=== PATIENT | female | born 1995 | race African-American/Black ===

== ENCOUNTER 2016-12-16 09:57 | Emergency (ER) | payer OTHER ==
[2016-12-16 10:10] VITALS: BP 146/84; PULSE 81; TEMP 98.1; BMI 43.7
[2016-12-16] MEDS ORDERED: FLUORESCEIN NA 1 EA STRIP ONE (10:56)
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
== END 2016-12-16 11:12 | disposition home or self-care (01) ==
LOC: JERFT 09:57
DX: S05.12XA Contusion of eyeball and orbital tissues, left eye, initial encounter (principal); H11.32 Conjunctival hemorrhage, left eye; Y04.2XXA Assault by strike against or bumped into by another person, initial encounter; Y93.89 Activity, other specified; Y92.89 Other specified places as the place of occurrence of the external cause; Y99.8 Other external cause status
CPT/HCPCS: 99281-25

== ENCOUNTER 2017-07-30 21:50 | Inpatient (IN) | payer OTHER ==
[2017-07-30] MEDS ORDERED: ELECTROLYTE-148 SOLN 500 ML IV ONE ×2 (22:20→23:20)
[2017-07-30] MEDS ORDERED: ELECTROLYTE-148 SOLN 1,000 ML IV SCH (23:45)
[2017-07-30] MEDS ORDERED: CITRIC ACID/SODIUM CITRATE 30 ML UNIT-DOSE CUP PO ONE (23:50)
--- NOTE | 2017-07-31 00:01 | HP ---
Past Medical History - Admission Chief Complaint: Labor pain History of Present Illness: 21 yo @ 39 weeks gestation with previous , presents c/o labor pain. She admits to have regular diet at 7pm. She's obese and a repeat was scheduled for 08/03/17. History Source: Patient Limitations to Obtaining History: No Limitations - Past Medical History Cardiovascular: Yes: HTN (not in past). No: Murmur Pulmonary: Yes: Other (no c/o SOB) ...: 2 ...Para: 1 Heme/Onc: Yes: Anemia Endocrine: Yes: Other (morbid obesity). No: Diabetes Mellitus - Past Surgical History Past Surgical History: Yes: Hx Myomectomy: No Hx Transabdominal Cerclage: No - Smoking History Smoking history: Never smoked Have you smoked in the past 12 months: No Aproximately how many cigarettes per day: 5 - Alcohol/Substance Use Hx Alcohol Use: No History of Substance Use: reports: None - Social History History of Recent Travel: No Home Medications - Allergies Allergies/Adverse Reactions: Allergies Allergy/AdvReac Type Severity Reaction Status Date / Time milk Allergy Severe Difficulty Verified 07/30/17 23:47 Breathing No Known Drug Allergies Allergy Severe Difficulty Verified 07/30/17 23:47 Breathing peanut Allergy Severe Difficulty Verified 07/30/17 23:47 Breathing - Home Medications Home Medications: Ambulatory Orders NK [No Known Home Medication] 07/30/17 Family Disease History - Family Disease History Family History: Unremarkable Review of Systems - Review of Systems Constitutional: reports: No Symptoms Eyes: reports: No Symptoms HENT: reports: No Symptoms Neck: reports: No Symptoms Cardiovascular: reports: No Symptoms Respiratory: reports: No Symptoms Gastrointestinal: reports: No Symptoms Genitourinary: reports: Pain Breasts: reports: No Symptoms Reported Musculoskeletal: reports: No Symptoms Integumentary: reports: No Symptoms Neurological: reports: No Symptoms Endocrine: reports: No Symptoms Hematology/Lymphatic: reports: No Symptoms Psychiatric: reports: No Symptoms Pain Intensity: 5 Physical Exam - Maternity Constitutional: Yes: Well Nourished Eyes: Yes: Conjunctiva Clear HENT: Yes: Atraumatic Neck: Yes: Supple, Trachea Midline Cardiovascular: Yes: Regular Rate and Rhythm Lungs: Clear to auscultation Breast(s): Yes: WNL - Abdominal Exam/OB Number of Fetuses: Single Presentation: Vertex - Vaginal Exam/OB Vaginal Bleediing: No Dilatation (cm): 1 Effacement (%): 60 Amniotic Membrane Status: Intact Problem List - Problems (1) Previous section complicating , antepartum condition or complication Code(s): O34.219 - MATERNAL CARE FOR UNSP TYPE SCAR FROM PREVIOUS DEL Assessment/Plan IUP @ 39 weeks Previous Pre op for repeat Low platelets Transfuse platelets Prep and shave Anesthesia to see patient
[2017-07-31 00:05] VITALS: BMI 46.9
[2017-07-31] MEDS ORDERED: IBUPROFEN 600 MG TABLET (FP) PO PRN (07:37)
[2017-07-31] MEDS ORDERED: ONDANSETRON 4 MG/2 ML VIAL IVPB PRN (07:37)
[2017-07-31] MEDS ORDERED: morphine SULFATE/Preservative Free 0.5 MG/ML (1cc Syringe) EP ONE (07:37)
[2017-07-31] MEDS ORDERED: IBUPROFEN 800 MG/8 ML IJ IVPB PRN (07:38)
[2017-07-31] MEDS ORDERED: METHYLERGONOVINE MALEATE 0.2 MG/1 ML AMP IM PRN (08:43)
--- NOTE | 2017-07-31 08:46 | OP ---
Operative Note - Note: Operative Date: 07/31/17 Pre-Operative Diagnosis: Previous in labor Operation: Repeat Low Transverse Post-Operative Diagnosis: Same as Pre-op Surgeon: Kelsey Sherman Drupal Developer: Wero Ferguson Anesthesia: Spinal Specimens Removed: Placenta Estimated Blood Loss (mls): 600
[2017-07-31 09:46] LABS: MCH 24.8 pg (25.7-33.7); MCHC 32.2 g/dl (32.0-36.0); MEAN PLT VOLUME 10.8 fl (7.5-11.1); PLATELET COUNT 95 K/MM3 (134-434); WHITE BLOOD COUNT 6.6 K/mm3 (4.0-10.0)
[2017-07-31] MEDS: OXYTOCIN 20 UNITS in 0.9% NS 1,000 ML IV SCH ×2 (09:46→16:49)
[2017-07-31] MEDS ORDERED: TUBERCULIN PPD 5 TU/0.1ML SYRINGE (IN PATIENT USE ONLY) ID ONE (11:00)
[2017-07-31] MEDS: FERROUS SO4 325 MG TABLET (FP) PO SCH ×2 (11:18→22:58)
[2017-07-31] MEDS: PRENATAL VITAMINS W/ FOLIC ACID TABLET (FP) PO SCH (11:19)
[2017-08-01 08:05] LABS: BASOPHIL 0.8 % (0-2.0); EOSINOPHIL 0.7 % (0-4.5); MCH 24.5 pg (25.7-33.7); MCHC 32.3 g/dl (32.0-36.0); MEAN CELL VOLUME 75.9 fl (80-96); MEAN PLT VOLUME 10.7 fl (7.5-11.1); NEUTROPHILS 79.1 % (42.8-82.8); PLATELET COUNT 95 K/MM3 (134-434); RDW 16.5 % (11.6-15.6); WHITE BLOOD COUNT 8.3 K/mm3 (4.0-10.0)
--- NOTE | 2017-08-01 08:42 | PN ---
Progress Note (short form) - Note Progress Note: Post op day#1.S/P C Section under spinal anesthesia with duramorph uneventful.Patient stable has little pain for which she is on medication.No any anesthesia related problem.Patient DC from the anesthesia care.
[2017-08-01] MEDS ORDERED: BISACODYL 10 MG SUPP.RECT RC PRN (08:43)
[2017-08-01] MEDS: OXYTOCIN 20 UNITS in 0.9% NS 1,000 ML IV SCH (08:45)
--- NOTE | 2017-08-01 09:34 | PN ---
Post Progress Note - Subjective Subjective: 21 yo Para 2, status post repeat seen and evaluated. She's lying in bed, doing well, no complaints. Post Day: 1 Type of Delivery: Repeat C/S Vital Signs: Vital Signs Temperature 99.3 F 08/01/17 05:57 Pulse Rate 71 08/01/17 05:57 Respiratory Rate 20 08/01/17 05:57 Blood Pressure 116/68 08/01/17 05:57 O2 Sat by Pulse Oximetry (%) 100 07/31/17 09:45 Breast Exam: Yes: Soft Uterus: Yes: Fundus Firm Incision: Yes: Dressing dry and intact Abdomen/GI: Yes: Abdomen soft, Tolerating PO Lochia: Yes: Rubra Lochia, amount: Small Extremities: Yes: Calves non-tender Perineum: Yes: Intact Activity: Ambulating - Labs Labs: CBC WBC 8.3 K/mm3 (4.0-10.0) 08/01/17 07:35 RBC 4.54 M/mm3 (3.60-5.2) 08/01/17 07:35 Hgb 11.1 GM/dL (10.7-15.3) 08/01/17 07:35 Hct 34.5 % (32.4-45.2) 08/01/17 07:35 MCV 75.9 fl (80-96) L 08/01/17 07:35 MCH 24.5 pg (25.7-33.7) L 08/01/17 07:35 MCHC 32.3 g/dl (32.0-36.0) 08/01/17 07:35 RDW 16.5 % (11.6-15.6) H 08/01/17 07:35 Plt Count 95 K/MM3 (134-434) L 08/01/17 07:35 MPV 10.7 fl (7.5-11.1) 08/01/17 07:35 Neutrophils % 79.1 % (42.8-82.8) 08/01/17 07:35 Lymphocytes % 13.8 % (8-40) D 08/01/17 07:35 Monocytes % 5.6 % (3.8-10.2) 08/01/17 07:35 Eosinophils % 0.7 % (0-4.5) 08/01/17 07:35 Basophils % 0.8 % (0-2.0) 08/01/17 07:35 Problem List - Problems (1) Previous section complicating , antepartum condition or complication Code(s): O34.219 - MATERNAL CARE FOR UNSP TYPE SCAR FROM PREVIOUS DEL Assessment/Plan Status post repeat Ambulation Analgesia as needed Continue routine Post op care
[2017-08-01] MEDS: PRENATAL VITAMINS W/ FOLIC ACID TABLET (FP) PO SCH (10:00)
[2017-08-01] MEDS: FERROUS SO4 325 MG TABLET (FP) PO SCH ×2 (10:00→22:00)
[2017-08-01] MEDS: ACETAMINOPHEN 325 MG TABLET (FP) PO PRN (19:09)
[2017-08-01] MEDS: IBUPROFEN 600 MG TABLET (FP) PO PRN (19:09)
[2017-08-01] MEDS: oxyCODONE HCL 5 MG TABLET PO PRN (19:15)
[2017-08-01] MEDS: SIMETHICONE 80 MG TAB.CHEW (FP) PO PRN (19:15)
[2017-08-02] MEDS: SIMETHICONE 80 MG TAB.CHEW (FP) PO PRN ×2 (07:11→17:32)
[2017-08-02] MEDS: IBUPROFEN 600 MG TABLET (FP) PO PRN ×2 (07:11→17:32)
[2017-08-02] MEDS: ACETAMINOPHEN 325 MG TABLET (FP) PO PRN (07:11)
--- NOTE | 2017-08-02 07:23 | PN ---
Post Progress Note Post Day: 3 Type of Delivery: Repeat C/S Vital Signs: Vital Signs Temperature 99.1 F 08/01/17 22:00 Pulse Rate 72 08/01/17 22:00 Respiratory Rate 20 08/01/17 22:00 Blood Pressure 143/68 08/01/17 22:00 O2 Sat by Pulse Oximetry (%) 100 07/31/17 09:45 Breast Exam: Yes: Soft Uterus: Yes: Fundus Firm Abdomen/GI: Yes: Abdomen soft Lochia: Yes: Rubra Lochia, amount: Small Extremities: Yes: Calves non-tender Perineum: Yes: Intact Activity: Ambulating - Labs Labs: CBC WBC 8.3 K/mm3 (4.0-10.0) 08/01/17 07:35 RBC 4.54 M/mm3 (3.60-5.2) 08/01/17 07:35 Hgb 11.1 GM/dL (10.7-15.3) 08/01/17 07:35 Hct 34.5 % (32.4-45.2) 08/01/17 07:35 MCV 75.9 fl (80-96) L 08/01/17 07:35 MCH 24.5 pg (25.7-33.7) L 08/01/17 07:35 MCHC 32.3 g/dl (32.0-36.0) 08/01/17 07:35 RDW 16.5 % (11.6-15.6) H 08/01/17 07:35 Plt Count 95 K/MM3 (134-434) L 08/01/17 07:35 MPV 10.7 fl (7.5-11.1) 08/01/17 07:35 Neutrophils % 79.1 % (42.8-82.8) 08/01/17 07:35 Lymphocytes % 13.8 % (8-40) D 08/01/17 07:35 Monocytes % 5.6 % (3.8-10.2) 08/01/17 07:35 Eosinophils % 0.7 % (0-4.5) 08/01/17 07:35 Basophils % 0.8 % (0-2.0) 08/01/17 07:35 Assessment/Plan doing well minimal pain oob reg diet
[2017-08-02] MEDS: FERROUS SO4 325 MG TABLET (FP) PO SCH ×2 (10:00→21:51)
[2017-08-02] MEDS: PRENATAL VITAMINS W/ FOLIC ACID TABLET (FP) PO SCH (10:00)
--- NOTE | 2017-08-02 13:25 | PATH ---
Surgical Pathology Report Patient Name: CHARLES BRYANT Med. Rec. 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 Specimen(s) Received PLACENTA Clinical History Final Diagnosis PLACENTA, DELIVERY: FOCALLY DISRUPTED THIRD TRIMESTER PLACENTA WITH SUBCHORIONIC AND INTERVILLOUS FIBRIN DEPOSITION, THREE VESSEL UMBILICAL CORD AND UNREMARKABLE PLACENTAL MEMBRANES. Electronically Signed Jose Viramontes M.D. Gross Description The specimen is received fresh labeled placenta and is a 637 gram, 21.0 x 18.0 x 2.8 cm. placenta with attached membranes and umbilical cord. The attached membranes are mendez, translucent with focal opacities and insert marginally. The umbilical cord measures 32 cm. in length and averages 1.2 cm. in diameter. The cord inserts eccentrically, 5 cm. to the nearest margin. No true knots or strictures are identified. Cut surface of the umbilical cord reveals 3 vessels. The surface is witt-blue with minimal fibrin deposition and appropriate caliber vessels. The maternal surface is red-brown with focal defects. Sectioning reveals red-brown, spongy parenchyma. No lesions are identified. Follow Up Clerk sections are submitted in three cassettes as follows: 1- membrane rolls and umbilical cord; 2-3- full thickness sections of placenta. 08/01/201708/01/2017
[2017-08-02] MEDS: oxyCODONE HCL 5 MG TABLET PO PRN (17:32)
[2017-08-03] MEDS: oxyCODONE HCL 5 MG TABLET PO PRN (02:36)
[2017-08-03] MEDS: SIMETHICONE 80 MG TAB.CHEW (FP) PO PRN (02:36)
[2017-08-03] MEDS: IBUPROFEN 600 MG TABLET (FP) PO PRN (02:41)
[2017-08-03] MEDS: ACETAMINOPHEN 325 MG TABLET (FP) PO PRN (02:42)
[2017-08-03 08:30] LABS: BASOPHIL 0.5 % (0-2.0); EOSINOPHIL 3.2 % (0-4.5); MCH 24.6 pg (25.7-33.7); MCHC 32.1 g/dl (32.0-36.0); MEAN CELL VOLUME 76.7 fl (80-96); MEAN PLT VOLUME 11.1 fl (7.5-11.1); NEUTROPHILS 59.7 % (42.8-82.8); PLATELET COUNT 104 K/MM3 (134-434); RDW 16.4 % (11.6-15.6); WHITE BLOOD COUNT 5.8 K/mm3 (4.0-10.0)
[2017-08-03] MEDS: PRENATAL VITAMINS W/ FOLIC ACID TABLET (FP) PO SCH (09:20)
[2017-08-03] MEDS: FERROUS SO4 325 MG TABLET (FP) PO SCH (09:20)
[2017-08-03 10:26] VITALS: BP 126/63; PULSE 68; TEMP 98.1
== END 2017-08-03 12:00 | disposition home or self-care (01) | DRG 540 ==
LOC: JDEL 21:50 → JLDR 23:00 → J3W 07-31 10:04
PROVIDERS: ADMIT Obstetrics & Gynecology; ATTEND Obstetrics & Gynecology
PROC: 10D00Z1 Extraction of Products of Conception, Low, Open Approach (ICD-10-PCS; principal; 2017-07-31)
DX: O34.211 Maternal care for low transverse scar from previous cesarean delivery (principal); E66.01 Morbid (severe) obesity due to excess calories; Z68.42 Body mass index [BMI] 45.0-49.9, adult; Z3A.39 39 weeks gestation of pregnancy; Z37.0 Single live birth
CPT/HCPCS: 36415; 36430; 85025; 85027; 88307-TC; 94010; P9034

== ENCOUNTER 2017-08-11 18:14 | Emergency (ER) | payer OTHER ==
[2017-08-11 18:25] VITALS: BP 134/80; PULSE 65; TEMP 98.6; BMI 41.6
--- NOTE | 2017-08-11 19:17 | PDOC ---
History of Present Illness - General Chief Complaint: Wound Stated Complaint: SUTURE CHECK Time Seen by Provider: 08/11/17 18:28 History Source: Patient Exam Limitations: No Limitations - History of Present Illness Initial Comments: 08/11/17 19:38 21-year-old female with no medical history, presents to the emergency department complaining of malodorous, watery discharge to her incision 2 days. Patient states she noticed some of the brian are loose to her incision. Patient had a on 07/31/2017. Patient denies fever, chills, headache, dizziness, lightheadedness, nausea/vomiting, chest pain, shortness of breath, abdominal pains, flank pains, urinary symptoms. Timing/Duration: reports: week Past History - Past Medical History Allergies/Adverse Reactions: Allergies Allergy/AdvReac Type Severity Reaction Status Date / Time milk Allergy Severe Difficulty Verified 08/11/17 18:21 Breathing No Known Drug Allergies Allergy Severe Difficulty Verified 08/11/17 18:21 Breathing peanut Allergy Severe Difficulty Verified 08/11/17 18:21 Breathing Home Medications: Ambulatory Orders Cephalexin [Keflex] 500 mg PO TID #15 capsule 08/11/17 Sulfamethoxazole/Trimethoprim [Bactrim Ds -] 1 tab PO BID #14 tablet 08/11/17 Anemia: Yes Asthma: No Cancer: No Cardiac Disorders: No Diabetes: No HTN: Yes Seizures: No Thyroid Disease: No - Surgical History Abdominal Surgery: Yes - Reproductive History (#): 1 Para: 0 - Suicide/Smoking/Psychosocial Hx Smoking Status: Yes Smoking History: Current every day smoker Have you smoked in the past 12 months: No Number of Cigarettes Smoked Daily: 7 Information on smoking cessation initiated: No 'Breaking Loose' booklet given: 09/14/16 Hx Alcohol Use: No Drug/Substance Use Hx: No Substance Use Type: None Hx Substance Use Treatment: No Review of Systems - Review of Systems Able to Perform ROS?: Yes Comments:: 08/11/17 19:38 CONSTITUTIONAL: Absent: fever, chills, diaphoresis, generalized weakness, malaise, loss of appetite HEENT: Absent: rhinorrhea, nasal congestion, throat pain, throat swelling, difficulty swallowing, mouth swelling, ear pain, eye pain, visual Changes CARDIOVASCULAR: Absent: chest pain, loss of consciousness, palpitations, irregular heart rate, peripheral edema RESPIRATORY: Absent: cough, shortness of breath, dyspnea with exertion, orthopnea, wheezing, stridor, hemoptysis GASTROINTESTINAL: Absent: abdominal pain, abdominal distension, nausea, vomiting, diarrhea, constipation, melena, hematochezia GENITOURINARY: Absent: dysuria, frequency, urgency, hesitancy, hematuria, flank pain, genital pain MUSCULOSKELETAL: Absent: myalgia, arthralgia, joint swelling SKIN: 10cm horizontal lower pelvic c section incision/+drainage/malodorous Absent: rash, itching, pallor Is the patient limited Nepali proficient: No *Physical Exam - Vital Signs Last Vital Signs Temp Pulse Resp BP Pulse Ox 98.6 F 65 18 134/80 100 08/11/17 18:20 08/11/17 18:20 08/11/17 18:20 08/11/17 18:20 08/11/17 18:20 - Physical Exam Comments: 08/11/17 19:38 GENERAL: Well developed, well nourished. Awake and alert. No acute distress. HEENT: Normocephalic, atraumatic. PERRLA, EOMI. No conjunctival pallor. Sclera are non- icteric. Moist mucous membranes. Oropharynx is clear. NECK: Supple. Full ROM. No JVD. Carotid pulses 2+ and symmetric, without bruits. No thyromegaly. No lymphadenopathy. CARDIOVASCULAR: Regular rate and rhythm. No murmurs, rubs, or gallops. Distal pulses are 2+ and symmetric. PULMONARY: No evidence of respiratory distress. Lungs clear to auscultation bilaterally. No wheezing, rales or rhonchi. ABDOMINAL: Soft. Non-tender. Non-distended. No rebound or guarding. No organomegaly. Normoactive bowel sounds. MUSCULOSKELETAL Normal range of motion at all joints. No bony deformities or tenderness. No CVA tenderness. EXTREMITIES: No cyanosis. No clubbing. No edema. No calf tenderness. SKIN: 10 cm horizontal incision to lower pelvic abd/ Brian mid section loose/skin dehisced to the mid section with mild purulent discharge/malodorous Warm and dry. Normal capillary refill. No rashes. No jaundice. Progress Note - Progress Note Progress Note: 1942 hrs: Dr. Kelsey Sherman [phone]/ Pt's Roll Tester 1945rhs: Called Dr. 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
[2017-08-11] MEDS ORDERED: CEPHALEXIN MONOHYDRATE 500 MG CAPSULE (UD) PO ONE (19:33)
[2017-08-11] MEDS ORDERED: SULFAMETHOXAZOLE/TRIMETHOPRIM 800MG/160MG D.S. TABLET PO ONE (19:33)
[2017-08-11] MEDS ORDERED: CEPHALEXIN MONOHYDRATE 500 MG CAPSULE (UD) ONE (19:36)
[2017-08-11] MEDS ORDERED: SULFAMETHOXAZOLE/TRIMETHOPRIM 800MG/160MG D.S. TABLET ONE (19:36)
--- NOTE | 2017-08-14 22:07 | PDOC ---
Patient Follow-up (Call Back) - Post ED Follow - Up Chief Complaint: Wound Infection Condition at time of discharge: Stable Disposition at time of original discharge: HOME Reason for Call Back: Abnwl. Microbiology (Wound culture with multiple different organisms. Pt. placed on bactrim and keflex. Spoke with pt, states she followed up with her linotypist and they are monitoring her incision site. Taking antibiotics as prescribed.)
--- NOTE | 2017-08-19 06:45 | PDOC ---
Patient Follow-up (Call Back) - Post ED Follow - Up Condition at time of discharge: Stable Disposition at time of original discharge: HOME Reason for Call Back: Abnwl. Microbiology (wound cx + for proteus mirabilis, enterobacter aerogenes, entero faecalis, strep viridans, and diptheroid/ corynabacterium. Pt placed on keflex and bactrim which will cover organisms except entero faecalis. Levaquin showed sensativity. Rx for levaquin sent to [facility].)
== END 2017-08-11 20:33 | disposition home or self-care (01) ==
LOC: JERFT 18:14 → SUPCPDRO 18:14 → JERFT 20:33
DX: O90.0 Disruption of cesarean delivery wound (principal); O16.5 Unspecified maternal hypertension, complicating the puerperium
CPT/HCPCS: 87070; 87076; 87186; 87205; 99281-25

== ENCOUNTER 2018-10-21 21:15 | Emergency (ER) | payer OTHER ==
[2018-10-21 21:27] VITALS: BP 142/78; PULSE 90; BMI 45.1
[2018-10-21] MEDS ORDERED: ACETAMINOPHEN 500 MG TABLET (FP) PO ONE (21:44)
[2018-10-21] MEDS ORDERED: ACETAMINOPHEN 325 MG TABLET (FP) ONE (21:48)
--- NOTE | 2018-10-21 22:45 | PDOC ---
History of Present Illness - General Chief Complaint: Cold Symptoms Stated Complaint: FEVER, CHILLS, THROAT PAIN Time Seen by Provider: 10/21/18 22:33 History Source: Patient Exam Limitations: Clinical Condition - History of Present Illness Initial Comments: 10/21/18 22:41 Patient with no significant past medication history present with complaint of nasal congestion, runny nose, fever and sore throat since yesterday. Patient denies cough, diarrhea or vomiting. Patient denies any other symptoms. Timing/Duration: 24 hours Past History - Past Medical History Allergies/Adverse Reactions: Allergies Allergy/AdvReac Type Severity Reaction Status Date / Time milk Allergy Severe Difficulty Verified 10/21/18 21:28 Breathing No Known Drug Allergies Allergy Severe Difficulty Verified 10/21/18 21:28 Breathing peanut Allergy Severe Difficulty Verified 10/21/18 21:28 Breathing Home Medications: Ambulatory Orders Amox-Tr/K Cl [Augmentin - 875Mg Tablet] 1 tab PO BID #14 tablet 10/21/18 Ipratropium [place] 2 spray NS BID PRN #1 spray 10/21/18 Anemia: Yes Asthma: No Cancer: No Cardiac Disorders: Yes (bradycardia) COPD: No Diabetes: No HTN: Yes Seizures: No Thyroid Disease: No - Surgical History Abdominal Surgery: (Yes- ) - Reproductive History (#): 1 Para: 0 - Immunization History Immunization Up to Date: No - Suicide/Smoking/Psychosocial Hx Smoking Status: Yes Smoking History: Current every day smoker Have you smoked in the past 12 months: No Number of Cigarettes Smoked Daily: 8 Information on smoking cessation initiated: No 'Breaking Loose' booklet given: 09/14/16 Hx Alcohol Use: No Drug/Substance Use Hx: No Substance Use Type: None Hx Substance Use Treatment: No Review of Systems - Review of Systems Able to Perform ROS?: Yes Is the patient limited Setswana proficient: No Constitutional: Yes: Fever, Malaise HEENTM: Yes: Symptoms Reported, See HPI, Nose Congestion. No: Eye Pain, Blurred Vision, Tearing, Recent change in vision, Double Vision, Cataracts, Ear Pain, Ocular Prothesis, Ear Discharge, Nose Pain, Tinnitus, Nose Bleeding, Hearing Loss, Throat Pain, Throat Swelling, Mouth Pain, Dental Problems, Difficulty Swallowing, Mouth Swelling, Other Respiratory: No: Symptoms reported, See HPI, Cough, Orthopnea, Shortness of Breath, SOB with Exertion, SOB at Rest, Stridor, Wheezing, Productive cough, Hemoptysis, Other Cardiac (ROS): No: Symptoms Reported, See HPI, Chest Pain, Edema, Irregular Heart Rate, Lightheadedness, Palpitations, Syncope, Chest Tightness, Other ABD/GI: No: Nausea, Vomiting All Other Systems: Reviewed and Negative *Physical Exam - Vital Signs Last Vital Signs Temp Pulse Resp BP Pulse Ox 102.5 F H 90 18 142/78 100 10/21/18 21:22 10/21/18 21:22 10/21/18 21:22 10/21/18 21:22 10/21/18 21:22 - Physical Exam Comments: 10/21/18 22:44 GENERAL: Well developed, well nourished. Awake and alert. No acute distress. HEENT: Normocephalic, atraumatic. PERRLA, EOMI. No conjunctival pallor. Sclera are non-icteric. Moist mucous membranes. Oropharynx is clear. NECK: Supple. Full ROM. CARDIOVASCULAR: Regular rate and rhythm. No murmurs, rubs, or gallops. Distal pulses are 2+ and symmetric. PULMONARY: No evidence of respiratory distress. Lungs clear to auscultation bilaterally. No wheezing, rales or rhonchi. ABDOMINAL: Soft. Non-tender. Non-distended. No rebound or guarding. No organomegaly. Normoactive bowel sounds. MUSCULOSKELETAL Normal range of motion at all joints. EXTREMITIES: No cyanosis. No clubbing. No edema. No calf tenderness. SKIN: Warm and dry. Normal capillary refill. No rashes. No jaundice. NEUROLOGICAL: Alert, awake, appropriate. Gait is normal without ataxia. PSYCHIATRIC: Cooperative. Good eye contact. Appropriate mood General Appearance: Yes: Nourished, Appropriately Dressed. No: Apparent Distress Moderate Sedation - Procedure Monitoring Vital Signs: Procedure Monitoring Vital Signs Temperature 102.5 F H 10/21/18 21:22 Pulse Rate 90 10/21/18 21:22 Respiratory Rate 18 10/21/18 21:22 Blood Pressure 142/78 10/21/18 21:22 O2 Sat by Pulse Oximetry (%) 100 10/21/18 21:22 ED Treatment Course - Medications Given in the ED: ED Medications Discontinued Medications Generic Name Dose Route Start Last Admin Trade Name Freq PRN Reason Stop Dose Admin Acetaminophen 975 mg 10/21/18 21:44 10/21/18 21:50 Tylenol - PO 10/21/18 21:45 975 mg ONCE ONE Administration Medical Decision Making - Medical Decision Making 10/21/18 22:44 Patient with no significant past medical history present with complaint of nasal congestion, fever, bodyaches and sore throat since yesterday. Clinical exam unremarkable except fever. Tylenol given for fever. Rapid strep and rapid flu tests ordered. Treat based on lab results 10/21/18 23:11 Rapid strep positive. Rapid flu negative. Patient is stable for discharge for outpatient treatment for strep pharyngitis with Augmentin and nasal spray for nasal congestion. *DC/Admit/Observation/Transfer Diagnosis at time of Disposition: Strep pharyngitis Fever Qualifiers: Fever type: unspecified Qualified Code(s): R50.9 - Fever, unspecified - Discharge Dispostion Disposition: HOME Condition at time of disposition: Stable Decision to Admit order: No - Prescriptions Prescriptions: Amox-Tr/K Cl [Augmentin - 875Mg Tablet] 1 tab PO BID #14 tablet Ipratropium [place] 2 spray NS BID PRN #1 spray PRN Reason: nasal congestion - Referrals - Patient Instructions Printed Discharge Instructions: Strep Throat Additional Instructions: Your strep was positive. Take medication as prescribed. Alternate between Tylenol and Motrin as needed for fever. Increase fluid intake. Follow-up with primary care as needed - Post Discharge Activity Forms/Work/School Notes: Back to Work
[2018-10-21 22:59] VITALS: TEMP 101.1
== END 2018-10-21 23:11 | disposition home or self-care (01) ==
LOC: JERFT 21:15
DX: J02.0 Streptococcal pharyngitis (principal); B95.0 Streptococcus, group A, as the cause of diseases classified elsewhere; I10 Essential (primary) hypertension; F17.210 Nicotine dependence, cigarettes, uncomplicated
CPT/HCPCS: 87804; 87880; 99281-25

== ENCOUNTER 2019-01-09 06:02 | Emergency (ER) | payer OTHER ==
[2019-01-09 06:37] VITALS: BP 136/74; PULSE 86; TEMP 98.7; BMI 44.8
[2019-01-09] MEDS ORDERED: SODIUM CHLORIDE 1,000 ML IV STA (08:31)
[2019-01-09] MEDS ORDERED: ONDANSETRON 4 MG/2 ML VIAL IVPB ONE (08:32)
[2019-01-09] MEDS ORDERED: FAMOTIDINE 20 MG/50 ML IVPB 20 MG/50 ML MG IVPB ONE ×2 (08:32→08:43)
[2019-01-09] MEDS ORDERED: ONDANSETRON 4 MG/2 ML VIAL ONE (08:43)
[2019-01-09 09:02] LABS: HCG,QUALITATIVE URINE Negative
[2019-01-09 09:03] LABS: BASO % 0.4 % (0-2.0); EOS % 1.5 % (0-4.5); HEMOGLOBIN 12.9 GM/dL (10.7-15.3); MCH 27.5 pg (25.7-33.7); MCHC 33.9 g/dl (32.0-36.0); MEAN PLT VOLUME 11.3 fl (7.5-11.1); MONO % 6.2 % (3.8-10.2); NEUT % 63.9 % (42.8-82.8); PLATELET COUNT 134 K/MM3 (134-434); RBC 4.69 M/mm3 (3.60-5.2); RDW 15.8 % (11.6-15.6); WHITE BLOOD COUNT 5.9 K/mm3 (4.0-10.0)
[2019-01-09 09:13] LABS: URINE APPEARANCE SLCLOUDY; URINE BILIRUBIN NEGATIVE (<2.0 mg/dL); URINE COLOR YELLOW; URINE GLUCOSE (UA) NEGATIVE (NEGATIVE); URINE KETONE NEGATIVE (NEGATIVE); URINE LEUK ESTERASE NEGATIVE (NEGATIVE); URINE NITRITE NEGATIVE (NEGATIVE); URINE PROTEIN NEGATIVE (NEGATIVE); URINE UROBILINOGEN 4.0 E.U/dl mg/dL (0.2-1.0)
[2019-01-09 09:26] LABS: ALBUMIN 3.3 g/dl (3.4-5.0); ALK PHOS 107 U/L (45-117); ANION GAP 5 MMOL/L (8-16); BILIRUBIN,TOTAL 0.4 mg/dL (0.2-1); BLOOD UREA NITROGEN 14 mg/dL (7-18); CALCIUM 8.5 mg/dL (8.5-10.1); CHLORIDE 108 mmol/L (98-107); CO2 26 mmol/L (21-32); CREATININE 0.8 mg/dL (0.55-1.3); GLUCOSE,RANDOM 97 mg/dL (74-106); LIPASE 194 U/L (73-393); POTASSIUM 4.4 mmol/L (3.5-5.1); SGOT/AST 147 U/L (15-37); SGPT/ALT 89 U/L (13-61); SODIUM 138 mmol/L (136-145); TOT PROT 7.1 g/dl (6.4-8.2)
--- NOTE | 2019-01-09 10:11 | PDOC ---
History of Present Illness - General History Source: Patient Exam Limitations: No Limitations - History of Present Illness Initial Comments: 01/09/19 10:44 The patient is a 23-year-old female, with a past medical history of anemia, HTN , and gallstones, who presents to the ED with epigastric pain that began this morning and is constant, sharp in sensation, with radiation to her chest, worsened after [place] food consumption last night, with associated nausea, vomiting, diarrhea and chest pain. Patient had 4 episodes of nonbloody/ nonbilious emesis and 2 episodes of watery stools. Last menstrual period was on 12/20. The patient denies any fevers or chills. Denies any palpitations or shortness of breath. Denies any urinary symptoms. Allergies: NKDA, milk, peanut. Social History: Reports tobacco use. Denies any alcohol or drug use. Surgical History: None reported. <Lisa Oconnor - Last Filed: 01/09/19 12:01> <Hugh Villanueva - Last Filed: 01/09/19 12:52> - General Chief Complaint: Pain Stated Complaint: Epigastric Pain Time Seen by Provider: 01/09/19 08:12 Past History <Lisa Oconnor - Last Filed: 01/09/19 12:01> - Past Medical History Anemia: Yes Asthma: No Cancer: No Cardiac Disorders: Yes (bradycardia) COPD: No Diabetes: No HTN: Yes Seizures: No Thyroid Disease: No - Surgical History Abdominal Surgery: (Yes- ) - Reproductive History (#): 1 Para: 0 - Immunization History Immunization Up to Date: No - Suicide/Smoking/Psychosocial Hx Smoking Status: Yes Smoking History: Never smoked Have you smoked in the past 12 months: No Number of Cigarettes Smoked Daily: 8 Information on smoking cessation initiated: No 'Breaking Loose' booklet given: 09/14/16 Hx Alcohol Use: No Drug/Substance Use Hx: No Substance Use Type: None Hx Substance Use Treatment: No <Hugh Villanueva - Last Filed: 01/09/19 12:52> - Past Medical History Allergies/Adverse Reactions: Allergies Allergy/AdvReac Type Severity Reaction Status Date / Time milk Allergy Severe Difficulty Verified 01/09/19 06:37 Breathing No Known Drug Allergies Allergy Severe Difficulty Verified 01/09/19 06:37 Breathing peanut Allergy Severe Difficulty Verified 01/09/19 06:37 Breathing Home Medications: Ambulatory Orders Amox-Tr/K Cl [Augmentin - 875Mg Tablet] 1 tab PO BID #14 tablet 10/21/18 Ipratropium [place] 2 spray NS BID PRN #1 spray 10/21/18 Review of Systems - Review of Systems Able to Perform ROS?: Yes Comments:: 01/09/19 10:44 CONSTITUTIONAL: No fever, no chills, no fatigue EYES: No visual changes ENT: No ear pain, no sore throat CARDIOVASCULAR: (+)Chest pain. No palpitations RESPIRATORY: No cough, no SOB GI: (+)abdominal pain, nausea, vomiting, diarrhea. No constipation. GENITOURINARY: No dysuria, no frequency, no hematuria MUSKULOSKELETAL: No back pain, no joint pain, no myalgias SKIN: No rash NEURO: No headache <Lisa Oconnor - Last Filed: 01/09/19 12:01> *Physical Exam - Vital Signs Last Vital Signs Temp Pulse Resp BP Pulse Ox 98.7 F 86 19 136/74 100 01/09/19 06:05 01/09/19 06:05 01/09/19 06:05 01/09/19 06:05 01/09/19 06:05 - Physical Exam Comments: 01/09/19 10:45 CONSTITUTIONAL: Well-appearing; well-nourished; in no apparent distress HEAD: Normocephalic; atraumatic EYES: PERRL; EOM intact ENMT: External appears normal; normal oropharynx NECK: Supple; non-tender; no cervical lymphadenopathy CARD: Normal S1, S2; no murmurs, rubs, or gallops RESP: Normal chest excursion with respiration; breath sounds clear and equal bilaterally; no wheezes, rhonchi, or rales ABD: (+)Mild RUQ pain. Soft, non-distended; no palpable organomegaly, no palpable hernias EXT: Normal ROM in all four extremities; non-tender to palpation; distal pulses intact SKIN: Warm, dry, no rash NEURO: No focal neurological deficiencies. <Lisa Oconnor - Last Filed: 01/09/19 12:01> - Vital Signs Last Vital Signs Temp Pulse Resp BP Pulse Ox 98.7 F 86 19 136/74 100 01/09/19 06:05 01/09/19 06:05 01/09/19 06:05 01/09/19 06:05 01/09/19 06:05 <Hugh Villanueva - Last Filed: 01/09/19 12:52> Moderate Sedation - Procedure Monitoring Vital Signs: Procedure Monitoring Vital Signs Temperature 98.7 F 01/09/19 06:05 Pulse Rate 86 01/09/19 06:05 Respiratory Rate 19 01/09/19 06:05 Blood Pressure 136/74 01/09/19 06:05 O2 Sat by Pulse Oximetry (%) 100 01/09/19 06:05 <Lisa Oconnor - Last Filed: 01/09/19 12:01> - Procedure Monitoring Vital Signs: Procedure Monitoring Vital Signs Temperature 98.7 F 01/09/19 06:05 Pulse Rate 86 01/09/19 06:05 Respiratory Rate 01/09/19 06:05 Blood Pressure 136/74 01/09/19 06:05 O2 Sat by Pulse Oximetry (%) 100 01/09/19 06:05 <Hugh Villanueva - Last Filed: 01/09/19 12:52> ED Treatment Course - LABORATORY CBC & Chemistry Diagram: 01/09/19 08:38 01/09/19 08:38 - ADDITIONAL ORDERS Additional order review: Laboratory Results 01/09/19 01/09/19 08:38 08:38 Sodium 138 Potassium 4.4 Chloride 108 H Carbon Dioxide 26 Anion Gap 5 L BUN 14 Creatinine 0.8 Creat Clearance w eGFR 87.40 Random Glucose 97 Calcium 8.5 Total Bilirubin 0.4 AST 147 H ALT 89 H Alkaline Phosphatase 107 Total Protein 7.1 Albumin 3.3 L Lipase 194 Urine Color Yellow Urine Appearance Slcloudy Urine pH 6.0 Ur Specific [place] 1.028 Urine Protein Negative Urine Glucose (UA) Negative Urine Ketones Negative Urine Blood Negative Urine Nitrite Negative Urine Bilirubin Negative Urine Urobilinogen 4.0 e.u/dl H Ur Leukocyte Esterase Negative Urine HCG, Qual Negative 01/09/19 08:38 RBC 4.69 MCV 81.0 MCHC 33.9 RDW 15.8 H MPV 11.3 H Neutrophils % 63.9 D Lymphocytes % 28.0 D Monocytes % 6.2 Eosinophils % 1.5 Basophils % 0.4 - Medications Given in the ED: ED Medications Discontinued Medications Generic Name Dose Route Start Last Admin Trade Name Freq PRN Reason Stop Dose Admin Sodium Chloride 1,000 mls @ 1,000 mls/hr 01/09/19 08:31 01/09/19 08:50 Normal Saline - IV 01/09/19 09:30 1,000 mls/hr ASDIR STA Administration Famotidine/Sodium Chloride 20 mg in 50 mls @ 100 mls/hr 01/09/19 08:32 08:50 Pepcid 20 Mg Premixed Ivpb - IVPB 01/09/19 09:01 100 mls/hr ONCE ONE Administration Ondansetron HCl 8 mg 01/09/19 08:32 01/09/19 08:50 Zofran Injection IVPB 01/09/19 08:33 8 mg ONCE ONE Administration <Lisa Oconnor - Last Filed: 01/09/19 12:01> - LABORATORY CBC & Chemistry Diagram: 01/09/19 08:38 01/09/19 08:38 - ADDITIONAL ORDERS Additional order review: Laboratory Results 01/09/19 01/09/19 08:38 08:38 Sodium 138 Potassium 4.4 Chloride 108 H Carbon Dioxide 26 Anion Gap 5 L BUN 14 Creatinine 0.8 Creat Clearance w eGFR 87.40 Random Glucose 97 Calcium 8.5 Total Bilirubin 0.4 AST 147 H ALT 89 H Alkaline Phosphatase 107 Total Protein 7.1 Albumin 3.3 L Lipase 194 Urine Color Yellow Urine Appearance Slcloudy Urine pH 6.0 Ur Specific [place] 1.028 Urine Protein Negative Urine Glucose (UA) Negative Urine Ketones Negative Urine Blood Negative Urine Nitrite Negative Urine Bilirubin Negative Urine Urobilinogen 4.0 e.u/dl H Ur Leukocyte Esterase Negative Urine HCG, Qual Negative 01/09/19 08:38 RBC 4.69 MCV 81.0 MCHC 33.9 RDW 15.8 H MPV 11.3 H Neutrophils % 63.9 D Lymphocytes % 28.0 D Monocytes % 6.2 Eosinophils % 1.5 Basophils % 0.4 - RADIOLOGY Radiology Studies Ordered: Category Date Time Status ABDOMEN US -LIMITED [US] Stat Ultrasound 01/09/19 08:32 Ordered - Medications Given in the ED: ED Medications Discontinued Medications Generic Name Dose Route Start Last Admin Trade Name Rocco PRN Reason Stop Dose Admin Sodium Chloride 1,000 mls @ 1,000 mls/hr 01/09/19 08:31 01/09/19 08:50 Normal Saline - IV 01/09/19 09:30 1,000 mls/hr ASDIR STA Administration Famotidine/Sodium Chloride 20 mg in 50 mls @ 100 mls/hr 01/09/19 08:32 08:50 Pepcid 20 Mg Premixed Ivpb - IVPB 01/09/19 09:01 100 mls/hr ONCE ONE Administration Ondansetron HCl 8 mg 01/09/19 08:32 01/09/19 08:50 Zofran Injection IVPB 01/09/19 08:33 8 mg ONCE ONE Administration <Hugh Villanueva - Last Filed: 01/09/19 12:52> Medical Decision Making - Medical Decision Making 01/09/19 10:52 Patient is a morbidly obese 23-year-old female with history of cholelithiasis who presents with epigastric and right upper quadrant pain associated with several episodes of nonbloody nonbilious vomiting, nausea and loose watery stools. Differential diagnoses includes biliary colic versus pancreatitis versus AG. We'll administer IV fluids, antiemetics and H2 blockers. We'll administer IV fluids. Will obtain right upper quadrant ultrasound. Will obtain CBC/CMP/lipase/UA. Will reassess. 01/09/19 12:49 Patient is resting comfortably, symptom-free. Patient tolerates by mouth solids and liquids in the ER. Repeat abdominal exam shows no evidence of acute abdomen. There is no tenderness to palpation, there is no guarding or rebound. Bowel sounds are present in all 4 quadrants. CBC is within normal limit. CMP reveals mildly elevated AST and ALT. Right upper quadrant ultrasound shows fatty liver and cholelithiasis without evidence of cholecystitis. I discussed the findings with the patient. Advised her of need for weight loss and abstention from fatty foods. Will discharge with surgical and GI follow-up for further evaluation. <Hugh Villanueva - Last Filed: 01/09/19 12:52> *DC/Admit/Observation/Transfer - Attestations Scribe Attestion: 01/09/19 10:46 Documentation prepared by Lisa Oconnor, acting as medical front desk coordinator for Hugh Villanueva MD. <Lisa Oconnor - Last Filed: 01/09/19 12:01> - Attestations Physician Attestion: 01/09/19 10:52 The documentation was prepared by the scribe under my direct supervision. I have reviewed the documentation which correctly represents the findings, medical decision-making and critical action taken by me. <Hugh Villanueva - Last Filed: 01/09/19 12:52> Diagnosis at time of Disposition: Abdominal pain Qualifiers: Abdominal location: right upper quadrant Qualified Code(s): R10.11 - Right upper quadrant pain Nausea and vomiting Qualifiers: Vomiting type: unspecified Vomiting Intractability: non-intractable Qualified Code(s): R11.2 - Nausea with vomiting, unspecified Diarrhea Qualifiers: Diarrhea type: unspecified type Qualified Code(s): R19.7 - Diarrhea, unspecified - Discharge Dispostion Disposition: HOME Condition at time of disposition: Stable - Referrals Referrals: Rachid Norman MD [Staff Physician] - Jeremy Rivera DO [Staff Physician] - - Patient Instructions Printed Discharge Instructions: DI for Abdominal Pain-Adult, DI for Gallstones , DI for Nonalcoholic Fatty Liver Disease
== END 2019-01-09 13:04 | disposition home or self-care (01) ==
LOC: JER 06:02
PROC: 3E033GC Introduction of Other Therapeutic Substance into Peripheral Vein, Percutaneous Approach (ICD-10-PCS; principal; 2019-01-09)
PROC: 3E0337Z Introduction of Electrolytic and Water Balance Substance into Peripheral Vein, Percutaneous Approach (ICD-10-PCS; 2019-01-09)
DX: R10.11 Right upper quadrant pain (principal); R11.2 Nausea with vomiting, unspecified; R19.7 Diarrhea, unspecified
CPT/HCPCS: 36415; 76705-TC; 80053; 81003; 83690; 84703; 85025; 87086; 96361; 96365; 96375; 99283-25; J7030

== ENCOUNTER 2019-03-12 12:09 | Emergency (ER) | payer OTHER ==
[2019-03-12 12:25] VITALS: BP 113/75; PULSE 65; TEMP 98.5; BMI 44.8
--- NOTE | 2019-03-12 13:09 | PDOC ---
History of Present Illness - General Chief Complaint: Chest Pain Stated Complaint: CHEST PAIN/ DIZZINESS Time Seen by Provider: 03/12/19 13:08 - History of Present Illness Presenting Symptoms: Chest Pain Past History - Past Medical History Allergies/Adverse Reactions: Allergies Allergy/AdvReac Type Severity Reaction Status Date / Time milk Allergy Severe Difficulty Verified 03/12/19 12:25 Breathing No Known Drug Allergies Allergy Severe Difficulty Verified 03/12/19 12:25 Breathing peanut Allergy Severe Difficulty Verified 03/12/19 12:25 Breathing Home Medications: Ambulatory Orders Amox-Tr/K Cl [Augmentin - 875Mg Tablet] 1 tab PO BID #14 tablet 10/21/18 Ipratropium [place] 2 spray NS BID PRN #1 spray 10/21/18 Famotidine [Pepcid] 20 mg PO DAILY #14 tablet 03/12/19 Mag Hydrox/Al Hydrox/Simeth [Mylanta Suspension -] 30 ml PO Q6H #1 bottle Anemia: Yes Asthma: No Cancer: No Cardiac Disorders: Yes (bradycardia) COPD: No Diabetes: No HTN: Yes Seizures: No Thyroid Disease: No - Surgical History Abdominal Surgery: (Yes- ) - Reproductive History (#): 1 Para: 0 - Immunization History Immunization Up to Date: No - Suicide/Smoking/Psychosocial Hx Smoking Status: Yes Smoking History: Current every day smoker Have you smoked in the past 12 months: No Number of Cigarettes Smoked Daily: 20 Information on smoking cessation initiated: Yes 'Breaking Loose' booklet given: 09/14/16 Hx Alcohol Use: No Drug/Substance Use Hx: No Substance Use Type: None Hx Substance Use Treatment: No Cardiac Specific PMH - Complaint Specific PMHX Angina: No Pulmonary Embolus: No Review of Systems - Review of Systems Constitutional: No: Chills, Fever Respiratory: No: Cough, Shortness of Breath Cardiac (ROS): Yes: Chest Pain. No: Lightheadedness, Palpitations, Syncope ABD/GI: No: Blood Streaked Bowels, Constipated, Diarrhea, Nausea, Rectal Bleeding, Vomiting, Abdominal cramping, Tarry Stools : No: Dysuria, Flank Pain, Hematuria *Physical Exam - Vital Signs Last Vital Signs Temp Pulse Resp BP Pulse Ox 98.5 F 65 18 113/75 100 03/12/19 12:23 03/12/19 12:23 03/12/19 12:23 03/12/19 12:23 03/12/19 12:23 - Physical Exam General Appearance: Yes: Appropriately Dressed. No: Apparent Distress HEENT: positive: Normal Voice Neck: positive: Supple Respiratory/Chest: positive: Lungs Clear, Normal Breath Sounds. negative: Respiratory Distress Cardiovascular: positive: Regular Rate, S1, S2 Gastrointestinal/Abdominal: positive: Normal Bowel Sounds, Tender (minimal ttp to epigastrium, NT over RUQ and RLQ), Soft. negative: Distended, Guarding, Rebound Musculoskeletal: negative: CVA Tenderness Integumentary: positive: Dry, Warm Neurologic: positive: Fully Oriented, Alert, Normal Mood/Affect ED Treatment Course - ADDITIONAL ORDERS Additional order review: Laboratory Results 03/12/19 13:25 Urine HCG, Qual Negative - RADIOLOGY Radiology Studies Ordered: Category Date Time Status CHEST PA & LAT [RAD] Stat Radiology 03/12/19 13:17 Ordered - Medications Given in the ED: ED Medications Discontinued Medications Generic Name Dose Route Start Last Admin Trade Name Rocco PRN Reason Stop Dose Admin Al Hydroxide/Mg Hydroxide 30 ml 03/12/19 13:14 03/12/19 13:34 Mylanta Suspension - PO 03/12/19 13:15 30 ml ONCE ONE Administration Ranitidine HCl 150 mg 03/12/19 13:14 03/12/19 13:34 Zantac - PO 03/12/19 13:15 150 mg ONCE ONE Administration Medical Decision Making - Medical Decision Making 03/12/19 13:09 23 yo morbidly obesed F, here w/ chest pain. Pt reports burning epigastric and L-sided chest pain this a.m., worse with food. No excessive belching, nausea, vomiting, excessive belching, change in bowel movement, melena, BRBPR, f/c, SOB or diaphoresis. Patient states she's had similar pain in the past and in fact has had multiple ER visits, usually with negative workup. Was diagnosed with GERD on one visit. Not currently on medications. States she has never been evaluated by GI and has never been scoped. No obvious RF for DVT/PE See exam Recurrent CP Neg w/u in the past Possible GERD given hx, unlikely ACS and PERCs out -ekg done at triage and neg as reviewed w/ ED attg -GI cocktail in ED and reassess 03/12/19 14:01 Pt s/p CXR. States that she has to leave to hot die picker her son and requests that we call her with chest x-ray results. Will discharge at this time with prescriptions and GI follow-up *DC/Admit/Observation/Transfer Diagnosis at time of Disposition: Chest pain Qualifiers: Chest pain type: unspecified Qualified Code(s): R07.9 - Chest pain, unspecified - Discharge Dispostion Disposition: HOME Condition at time of disposition: Improved - Prescriptions Prescriptions: Famotidine [Pepcid] 20 mg PO DAILY #14 tablet Mag Hydrox/Al Hydrox/Simeth [Mylanta Suspension -] 30 ml PO Q6H #1 bottle - Referrals Referrals: Ari Patel MD [Staff Physician] - - Patient Instructions Printed Discharge Instructions: Gastritis Additional Instructions: Your symptoms may be gastritis or GERD, but you will need further evaluation by [facility]. Please call Dr. Patel of GI for an appointment Take medications as directed We will call you with CXR results as discussed - Post Discharge Activity
[2019-03-12] MEDS ORDERED: RANITIDINE HCL 150 MG TABLET (FP) PO ONE (13:14)
[2019-03-12] MEDS ORDERED: MAG HYDROX/AL HYDROX/SIMETH -MYLANTA- ORAL SUSPENSION PO ONE (13:14)
--- NOTE | 2019-03-12 13:29 | EKG ---
Test Reason : Blood Pressure : / mmHG Vent. Rate : 063 BPM Atrial Rate : 063 BPM P-R Int : 172 ms QRS Dur : 082 ms QT Int : 416 ms P-R-T Axes : 000 016 -13 degrees QTc Int : 425 ms NORMAL SINUS RHYTHM WITH SINUS ARRHYTHMIA NORMAL ECG WHEN COMPARED WITH ECG OF 16-OCT-2018 20:40, NO SIGNIFICANT CHANGE WAS FOUND Confirmed by MD DOMINIC, EDUARDO ([id number]) on 03/12/2019 1:29:41 PM Referred By: Confirmed By:EDUARDO ALFARO MD
[2019-03-12] MEDS ORDERED: RANITIDINE HCL 150 MG TABLET (FP) ONE (13:31)
[2019-03-12] MEDS ORDERED: MAG HYDROX/AL HYDROX/SIMETH 30 ML UNIT-DOSE CUP ONE (13:31)
== END 2019-03-12 15:07 | disposition home or self-care (01) ==
LOC: JER 12:09
DX: R07.9 Chest pain, unspecified (principal)
CPT/HCPCS: 71046-TC-FY; 84703; 93005; 93010; 99282-25

== ENCOUNTER 2019-05-05 21:55 | Emergency (ER) | payer OTHER ==
[2019-05-05 22:03] VITALS: BP 119/70; PULSE 83; TEMP 99; BMI 44.2
--- NOTE | 2019-05-05 22:32 | PDOC ---
History of Present Illness - General Chief Complaint: Urinary Problem Stated Complaint: FEVER Time Seen by Provider: 05/05/19 22:24 Past History - Past Medical History Allergies/Adverse Reactions: Allergies Allergy/AdvReac Type Severity Reaction Status Date / Time milk Allergy Severe Difficulty Verified 03/12/19 12:25 Breathing No Known Drug Allergies Allergy Severe Difficulty Verified 03/12/19 12:25 Breathing peanut Allergy Severe Difficulty Verified 03/12/19 12:25 Breathing Home Medications: Ambulatory Orders Amox-Tr/K Cl [Augmentin - 875Mg Tablet] 1 tab PO BID #14 tablet 10/21/18 Ipratropium [place] 2 spray NS BID PRN #1 spray 10/21/18 Famotidine [Pepcid] 20 mg PO DAILY #14 tablet 03/12/19 Mag Hydrox/Al Hydrox/Simeth [Mylanta Suspension -] 30 ml PO Q6H #1 bottle Anemia: Yes Asthma: No Cancer: No Cardiac Disorders: Yes (bradycardia) COPD: No Diabetes: No HTN: Yes Seizures: No Thyroid Disease: No - Surgical History Abdominal Surgery: (Yes- ) - Reproductive History (#): 1 Para: 0 - Immunization History Immunization Up to Date: No - Suicide/Smoking/Psychosocial Hx Smoking Status: Yes Smoking History: Never smoked Have you smoked in the past 12 months: No Number of Cigarettes Smoked Daily: 20 Information on smoking cessation initiated: No 'Breaking Loose' booklet given: 09/14/16 Hx Alcohol Use: No Drug/Substance Use Hx: No Substance Use Type: None Hx Substance Use Treatment: No *Physical Exam - Vital Signs Last Vital Signs Temp Pulse Resp BP Pulse Ox 99.0 F 83 20 119/70 99 05/05/19 22:02 05/05/19 22:02 05/05/19 22:02 05/05/19 22:02 05/05/19 22:02
[2019-05-05 22:55] LABS: EPI CELLS 4.7 /HPF (0-5/HPF); HYALINE CASTS 7 /lpf (0-8); PH,URINE 6.5 (5.0-8.0); URINE APPEARANCE TURBID; URINE BACTERIA >9000 /hpf (NEGATIVE); URINE BILIRUBIN NEGATIVE (NEGATIVE); URINE COLOR YELLOW; URINE GLUCOSE (UA) NEGATIVE (NEGATIVE); URINE KETONE NEGATIVE (NEGATIVE); URINE LEUK ESTERASE 3+ (NEGATIVE); URINE NITRITE POSITIVE (NEGATIVE); URINE PROTEIN 1+ (NEGATIVE); URINE RBC 37 /hpf (0-4); URINE UROBILINOGEN >=8.0 E.U./dl mg/dL (0.2-1.0); URINE WBC 827 /hpf (0-5)
--- NOTE | 2019-05-05 23:06 | PDOC ---
Documentation entered by Atiya Polo SCRIBE, acting as scribe for Jordana Adams MD. Jordana Adams MD: This documentation has been prepared by the Christ vieyra Xhesika, SCRIBE, under my direction and personally reviewed by me in its entirety. I confirm that the documentation accurately reflects all work, treatment, procedures, and medical decision making performed by me. History of Present Illness - General Chief Complaint: Urinary Problem Stated Complaint: FEVER Time Seen by Provider: 05/05/19 22:24 History Source: Patient Exam Limitations: No Limitations - History of Present Illness Initial Comments: 05/05/19 22:44 The patient is a 23 year old female with a significant medical history of Anemia , HTN, and bradycardia who present to the ED with several days of dysuria associated with increased frequency. The patient denies abdominal tenderness. The patient denies chest pain, shortness of breath, headache and dizziness. Denies fever, chills, nausea, vomit, diarrhea and constipation. Denies urgency and hematuria. Allergies: NKA, NDKA Past surgical history: Past History - Past Medical History Allergies/Adverse Reactions: Allergies Allergy/AdvReac Type Severity Reaction Status Date / Time milk Allergy Severe Difficulty Verified 03/12/19 12:25 Breathing No Known Drug Allergies Allergy Severe Difficulty Verified 03/12/19 12:25 Breathing peanut Allergy Severe Difficulty Verified 03/12/19 12:25 Breathing Home Medications: Ambulatory Orders Amox-Tr/K Cl [Augmentin - 875Mg Tablet] 1 tab PO BID #14 tablet 10/21/18 Ipratropium [place] 2 spray NS BID PRN #1 spray 10/21/18 Famotidine [Pepcid] 20 mg PO DAILY #14 tablet 03/12/19 Mag Hydrox/Al Hydrox/Simeth [Mylanta Suspension -] 30 ml PO Q6H #1 bottle Anemia: Yes Asthma: No Cancer: No Cardiac Disorders: Yes (bradycardia) COPD: No Diabetes: No HTN: Yes Seizures: No Thyroid Disease: No - Surgical History Abdominal Surgery: (Yes- ) - Reproductive History (#): 1 Para: 0 - Immunization History Immunization Up to Date: No - Suicide/Smoking/Psychosocial Hx Smoking Status: Yes Smoking History: Never smoked Have you smoked in the past 12 months: No Number of Cigarettes Smoked Daily: 20 Information on smoking cessation initiated: No 'Breaking Loose' booklet given: 09/14/16 Hx Alcohol Use: No Drug/Substance Use Hx: No Substance Use Type: None Hx Substance Use Treatment: No Review of Systems - Review of Systems Able to Perform ROS?: Yes Comments:: 05/05/19 22:47 GENERAL/CONSTITUTIONAL: No fever or chills. No weakness. HEAD, EYES, EARS, NOSE AND THROAT: No change in vision. No ear pain or discharge. No sore throat. CARDIOVASCULAR: No chest pain or shortness of breath. RESPIRATORY: No cough, wheezing, or hemoptysis. GASTROINTESTINAL: No nausea, vomiting, diarrhea or constipation. GENITOURINARY: (+) dysuria. (+) frequency. MUSCULOSKELETAL: No joint or muscle swelling or pain. No neck or back pain. SKIN: No rash NEUROLOGIC: No headache, vertigo, loss of consciousness, or change in strength/ sensation. ENDOCRINE: No increased thirst. No abnormal weight change. HEMATOLOGIC/LYMPHATIC: No anemia, easy bleeding, or history of blood clots. ALLERGIC/IMMUNOLOGIC: No hives or skin allergy. *Physical Exam - Vital Signs Last Vital Signs Temp Pulse Resp BP Pulse Ox 99.0 F 83 20 119/70 99 05/05/19 22:02 05/05/19 22:02 05/05/19 22:02 05/05/19 22:02 05/05/19 22:02 - Physical Exam Comments: 05/05/19 22:47 GENERAL: (+) obese. Awake, alert, and fully oriented, in no acute distress HEAD: No signs of trauma EYES: PERRLA, EOMI, sclera anicteric, conjunctiva clear ENT: Auricles normal inspection, hearing grossly normal, nares patent, oropharynx clear without exudates. Moist mucosa NECK: Normal ROM, supple, no lymphadenopathy, JVD, or masses LUNGS: Breath sounds equal, clear to auscultation bilaterally. No wheezes, and no crackles HEART: Regular rate and rhythm, normal S1 and S2, no murmurs, rubs or gallops ABDOMEN: Soft, nontender, normoactive bowel sounds. No focal abdominal tenderness. No guarding, no rebound. No masses EXTREMITIES: Normal range of motion, no edema. No clubbing or cyanosis. No cords, erythema, or tenderness NEUROLOGICAL: Cranial nerves II through XII grossly intact. Normal speech, normal gait SKIN: Warm, Dry, normal turgor, no rashes or lesions noted. ED Treatment Course - ADDITIONAL ORDERS Additional order review: Laboratory Results 05/05/19 22:35 Urine Color Yellow Urine Appearance Turbid Urine pH 6.5 Ur Specific [place] 1.018 Urine Protein 1+ H Urine Glucose (UA) Negative Urine Ketones Negative Urine Blood 1+ H Urine Nitrite Positive H Urine Bilirubin Negative Urine Urobilinogen >=8.0 e.u./dl H Ur Leukocyte Esterase 3+ H Urine WBC (Auto) 827 Urine RBC (Auto) 37 Urine Casts (Auto) 7 U Epithel Cells (Auto) 4.7 Urine Bacteria (Auto) >9000 Medical Decision Making - Medical Decision Making 05/05/19 23:01 23 yo female with c/o dysuria UA shoes multiple wbc and nitrite positive will start on antibiotics imp UTI *DC/Admit/Observation/Transfer Diagnosis at time of Disposition: UTI (urinary tract infection) Qualifiers: Urinary tract infection type: acute cystitis Hematuria presence: without hematuria Qualified Code(s): N30.00 - Acute cystitis without hematuria - Discharge Dispostion Disposition: HOME Condition at time of disposition: Good - Referrals - Patient Instructions Printed Discharge Instructions: DI for Urinary Tract Infection (UTI) Additional Instructions: please potato picker your medications at your pharmacy and take then as directed Return for any worsening symptoms Take tylenol or motrin for pain or fever - Post Discharge Activity
[2019-05-05] MEDS ORDERED: SULFAMETHOXAZOLE/TRIMETHOPRIM 800MG/160MG D.S. TABLET PO ONE (23:23)
[2019-05-05] MEDS ORDERED: PHENAZOPYRIDINE HCL 100 MG TABLET (FP) PO ONE (23:24)
[2019-05-05] MEDS ORDERED: SULFAMETHOXAZOLE/TRIMETHOPRIM 800MG/160MG D.S. TABLET ONE (23:25)
[2019-05-05] MEDS ORDERED: PHENAZOPYRIDINE HCL 100 MG TABLET (FP) ONE (23:25)
== END 2019-05-05 23:34 | disposition home or self-care (01) ==
LOC: JERFT 21:55 → JER 21:55
DX: N30.00 Acute cystitis without hematuria (principal); I10 Essential (primary) hypertension; D64.9 Anemia, unspecified
CPT/HCPCS: 81003; 84703; 99281-25

== ENCOUNTER 2019-06-29 23:14 | Emergency (ER) | payer OTHER ==
[2019-06-30 00:19] VITALS: BP 117/60; PULSE 65; TEMP 98.5; BMI 46.3
[2019-06-30 01:29] LABS: BASO % 0.4 % (0-2.0); HEMATOCRIT 43.3 % (32.4-45.2); LYMPH % 35.9 % (8-40); MCH 26.3 pg (25.7-33.7); MCHC 32.4 g/dl (32.0-36.0); MEAN CELL VOLUME 81.2 fl (80-96); MEAN PLT VOLUME 11.2 fl (7.5-11.1); MONO % 3.9 % (3.8-10.2); NEUT % 57.8 % (42.8-82.8); PLATELET COUNT 167 K/MM3 (134-434); RBC 5.33 M/mm3 (3.60-5.2); RDW 16.2 % (11.6-15.6); WHITE BLOOD COUNT 8.7 K/mm3 (4.0-10.0)
--- NOTE | 2019-06-30 01:35 | PDOC ---
Documentation entered by Sis Vazquez SCRIBE, acting as scribe for Brooke Davenport MD. Brooke Davenport MD: This documentation has been prepared by the George vieyra Adrianna, SCRIBE, under my direction and personally reviewed by me in its entirety. I confirm that the documentation accurately reflects all work, treatment, procedures, and medical decision making performed by me. History of Present Illness - General Chief Complaint: Vaginal Bleeding Stated Complaint: VAGINAL BLEEDING/2 WKS Time Seen by Provider: 06/30/19 00:42 - History of Present Illness Initial Comments: The patient is a 23 year old female (), with a significant PMH of anemia, HTN, bradycardia, and gallstones, who presents to the ED for evaluation of vaginal bleeding for 3 days. Patient notes she has taken two at home tests which were both positive 2 weeks ago. 3 days ago she began passing clots. She reports associated intermittent lower abdominal cramping. Her LMP was . Patient notes she has an scheduled for next week. Denies fever, chills, chest pain, SOB, nausea, vomit, diarrhea, urinary symptoms , constipation. Allergies: Milk. peanut Social History: Reports tobacco use. Denies any alcohol or drug use. Surgical History: x2 PCP: NOS Past History - Past Medical History Allergies/Adverse Reactions: Allergies Allergy/AdvReac Type Severity Reaction Status Date / Time milk Allergy Severe Difficulty Verified 06/30/19 00:19 Breathing No Known Drug Allergies Allergy Severe Difficulty Verified 06/30/19 00:19 Breathing peanut Allergy Severe Difficulty Verified 06/30/19 00:19 Breathing Home Medications: Ambulatory Orders Amox-Tr/K Cl [Augmentin - 875Mg Tablet] 1 tab PO BID #14 tablet 10/21/18 Ipratropium [place] 2 spray NS BID PRN #1 spray 10/21/18 Famotidine [Pepcid] 20 mg PO DAILY #14 tablet 03/12/19 Mag Hydrox/Al Hydrox/Simeth [Mylanta Suspension -] 30 ml PO Q6H #1 bottle Phenazopyridine HCl [Pyridium -] 200 mg PO ONCE #2 tablet MDD 1 tab 05/05/19 Sulfamethoxazole/Trimethoprim [Bactrim Ds -] 1 tab PO BID #20 tablet 05/05/19 Anemia: Yes Asthma: No Cancer: No Cardiac Disorders: Yes (bradycardia) COPD: No Diabetes: No HTN: Yes Seizures: No Thyroid Disease: No - Surgical History Abdominal Surgery: Yes (Yes- ) - Reproductive History (#): 1 Para: 0 - Immunization History Immunization Up to Date: No - Suicide/Smoking/Psychosocial Hx Smoking Status: Yes Smoking History: Unknown if ever smoked Have you smoked in the past 12 months: No Number of Cigarettes Smoked Daily: 20 'Breaking Loose' booklet given: 09/14/16 Hx Alcohol Use: No Drug/Substance Use Hx: No Substance Use Type: None Hx Substance Use Treatment: No Review of Systems - Review of Systems Comments:: GENERAL/CONSTITUTIONAL: No fever or chills. No weakness. HEAD, EYES, EARS, NOSE AND THROAT: No change in vision. No ear pain or discharge. No sore throat. CARDIOVASCULAR: No chest pain or shortness of breath. RESPIRATORY: No cough, wheezing, or hemoptysis. GASTROINTESTINAL: No nausea, vomiting, diarrhea or constipation. GENITOURINARY: No dysuria, frequency, or change in urination. PELVIC: +Lower abdominal cramping. +Vaginal bleeding, passing clots daily. MUSCULOSKELETAL: No joint or muscle swelling or pain. No neck or back pain. SKIN: No rash NEUROLOGIC: No headache, vertigo, loss of consciousness, or change in strength/ sensation. ENDOCRINE: No increased thirst. No abnormal weight change. HEMATOLOGIC/LYMPHATIC: No anemia, easy bleeding, or history of blood clots. ALLERGIC/IMMUNOLOGIC: No hives or skin allergy. *Physical Exam - Vital Signs Last Vital Signs Temp Pulse Resp BP Pulse Ox 98.5 F 65 18 117/60 100 06/30/19 00:06/30/19 00:06/30/19 00:06/30/19 00:06/30/19 00:17 - Physical Exam Comments: CONSTITUTIONAL: Well-appearing; well-nourished; in no apparent distress HEAD: Normocephalic; atraumatic EYES: PERRL; EOM intact ENMT: External appears normal; normal oropharynx NECK: Supple; non-tender; no cervical lymphadenopathy CARD: Normal S1, S2; no murmurs, rubs, or gallops RESP: Normal chest excursion with respiration; breath sounds clear and equal bilaterally; no wheezes, rhonchi, or rales ABD: Soft, non-distended; non-tender; no palpable organomegaly, no palpable hernias EXT: Normal ROM in all four extremities; non-tender to palpation; distal pulses intact SKIN: Warm, dry, no rash NEURO: No focal neurological deficiencies. ED Treatment Course - LABORATORY CBC & Chemistry Diagram: 06/30/19 01:00 06/30/19 01:00 - ADDITIONAL ORDERS Additional order review: 06/30/19 01:00 RBC 5.33 H MCV 81.2 MCHC 32.4 RDW 16.2 H MPV 11.2 H Neutrophils % 57.8 Lymphocytes % 35.9 D Monocytes % 3.9 Eosinophils % 2.0 Basophils % 0.4 Medical Decision Making - Medical Decision Making 06/30/19 01:35 We will check if pt really is with a quantitative HCG 06/30/19 01:36 Pt has normal Hb/HCT 06/30/19 01:59 Bhcg is 30.5; pt can return to ER for repeat blood test in 2 days *DC/Admit/Observation/Transfer Diagnosis at time of Disposition: Early stage of - Discharge Dispostion Disposition: HOME Condition at time of disposition: Stable Decision to Admit order: No - Referrals Referrals: ON STAFF,NOT [Primary Care Provider] - - Patient Instructions Printed Discharge Instructions: DI for Threatened - Post Discharge Activity
[2019-06-30 01:54] LABS: BILIRUBIN,TOTAL 0.6 mg/dL (0.2-1); BLOOD UREA NITROGEN 18.6 mg/dL (7-18); CALCIUM 9.3 mg/dL (8.5-10.1); CREATININE 0.9 mg/dL (0.55-1.3); POTASSIUM 3.9 mmol/L (3.5-5.1)
== END 2019-06-30 02:05 | disposition home or self-care (01) ==
LOC: SUPCPDRO 23:14 → JER 23:14
DX: O26.891 Other specified pregnancy related conditions, first trimester (principal); O20.8 Other hemorrhage in early pregnancy; Z3A.01 Less than 8 weeks gestation of pregnancy
CPT/HCPCS: 36415; 80053; 84702; 85025; 86850; 86900; 86901; 99282-25

== ENCOUNTER 2019-07-09 21:05 | Emergency (ER) | payer OTHER ==
--- NOTE | 2019-07-09 21:26 | PDOC ---
Rapid Medical Evaluation Time Seen by Provider: 07/09/19 21:24 Medical Evaluation: Allergies Allergy/AdvReac Type Severity Reaction Status Date / Time milk Allergy Severe Difficulty Verified 06/30/19 00:19 Breathing No Known Drug Allergies Allergy Severe Difficulty Verified 06/30/19 00:19 Breathing peanut Allergy Severe Difficulty Verified 06/30/19 00:19 Breathing I have performed a brief in-person evaluation of this patient. The patient presents with a chief complaint of: c/o cold sxs from today; + congestion, throat pain; denies cough, vomiting, abd pain, vaginal bleeding Pertinent physical exam findings: In nad, oropharynx clear, no exudates noted, lungs clear I have ordered the following: nothing The patient will proceed to the ED for further evaluation. 07/09/19 21:24
[2019-07-09 21:28] VITALS: BP 149/76; PULSE 78; TEMP 98.5; BMI 44.8
--- NOTE | 2019-07-09 21:55 | PDOC ---
History of Present Illness - General Chief Complaint: Cold Symptoms Stated Complaint: Cold Symptoms Time Seen by Provider: 07/09/19 21:24 - History of Present Illness Initial Comments: 07/09/19 21:50 23 y/o F w/o CM presents for evaluation nasal congestion and sore throat x1 day without systemic symptoms. Past History - Past Medical History Allergies/Adverse Reactions: Allergies Allergy/AdvReac Type Severity Reaction Status Date / Time milk Allergy Severe Difficulty Verified 07/09/19 21:28 Breathing No Known Drug Allergies Allergy Severe Difficulty Verified 07/09/19 21:28 Breathing peanut Allergy Severe Difficulty Verified 07/09/19 21:28 Breathing Home Medications: Ambulatory Orders Amox-Tr/K Cl [Augmentin - 875Mg Tablet] 1 tab PO BID #14 tablet 10/21/18 Ipratropium [place] 2 spray NS BID PRN #1 spray 10/21/18 Famotidine [Pepcid] 20 mg PO DAILY #14 tablet 03/12/19 Mag Hydrox/Al Hydrox/Simeth [Mylanta Suspension -] 30 ml PO Q6H #1 bottle Phenazopyridine HCl [Pyridium -] 200 mg PO ONCE #2 tablet MDD 1 tab 05/05/19 Sulfamethoxazole/Trimethoprim [Bactrim Ds -] 1 tab PO BID #20 tablet 05/05/19 Anemia: Yes Asthma: No Cancer: No Cardiac Disorders: Yes (bradycardia) COPD: No Diabetes: No HTN: Yes Seizures: No Thyroid Disease: No - Surgical History Abdominal Surgery: Yes (Yes- ) - Reproductive History (#): 1 Para: 0 - Immunization History Immunization Up to Date: No - Suicide/Smoking/Psychosocial Hx Smoking Status: Yes Smoking History: Current every day smoker Have you smoked in the past 12 months: No Number of Cigarettes Smoked Daily: 20 Information on smoking cessation initiated: No 'Breaking Loose' booklet given: 09/14/16 Hx Alcohol Use: No Drug/Substance Use Hx: No Substance Use Type: None Hx Substance Use Treatment: No Review of Systems - Review of Systems Constitutional: No: Chills, Fever, Night Sweats HEENTM: Yes: Nose Congestion, Throat Pain *Physical Exam - Vital Signs Last Vital Signs Temp Pulse Resp BP Pulse Ox 98.5 F 78 18 149/76 99 07/09/19 21:24 07/09/19 21:24 07/09/19 21:24 07/09/19 21:24 07/09/19 21:24 - Physical Exam General Appearance: Yes: Appropriately Dressed, Obese. No: Apparent Distress HEENT: positive: EOMI, Normal ENT Inspection, Normal Voice, Symmetrical, TMs Normal, Pharynx Normal Neck: positive: Supple Respiratory/Chest: positive: Lungs Clear, Normal Breath Sounds. 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 Follow up with your primary care physician in 1-2 days for further evaluation and treatment options. Warm salt water gargles for sore throat. - Post Discharge Activity
== END 2019-07-09 22:26 | disposition home or self-care (01) ==
LOC: JERFT 21:05
DX: J06.9 Acute upper respiratory infection, unspecified (principal); B97.89 Other viral agents as the cause of diseases classified elsewhere; I10 Essential (primary) hypertension; D64.9 Anemia, unspecified; R00.1 Bradycardia, unspecified; F17.210 Nicotine dependence, cigarettes, uncomplicated
CPT/HCPCS: 99281-25

== ENCOUNTER 2019-09-18 08:53 | Emergency (ER) | payer OTHER ==
[2019-09-18 09:05] VITALS: BP 119/61; PULSE 66; TEMP 99; BMI 47.8
[2019-09-18] MEDS ORDERED: IBUPROFEN 600 MG TABLET (FP) PO ONE ×2 (10:11→10:50)
--- NOTE | 2019-09-18 10:12 | PDOC ---
History of Present Illness - General Chief Complaint: Chest Pain Stated Complaint: CHEST PAIN Time Seen by Provider: 09/18/19 09:57 History Source: Patient Exam Limitations: No Limitations - History of Present Illness Initial Comments: Yary Cazares is a 23 yo obese F w a pmh of Anemia, HTN, bradycardia, and gallstones who presents to the [facility] with left sided chest pain which began yesterday afternoon at 4 pm. The patient states her pain is 4/10 in intensity, feels like a sharp sensation, has not gotten worse since last night, and is associated with bilateral hand numbness and tingling. She states her pain does not radiate to her neck, back or arms, is not worsened with movement of her arms and is not worsened with palpation. She denies any nausea, vomiting , diaphoresis, or worsening with exertion. She states the pain comes on at rest and is not worse after eating food. Denies recent fevers, chills, infections, cough, SOB, travel, surgeries, cancer , personal or family hx of blood clots, hormone usage, dysuria, frequency, or urgency. LMP: Started yesterday PCP: None Allergies: Milk, peanuts, NKDA Past surgical history: Social Hx: Denies smoking, drinking, or other substance usage. Past History - Past Medical History Allergies/Adverse Reactions: Allergies Allergy/AdvReac Type Severity Reaction Status Date / Time milk Allergy Severe Difficulty Verified 09/18/19 09:05 Breathing No Known Drug Allergies Allergy Severe Difficulty Verified 09/18/19 09:05 Breathing peanut Allergy Severe Difficulty Verified 09/18/19 09:05 Breathing Home Medications: Ambulatory Orders Amox-Tr/K Cl [Augmentin - 875Mg Tablet] 1 tab PO BID #14 tablet 10/21/18 Ipratropium [place] 2 spray NS BID PRN #1 spray 10/21/18 Famotidine [Pepcid] 20 mg PO DAILY #14 tablet 03/12/19 Mag Hydrox/Al Hydrox/Simeth [Mylanta Suspension -] 30 ml PO Q6H #1 bottle Phenazopyridine HCl [Pyridium -] 200 mg PO ONCE #2 tablet MDD 1 tab 05/05/19 Sulfamethoxazole/Trimethoprim [Bactrim Ds -] 1 tab PO BID #20 tablet 05/05/19 Anemia: Yes Asthma: No Cancer: No Cardiac Disorders: Yes (bradycardia) COPD: No Diabetes: No HTN: Yes Seizures: No Thyroid Disease: No - Surgical History Abdominal Surgery: Yes (Yes- ) - Reproductive History (#): 1 Para: 0 - Immunization History Immunization Up to Date: No - Psycho Social/Smoking Cessation Hx Smoking Status: Yes Smoking History: Never smoked Have you smoked in the past 12 months: No Number of Cigarettes Smoked Daily: 20 Information on smoking cessation initiated: No 'Breaking Loose' booklet given: 09/14/16 Hx Alcohol Use: No Drug/Substance Use Hx: No Substance Use Type: None Hx Substance Use Treatment: No Review of Systems - Review of Systems Able to Perform ROS?: Yes Comments:: CONSTITUTIONAL: Absent: fever, no chills, no fatigue EYES: Absent: visual changes ENT: Absent: ear pain, no sore throat CARDIOVASCULAR: Present: Chest pain Absent: no palpitations RESPIRATORY: Absent: cough, no SOB GI: Absent: abdominal pain, no nausea, no vomiting, no constipation, no diarrhea GENITOURINARY: Absent: dysuria, no frequency, no hematuria MUSKULOSKELETAL: Absent: back pain, no arthralgia, no myalgia SKIN: Absent: rash NEURO: Present: Paresthesia Absent: headache *Physical Exam - Vital Signs Last Vital Signs Temp Pulse Resp BP Pulse Ox 99 F 66 19 119/61 98 09/18/19 09:02 09/18/19 09:02 09/18/19 09:02 09/18/19 09:02 09/18/19 09:02 - Physical Exam Comments: GENERAL: Well-appearing, well-nourished. No apparent distress. HEENT: Normocephalic, atraumatic. PERRL, EOM intact. CARDIOVASCULAR: Normal S1, S2. Regular rate and rhythm. PULMONARY: No evidence of respiratory distress. Lungs clear to auscultation bilaterally. No wheezing, rales or rhonchi. ABDOMEN: Soft, non-distended, non-tender. EXTREMITIES: Normal ROM in all four extremities. No gross deformities. SKIN: Warm, dry. No rash NEUROLOGICAL: No focal neurological deficits. ED Treatment Course - LABORATORY CBC & Chemistry Diagram: 09/18/19 10:45 09/18/19 10:45 - RADIOLOGY Radiology Studies Ordered: Category Date Time Status CHEST PA & LAT [RAD] Stat Radiology 09/18/19 10:10 Ordered Medical Decision Making - Medical Decision Making Yary Cazares is a 23 yo obese F w a pmh of Anemia, HTN, bradycardia, and gallstones who presents to the [facility] with left sided chest pain which began yesterday afternoon at 4 pm. The patient states her pain is 4/10 in intensity, feels like a sharp sensation, has not gotten worse since last night, and is associated with bilateral hand numbness and tingling. She states her pain does not radiate to her neck, back or arms, is not worsened with movement of her arms and is not worsened with palpation. She denies any nausea, vomiting , diaphoresis, or worsening with exertion. She states the pain comes on at rest and is not worse after eating food. Vital Signs Temp Pulse Resp BP Pulse Ox 99 F 66 19 119/61 98 09/18/19 09:02 09/18/19 09:02 09/18/19 09:02 09/18/19 09:02 09/18/19 09:02 DDx IBNLT: ACS/PA, anemia, electrolyte/metabolic disturbance, PE, pneumothorax/ PNA, Plan: cbc, cmp, hcg, trop, CXR, EKG, analgesia, re-assess Labs: Mildly hypermagnesemic HCG: Negative CXR: Unremarkable with no acute pathology EKG: NS rate of 65, narrow complexes, normal axis, no hypertrophy, nk ST elevations or depressions, There are TWI's in III, aVF, and V3 which were all present and unchanged since february 2019, no Q waves, QTc 403, HI 174 Re-assessment: patient feels well and requests to be discharged Disposition: Home with PC and cardiac FU Discharge - Discharge Information Problems reviewed: Yes Clinical Impression/Diagnosis: Chest pain Qualifiers: Chest pain type: unspecified Qualified Code(s): R07.9 - Chest pain, unspecified Condition: Improved Disposition: HOME - Admission No - Follow up/Referral Referrals: [facility] [Provider Group] Nicoel Her MD [Staff Physician] - Wilberto Godwin MD [Staff Physician] - - Patient Discharge Instructions Patient Printed Discharge Instructions: Depression, DI for Atypical Chest Pain Additional Instructions: you can take motrin 600 mg every 8 hrs as needed for your pain. return for any feelings of concern, shortness of breath, extreme sadness thoughts of self harm or any concerns. you should follow up with a regular doctor. see referal for the [facility]. ( in instructions under referrals) call to be seen within one week. yo can also follow up with a psychiatrist DR Jorge, see referral information. if they do not accept your insurance you can call your insurance company for a list of providers, and also discuss with your doctor at your follow up appointment. your labs today and your chest xray are negative for any abnormalities. Print Language: LITHUANIAN - Post Discharge Activity
--- NOTE | 2019-09-18 10:37 | PDOC ---
Attending Attestation - Resident Resident Name: Duane Hernandez - ED Attending Attestation I have performed the following: I have examined & evaluated the patient, The case was reviewed & discussed with the resident, I agree w/resident's findings & plan, Exceptions are as noted - HPI HPI: 09/18/19 10:34 23 yo F here withh c/o chest pain and paresthesia. Patient states she recently suffered some relationship stress and is recently single was crying yesterday when the chest pain began. Says she is been going trying often since then denies feelings of suicidality no history of previous depression or medications for depression. States she lives at home with HER-2 children who are 2 and 3- year-olds states she feels safe in her home denies any but he trying to hurt her or her children states her children are currently with her sister while she is here in the ED for evaluation. States that she was crying when the chest pain began denies feeling short of breath no nausea no vomiting no rash no ingestions. Since then she still has persistent left-sided chest pain and is tearful during my questioning. no h/o pe no recent travel. no mod factors. pain is not pleuritic. no cough no f/c no leg swelling. 09/18/19 10:50 - Physicial Exam PE: 09/18/19 10:34 awake alert lungs clear bilat heart rrr no mrg abd soft nt nd ext wwp no edema. no calf tenderness. pulses symmetric bilat. nueor alert oriented x 2. 5/5 all four ext. sensation intact. mild left sided chest wall tenderness. 09/18/19 10:52 - Medical Decision Making 09/18/19 10:35 23 yo F with chest pain. differential infection costochondritis, no risk factors for PE, no risk factor for acs, very unlikley due to pt age. plan labs ekg trop cxr. ekg unchanged from prior ekg. pt under much stress, tearful. screened for suicidality. denies h/o suicide, no h/o depression. has sister for support and children whom she cares for. sleeping is decreased but states related to stress. no h/o prior suicde attempt. no substance abuse. 09/18/19 10:53 09/18/19 11:37 pt labs unremarkable. cxr negative. dc to home. given number for followup with clinic [facility], and referral for dr garcia. Heart Score/ECG Review #1 General ECG Interpretation: Sinus Rhythm, Normal Intervals, No acute ischemic changes Compared to previous ECG there are: No significant change (comparison 03/12/19 . 65 bpm, TWI III, AVF, no channge)
[2019-09-18 11:06] LABS: BASO % 0.8 % (0-2.0); EOS % 3.5 % (0-4.5); HEMOGLOBIN 13.2 GM/dL (10.7-15.3); LYMPH % 29.2 % (8-40); MCH 26.4 pg (25.7-33.7); MCHC 32.9 g/dl (32.0-36.0); MEAN CELL VOLUME 80.3 fl (80-96); MEAN PLT VOLUME 10.8 fl (7.5-11.1); MONO % 4.2 % (3.8-10.2); NEUT % 62.3 % (42.8-82.8); PLATELET COUNT 141 K/MM3 (134-434); RBC 4.98 M/mm3 (3.60-5.2); RDW 15.2 % (11.6-15.6); WHITE BLOOD COUNT 5.9 K/mm3 (4.0-10.0)
[2019-09-18 11:36] LABS: ALBUMIN 3.5 g/dl (3.4-5.0); ALK PHOS 104 U/L (45-117); ANION GAP 4 MMOL/L (8-16); BILIRUBIN,TOTAL 0.4 mg/dL (0.2-1); BLOOD UREA NITROGEN 10.4 mg/dL (7-18); CALCIUM 8.7 mg/dL (8.5-10.1); CHLORIDE 111 mmol/L (98-107); CO2 26 mmol/L (21-32); CREATININE 0.7 mg/dL (0.55-1.3); GLUCOSE,RANDOM 105 mg/dL (74-106); MAGNESIUM 2.5 mg/dL (1.8-2.4); POTASSIUM 4.3 mmol/L (3.5-5.1); SGOT/AST 15 U/L (15-37); SGPT/ALT 30 U/L (13-61); SODIUM 142 mmol/L (136-145); TOT PROT 7.3 g/dl (6.4-8.2)
--- NOTE | 2019-09-18 15:57 | EKG ---
Test Reason : Blood Pressure : / mmHG Vent. Rate : 065 BPM Atrial Rate : 065 BPM P-R Int : 174 ms QRS Dur : 080 ms QT Int : 388 ms P-R-T Axes : 035 017 -18 degrees QTc Int : 403 ms NORMAL SINUS RHYTHM NORMAL ECG WHEN COMPARED WITH ECG OF 12-MAR-2019 12:21, NO SIGNIFICANT CHANGE WAS FOUND Confirmed by PADMA VEGA MD ([id number]) on 09/18/2019 3:55:59 PM Referred By: Confirmed By:PADMA VEGA MD
== END 2019-09-18 12:00 | disposition home or self-care (01) ==
LOC: JER 08:53
DX: R07.9 Chest pain, unspecified (principal); I10 Essential (primary) hypertension; R00.1 Bradycardia, unspecified; K80.80 Other cholelithiasis without obstruction; E66.9 Obesity, unspecified; Z68.42 Body mass index [BMI] 45.0-49.9, adult
CPT/HCPCS: 36415; 71046-TC-FY; 80053; 83735; 84484; 84703; 85025; 93005; 93010; 99282-25

== ENCOUNTER 2019-10-26 12:46 | Emergency (ER) | payer OTHER ==
[2019-10-26 13:02] VITALS: BMI 44.2
[2019-10-26] MEDS ORDERED: ONDANSETRON 4 MG/2 ML VIAL IVPUSH ONE (13:45)
[2019-10-26] MEDS ORDERED: SODIUM CHLORIDE 0.9% 500 ML INFUS.BAG IV ONE (13:45)
--- NOTE | 2019-10-26 13:56 | PDOC ---
History of Present Illness - General Chief Complaint: Nausea/Vomiting Stated Complaint: DIZZY/VOMITING/NAUSEA (4 WKS PREG) - History of Present Illness Initial Comments: Yary Cazares is a 24yo A1 woman, currently 6w1d gestation by LMP (09/13), who presents with nausea, vomiting and "dizziness," which she describes as not being "able to feel [her] body." She states that for the past week or so, she has felt nauseated whenever she tries to eat or drink anything, and she has vomiting multiple times. She also says that she has not been able to feel her body normally throughout this time, though she denies any focal weakness, numbness, tingling, loss of tactile sensation, feeling of heat/cold in her extremities, or any other focal neurological symptoms. She additionally denies any recent fevers, chills, dysuria, vaginal bleeding, vaginal discharge, change in bowel habits, or other recent symptoms. Past History - Past Medical History Allergies/Adverse Reactions: Allergies Allergy/AdvReac Type Severity Reaction Status Date / Time milk Allergy Severe Difficulty Verified 10/26/19 12:58 Breathing No Known Drug Allergies Allergy Severe Difficulty Verified 10/26/19 12:58 Breathing peanut Allergy Severe Difficulty Verified 10/26/19 12:58 Breathing Home Medications: Ambulatory Orders NK [No Known Home Medication] 10/26/19 Anemia: Yes Asthma: No Cancer: No Cardiac Disorders: Yes (bradycardia) COPD: No Diabetes: No HTN: Yes Seizures: No Thyroid Disease: No - Surgical History Abdominal Surgery: Yes (Yes- ) - Reproductive History (#): 1 Para: 0 - Immunization History Immunization Up to Date: No - Psycho Social/Smoking Cessation Hx Smoking Status: Yes Smoking History: Current every day smoker Have you smoked in the past 12 months: No Number of Cigarettes Smoked Daily: 10 Information on smoking cessation initiated: No 'Breaking Loose' booklet given: 09/14/16 Hx Alcohol Use: No Drug/Substance Use Hx: No Substance Use Type: None Hx Substance Use Treatment: No Review of Systems - Review of Systems Comments:: General: No fevers, no chills, no weight or appetite change, no malaise, +Dizzy HEENT: No changes in vision, no changes in hearing, no congestion, no sore throat CV: No chest pain, no palpitations, no LE edema Pulm: No SOB, no cough, no wheezing GI: +nausea, +vomiting, no change in bowel habits, no melena : No frequency, no urgency, no dysuria Musc: No back pain, no joint swelling, no recent injury Skin: No rash, no lesions, no erythema Endo: No excessive thirst, no heat/cold intolerance Heme: No unusual bruising or bleeding, no swollen glands Neuro: No syncope, no numbness/tingling, no focal weakness Vasc: No claudication Psych: No recent change in mood, no SI or HI *Physical Exam - Vital Signs Last Vital Signs Temp Pulse Resp BP Pulse Ox 99.3 F 76 18 118/91 99 10/26/19 12:58 10/26/19 12:58 10/26/19 12:58 10/26/19 12:58 10/26/19 12:58 - Physical Exam General: Comfortable, no acute distress HEENT: Atraumatic, PERRL, EOMI, MMM, voice normal Cards: RRR, no murmur appreciated Pulm: Comfortable on room air, clear to auscultation bilaterally Abd: Soft, nontender, nondistended : No CVA tendernesss Ext: Atraumatic. No LE edema. ROM intact. WWP Skin: Normal color, no rashes or lesions Neuro: A&Ox3, CN grossly intact, normal speech, motor/sensory grossly intact and symmetric Psych: Mood appropriate to situation ED Treatment Course - LABORATORY CBC & Chemistry Diagram: 10/26/19 14:13 10/26/19 14:13 Medical Decision Making - Medical Decision Making 10/26/19 13:46 Yary Cazares is a 24yo A1 woman, currently 6w1d gestation by LMP (09/13), who presents with nausea, vomiting and not being "able to feel [her] body " for the past week. - Most likely discomforts of normal early , but could have mild dehydration or electrolyte abnormalities from vomiting. - CBC, CMP, UA, bHCG, T&S - IVF, zofran - TV vs abd US to confirm IUP 10/26/19 15:53 - bHCG 35150 - Labs otherwise unremarkable. UA negative - Abd US ordered 10/26/19 16:36 - US with IUP, estimated 6wks, FHR 125. Notes small subchorionic hemorrhage - Pt updated with results, advised to f/u hemorrhage - Feeling improved, would like to be discharged home. Advised regarding home care, follow up, return precautions at length. Discussed with Dr Curtis Miller PGY2 Discharge - Discharge Information Problems reviewed: Yes Clinical Impression/Diagnosis: Nausea and vomiting during prior to 22 weeks gestation Condition: Stable Disposition: HOME - Admission No - Follow up/Referral Referrals: Sara Valencia MD [Staff Physician] - Marie Villa MD [Staff Physician] - [facility] [Provider Group] - Patient Discharge Instructions Patient Printed Discharge Instructions: DI for -- Discomforts and Remedies, DI for Morning Sickness Additional Instructions: Discharge Instructions: You were seen in the emergency department for nausea, vomiting, and lightheadedness in early . Your urine test and blood tests were normal. Your ultrasound showed a normal at about 6 weeks. The baby's heart rate was 125 beats/min. Home Care and Follow Up: - Make sure you are taking a vitamin - Eat small meals frequently throughout the day. Try to eat as soon as you wake up. Consider keeping a snack next to your bed to eat first thing in the morning. - If you are still nauseated after eating more frequent meals, consider using vitamin B6 and doxylamine. These are both available over the counter. - Doxylamine is sold as a sleeping aid (brand name Unisom) and comes in 25mg tablets. - Take Vitamin B6 25mg three times per day. Try this alone first. - If you are still nauseated, add half of a doxylamine tablet daily. This should be 12.5mg daily. Be careful driving because it will make you sleepy - Make an appointment to establish care with an equipment service engineer. You have been given contact information for Dr Valencia and Dr Villa. - Seek immediate care for worsening symptoms, persistent vomiting, inability to eat, dehydration, vaginal bleeding, or any other medical emergency. - Post Discharge Activity
--- NOTE | 2019-10-26 13:58 | PDOC ---
Attending Attestation - Resident Resident Name: AngelaMari - ED Attending Attestation I have performed the following: I have examined & evaluated the patient, The case was reviewed & discussed with the resident, I agree w/resident's findings & plan, Exceptions are as noted - HPI HPI: 10/26/19 13:57 24y F A1 at 6 weeks gestation presents with complaint of nausea, and lightheaded for a few days. Patient denies any other complaints including headache, blurry vision, vomiting , abdominal pain, vaginal bleeding, dysuria, hematuria, diarrhe, cp, palpitations,sob, lama. physical exam: GENERAL: The patient is awake, alert, and fully oriented, Nontoxic - in no acute distress. obese HEAD: Normocephalic, atraumatic. EYES: extraocular movements intact, sclera anicteric, conjunctiva clear. ENT: Normal voice, Moist mucous membranes. NECK: Normal range of motion, supple LUNGS: Breath sounds equal, clear to auscultation bilaterally. No wheezes, no rhonchi, no rales. HEART: Regular rate and rhythm, normal S1 and S2 without murmur, rub or gallop. ABDOMEN: Soft, nontender, No guarding, no rebound. No CVA tenderness EXTREMITIES: Normal range of motion, no edema. NEUROLOGICAL: No facial assymetry, Normal speech, movin gall 4 extremities spontaneously and symmetrically PSYCH: Normal mood, normal affect. SKIN: Warm, Dry, normal turgor, Differential for the patient's symptoms includes normal , metabolic derangements, anemia We will check blood work, will treat the patient symptomatic with fluids. Will obtain a beta as well as a ultrasound to eval viability. - Physicial Exam PE: 10/28/19 17:59 see above - Medical Decision Making pts hcg at 22k, us noted for live IUP at 6 weeks with suggestion of subchorionic hemorrhage - will avhe pt fu with painter ordnance return precautions were discussed
[2019-10-26] MEDS ORDERED: ONDANSETRON 4 MG/2 ML VIAL ONE (14:00)
[2019-10-26 14:49] LABS: BASO % 1.1 % (0-2.0); HEMATOCRIT 38.2 % (32.4-45.2); HEMOGLOBIN 12.7 GM/dL (10.7-15.3); MCH 26.6 pg (25.7-33.7); MCHC 33.4 g/dl (32.0-36.0); MEAN CELL VOLUME 79.6 fl (80-96); MEAN PLT VOLUME 11.6 fl (7.5-11.1); MONO % 5.5 % (3.8-10.2); NEUT % 61.4 % (42.8-82.8); PLATELET COUNT 131 K/MM3 (134-434); RBC 4.79 M/mm3 (3.60-5.2); RDW 15.7 % (11.6-15.6); WHITE BLOOD COUNT 6.5 K/mm3 (4.0-10.0)
[2019-10-26 14:53] LABS: PH,URINE 8.5 (5.0-8.0); URINE APPEARANCE CLOUDY; URINE BILIRUBIN NEGATIVE (NEGATIVE); URINE COLOR YELLOW; URINE GLUCOSE (UA) NEGATIVE (NEGATIVE); URINE KETONE NEGATIVE (NEGATIVE); URINE LEUK ESTERASE NEGATIVE (NEGATIVE); URINE NITRITE NEGATIVE (NEGATIVE); URINE PROTEIN NEGATIVE (NEGATIVE)
[2019-10-26 15:21] LABS: ALBUMIN 3.4 g/dl (3.4-5.0); BILIRUBIN,TOTAL 0.2 mg/dL (0.2-1); BLOOD UREA NITROGEN 10.3 mg/dL (7-18); CALCIUM 8.8 mg/dL (8.5-10.1); CREATININE 0.8 mg/dL (0.55-1.3); TOT PROT 7.1 g/dl (6.4-8.2)
[2019-10-26 15:22] LABS: POTASSIUM 4.5 mmol/L (3.5-5.1)
[2019-10-26 17:06] VITALS: BP 133/67; PULSE 83; TEMP 98.3
== END 2019-10-26 16:57 | disposition home or self-care (01) ==
LOC: JER 12:46
PROC: 3E033GC Introduction of Other Therapeutic Substance into Peripheral Vein, Percutaneous Approach (ICD-10-PCS; principal; 2019-10-26)
DX: O26.891 Other specified pregnancy related conditions, first trimester (principal); O21.0 Mild hyperemesis gravidarum; Z3A.01 Less than 8 weeks gestation of pregnancy; O16.1 Unspecified maternal hypertension, first trimester; F17.210 Nicotine dependence, cigarettes, uncomplicated
CPT/HCPCS: 36415; 76801-TC; 80053; 81003; 84702; 85025; 86850; 86900; 86901; 87086; 87186; 96374; 99283-25

== ENCOUNTER 2019-11-10 14:01 | Emergency (ER) | payer OTHER ==
[2019-11-10 14:22] VITALS: BMI 49.6
[2019-11-10] MEDS ORDERED: KETOROLAC TROMETHAMINE 30 MG/1 ML VIAL IM ONE (17:00)
--- NOTE | 2019-11-10 17:05 | PDOC ---
History of Present Illness - General Chief Complaint: Vaginal Bleeding Stated Complaint: VAGINAL BLEEDING Time Seen by Provider: 11/10/19 16:23 History Source: Patient Exam Limitations: No Limitations Past History - Travel Traveled outside of the country in the last 30 days: No Close contact w/someone who was outside of country & ill: No - Past Medical History Allergies/Adverse Reactions: Allergies Allergy/AdvReac Type Severity Reaction Status Date / Time milk Allergy Severe Difficulty Verified 11/10/19 14:20 Breathing No Known Drug Allergies Allergy Severe Difficulty Verified 11/10/19 14:20 Breathing peanut Allergy Severe Difficulty Verified 11/10/19 14:20 Breathing Home Medications: Ambulatory Orders Cephalexin Monohydrate [Keflex -] 500 mg PO BID #14 capsule 10/28/19 Anemia: Yes Asthma: No Cancer: No Cardiac Disorders: Yes (bradycardia) COPD: No Diabetes: No HTN: Yes Seizures: No Thyroid Disease: No - Surgical History Abdominal Surgery: Yes (Yes- ) - Reproductive History (#): 1 Para: 0 - Immunization History Immunization Up to Date: No - Psycho Social/Smoking Cessation Hx Smoking Status: Yes Smoking History: Never smoked Have you smoked in the past 12 months: No Number of Cigarettes Smoked Daily: 10 'Breaking Loose' booklet given: 09/14/16 Hx Alcohol Use: No Drug/Substance Use Hx: No Substance Use Type: None Hx Substance Use Treatment: No Review of Systems - Review of Systems Able to Perform ROS?: Yes Comments:: 11/10/19 17:02 CONSTITUTIONAL: Absent: fever, chills, diaphoresis, generalized weakness, malaise, loss of appetite HEENT: Absent: rhinorrhea, nasal congestion, throat pain, throat swelling, difficulty swallowing, mouth swelling, ear pain, eye pain, visual Changes CARDIOVASCULAR: Absent: chest pain, loss of consciousness, palpitations, irregular heart rate, peripheral edema RESPIRATORY: Absent: cough, shortness of breath, dyspnea with exertion, orthopnea, wheezing, stridor, hemoptysis GASTROINTESTINAL: Absent: abdominal pain, abdominal distension, nausea, vomiting, diarrhea, constipation, melena, hematochezia GENITOURINARY: Present: Vaginal bleeding, dysuria, frequency, lower abdominal pain absent: dysuria, frequency, urgency, hesitancy, hematuria, flank pain, genital pain MUSCULOSKELETAL: Absent: myalgia, arthralgia, joint swelling SKIN: Absent: rash, itching, pallor HEMATOLOGIC/IMMUNOLOGIC: Absent: easy bleeding, easy bruising, lymphadenopathy, frequent infections ENDOCRINE: Absent: unexplained weight gain, unexplained weight loss, heat intolerance, cold intolerance NEUROLOGIC: Absent: headache, focal weakness or paresthesias, dizziness, unsteady gait, seizure, mental status changes, bladder or bowel incontinence PSYCHIATRIC: Absent: anxiety, depression, suicidal or homicidal ideation, hallucinations. Is the patient limited Nepali proficient: No *Physical Exam - Vital Signs Last Vital Signs Temp Pulse Resp BP Pulse Ox 98.2 F 60 16 147/61 100 11/10/19 14:20 11/10/19 14:20 11/10/19 14:20 11/10/19 14:20 11/10/19 14:20 - Physical Exam 11/10/19 17:03 GENERAL: Well developed, well nourished. Awake and alert. No acute distress. HEENT: Normocephalic, atraumatic. PERRLA, EOMI. No conjunctival pallor. Sclera are non- icteric. Moist mucous membranes. Oropharynx is clear. NECK: Supple. Full ROM. No JVD. Carotid pulses 2+ and symmetric, without bruits. No thyromegaly. No lymphadenopathy. CARDIOVASCULAR: Regular rate and rhythm. No murmurs, rubs, or gallops. Distal pulses are 2+ and symmetric. PULMONARY: No evidence of respiratory distress. Lungs clear to auscultation bilaterally. No wheezing, rales or rhonchi. ABDOMINAL: Tenderness palpation of the lower abdomen without focal findings. Soft. Non- tender. Non-distended. No rebound or guarding. No organomegaly. Normoactive bowel sounds. MUSCULOSKELETAL Normal range of motion at all joints. No bony deformities or tenderness. No CVA tenderness. EXTREMITIES: No cyanosis. No clubbing. No edema. No calf tenderness. SKIN: Warm and dry. Normal capillary refill. No rashes. No jaundice. NEUROLOGICAL: Alert, awake, appropriate. Cranial nerves 2-12 intact. No deficits to light touch and temperature in face, upper extremities and lower extremities. No motor deficits in the in face, upper extremities and lower extremities. Normoreflexic in the upper and lower extremities. Normal speech. Toes are down- going bilaterally. Gait is normal without ataxia. PSYCHIATRIC: Cooperative. Good eye contact. Appropriate mood and affect. ED Treatment Course - LABORATORY CBC & Chemistry Diagram: 11/10/19 16:54 11/10/19 16:54 - RADIOLOGY Radiology Studies Ordered: Category Date Time Status TRANSVAGINAL US PREG [US] Stat Ultrasound 11/10/19 16:24 Ordered Medical Decision Making - Medical Decision Making 11/10/19 17:03 The patient is a 24-year-old female, G3, P2 presents to the ER for vaginal bleeding. She states she took an pill from [facility] on Monday11/06/19. She states since then she has had vaginal bleeding and lower abdominal pain. She notes that she is gone through 6 pads a day. She states that the pain has gotten worse today so she came to the ER for evaluation. She notes that she is going to the bathroom frequently and it hurts to pee. She is also concerned whether she is passed the fetus. Denies fevers, chills, vomiting, nausea, diarrhea and constipation. She states she can take Tylenol Motrin for the pain with little relief of her symptoms. A/P: Vaginal bleeding On exam patient with lower abdominal pain without focal findings. No CVA tenderness. Given recent pill, will obtain lab work, urine to evaluate status as well as rule out UTI. Transvaginal ultrasound ordered to rule out retained products of conception. Reevaluate 11/10/19 19:42 TVUS shows no evidence of at this time, no cysts noted Pt blood type is B+; does not need Rhogam Pain improved No evidence of UTI Pt went for US prior to pelvic exam, does not want to have pelvic exam done as she had the US. Defer pelvic Hgb stable DC home with f/u with [facility] Return precautions given I discussed the physical exam findings, ancillary test results and final diagnoses with the patient. I answered all of the patient's questions. The patient was satisfied with the care received and felt comfortable with the discharge plan and treatment plan. The Patient agrees to follow up with the primary care physician/specialist within 24-72 hours. Return precautions were given. Discharge - Discharge Information Problems reviewed: Yes Clinical Impression/Diagnosis: Complete Condition: Stable Disposition: HOME - Admission No - Follow up/Referral Referrals: Herrera Roblero MD [Staff Physician] - - Patient Discharge Instructions Patient Printed Discharge Instructions: DI for Therapeutic : Medical Additional Instructions: Your ultrasound did not show evidence of a today. You had a complete . The bleeding will continue for the next few days. The pain will also continue as it is a strong. You may take Motrin 600 mg every 6 hours for pain. Apply heating pads to the area. Please follow-up with [facility] tomorrow Return to the ER for fever, vomiting, increased pain or if you have any changes in your symptoms. - Post Discharge Activity Work/Back to School Note: Back to Work
[2019-11-10] MEDS ORDERED: KETOROLAC TROMETHAMINE 30 MG/1 ML VIAL ONE (17:12)
[2019-11-10 17:13] LABS: BASO % 1.3 % (0-2.0); EOS % 2.6 % (0-4.5); HEMATOCRIT 35.3 % (32.4-45.2); HEMOGLOBIN 11.7 GM/dL (10.7-15.3); LYMPH % 29.3 % (8-40); MCH 26.6 pg (25.7-33.7); MCHC 33.2 g/dl (32.0-36.0); MEAN CELL VOLUME 80.2 fl (80-96); MEAN PLT VOLUME 11.4 fl (7.5-11.1); MONO % 4.4 % (3.8-10.2); NEUT % 62.4 % (42.8-82.8); PLATELET COUNT 141 K/MM3 (134-434); RDW 15.5 % (11.6-15.6); WHITE BLOOD COUNT 7.1 K/mm3 (4.0-10.0)
[2019-11-10 17:46] LABS: INR 1.12 (0.83-1.09); PROTHROMBIN TIME (PATIENT) 13.2 SEC (9.7-13.0)
[2019-11-10 18:26] LABS: ALBUMIN 3.2 g/dl (3.4-5.0); BILIRUBIN,TOTAL 0.1 mg/dL (0.2-1); BLOOD UREA NITROGEN 13.1 mg/dL (7-18); CALCIUM 8.7 mg/dL (8.5-10.1); CREATININE 0.7 mg/dL (0.55-1.3); TOT PROT 6.5 g/dl (6.4-8.2)
[2019-11-10 18:27] LABS: EPI CELLS 0.1 /HPF (0-5/HPF); HYALINE CASTS 0 /lpf (0-8); PH,URINE 6.5 (5.0-8.0); URINE APPEARANCE CLOUDY; URINE BACTERIA 26.3 /hpf (NEGATIVE); URINE BILIRUBIN NEGATIVE (NEGATIVE); URINE COLOR RED; URINE GLUCOSE (UA) NEGATIVE (NEGATIVE); URINE KETONE NEGATIVE (NEGATIVE); URINE LEUK ESTERASE 1+ (NEGATIVE); URINE NITRITE NEGATIVE (NEGATIVE); URINE PROTEIN 1+ (NEGATIVE); URINE RBC 1 /hpf (0-4); URINE WBC 0 /hpf (0-5)
[2019-11-10 18:59] VITALS: BP 122/50; PULSE 88; TEMP 98.3
== END 2019-11-10 19:53 | disposition home or self-care (01) ==
LOC: JER 14:01
PROC: 3E0233Z Introduction of Anti-inflammatory into Muscle, Percutaneous Approach (ICD-10-PCS; principal; 2019-11-10)
DX: O03.6 Delayed or excessive hemorrhage following complete or unspecified spontaneous abortion (principal); Z91.010 Allergy to peanuts; Z91.011 Allergy to milk products
CPT/HCPCS: 36415; 76817-TC; 80053; 81003; 84702; 85025; 85610; 86850; 86900; 86901; 87086; 96372; 99284-25

== ENCOUNTER 2020-05-20 20:47 | Emergency (ER) | payer OTHER ==
--- NOTE | 2020-05-20 20:55 | PDOC ---
Rapid Medical Evaluation Time Seen by Provider: 05/20/20 20:51 Medical Evaluation: Allergies Allergy/AdvReac Type Severity Reaction Status Date / Time milk Allergy Severe Difficulty Verified 02/10/20 08:55 Breathing No Known Drug Allergies Allergy Severe Difficulty Verified 02/10/20 08:55 Breathing peanut Allergy Severe Difficulty Verified 02/10/20 08:55 Breathing 05/20/20 20:51 I have performed a brief in-person evaluation of this patient. CC: chest pain x3 days. Starts in b/l breasts and radiates to midsternum PE: No focal findings Orders: labs, ekg, CXR Patient to proceed to ED for further evaluation. Discharge Disposition - Diagnosis Chest pain - Referrals - Patient Instructions - Post Discharge Activity
[2020-05-20 21:01] VITALS: TEMP 98.6; BMI 46.0
[2020-05-20 22:01] LABS: HCG,QUALITATIVE URINE Positive
[2020-05-20 22:06] LABS: EPI CELLS >36 /uL (0-25.1); HYALINE CASTS 6 /uL (0-3.1); PH,URINE 6.5 (5.0-8.0); URINE APPEARANCE CLOUDY; URINE BACTERIA 1150 /uL (0-1359); URINE BILIRUBIN NEGATIVE (NEGATIVE); URINE COLOR YELLOW; URINE GLUCOSE (UA) NEGATIVE (NEGATIVE); URINE KETONE TRACE (NEGATIVE); URINE LEUK ESTERASE TRACE (NEGATIVE); URINE NITRITE NEGATIVE (NEGATIVE); URINE PROTEIN NEGATIVE (NEGATIVE); URINE WBC 46 /uL (0-25.8)
--- NOTE | 2020-05-20 22:11 | PDOC ---
History of Present Illness - General Chief Complaint: Chest Pain Stated Complaint: CHEST PAIN Time Seen by Provider: 05/20/20 20:51 History Source: Patient Exam Limitations: No Limitations - History of Present Illness Initial Comments: 05/20/20 22:07 24-year-old female no significant past medical history A1 presenting the ED complaining of chest pain for 3 days. Patient states that the chest pain radiates from her breast and sternum is sharp and intermittent not associated with exertion or shortness of breath. She did not take any medicine for the pain. Patient is receiving care for . Patient denies family history of AMI under the age of 5555 year old, sudden cardiac , history of DVT/PE/hypercoagulopathy or aneurysms. Pt otherwise denies: fevers, chills, syncope, lightheadedness, dizziness, headaches, neck pain, shortness of breath, palpitations, back pain, abdominal pain, nausea, vomiting, diarrhea, constipation. Past History - Medical History Allergies/Adverse Reactions: Allergies Allergy/AdvReac Type Severity Reaction Status Date / Time milk Allergy Severe Difficulty Verified 02/10/20 08:55 Breathing No Known Drug Allergies Allergy Severe Difficulty Verified 02/10/20 08:55 Breathing peanut Allergy Severe Difficulty Verified 02/10/20 08:55 Breathing Home Medications: Ambulatory Orders NK [No Known Home Medication] 02/10/20 Anemia: Yes Asthma: No Cancer: No Cardiac Disorders: Yes (bradycardia) COPD: No Diabetes: No HTN: Yes Seizures: No Thyroid Disease: No - Surgical History Abdominal Surgery: Yes (Yes- ) - Reproductive History (#): 1 Para: 0 - Immunization History Immunization Up to Date: No - Psycho-Social/Smoking History Smoking Status: Yes Smoking History: Never smoked Have you smoked in the past 12 months: No Number of Cigarettes Smoked Daily: 10 'Breaking Loose' booklet given: 09/14/16 - Substance Abuse Hx (Audit-C & DAST Scrn) How often the patient has a drink containing alcohol: Never Score: In Men: 4 or > Positive; In Women: 3 or > Positive: 0 Screen Result (Pos requires Nsg. Audit-10AR): Negative In the last yr the pt used illegal drug/Rx for NonMed reason: No Score: Yes response is considered Positive: 0 Screen Result (Positive result requires Nsg. DAST-10): Negative *Physical Exam - Vital Signs Last Vital Signs Temp Pulse Resp BP Pulse Ox 98.6 F 62 19 125/59 L 100 05/20/20 20:52 05/20/20 20:52 05/20/20 20:52 05/20/20 20:52 05/20/20 20:52 - Physical Exam 05/20/20 22:09 Gen: AAOx 3, no acute distress, comfortable, no signs of respiratory distress HENT: atraumatic, normocephalic with no laceration or contusion. Nasal mucosa without erythema. Oropharynx without erythema or exudates. Mucous membranes moist. EYES: PERRL, EOM intact, conjunctiva pink NECK: supple; trachea midline; no JVD, no lymphadenopathy, or thyromegaly CV: RRR no murmurs, gallops, or rubs. CHEST: CTA b/l no wheezing, rales or rhonchi ABD: +BS/ND. no TTP; soft, no rebound, no guarding. Uterine fundus slightly below umbillicus EXTREMITY: no cyanosis or erythema. 2+ dorsalis pedis, posterior tibial, and radial pulse. No pedal edema; no calf swelling or tenderness SKIN: no rash, warm and dry, no diaphoresis HEME: no purpura or ecchymosis NEURO: normal speech, CN II-XII intact, sensation intact, normal gait, no cerebellar deficits MS: 5/5 strength in all extremities, FROM intact in all extremities. ED Treatment Course - LABORATORY CBC & Chemistry Diagram: 05/20/20 21:39 05/20/20 21:39 - ADDITIONAL ORDERS Additional order review: Laboratory Results 05/20/20 21:30 Urine Color Yellow Urine Appearance Cloudy Urine pH 6.5 Ur Specific [place] 1.035 Urine Protein Negative Urine Glucose (UA) Negative Urine Ketones Trace H Urine Blood Negative Urine Nitrite Negative Urine Bilirubin Negative Urine Urobilinogen 1.0 Ur Leukocyte Esterase Trace Urine WBC (Auto) 46 Urine Casts (Auto) 6 U Epithel Cells (Auto) >36 Urine Bacteria (Auto) 1150 Urine HCG, Qual Positive - RADIOLOGY Radiology Studies Ordered: Category Date Time Status CHEST PA & LAT [RAD] Stat Radiology 05/20/20 20:55 Ordered Medical Decision Making - Medical Decision Making 05/20/20 22:09 24-year-old female currently planing of chest pain intermittently for the last 3 days Vital signs stable PERC criteria negative Will obtain labs EKG chest x-ray (will ensure that patient is properly shielded by x-ray tech) Will reassess based on results EKG NSR Due to shift change patient signed out to nurse practitioner Bakari Bell pending labs and x-ray findings Discharge - Discharge Information Problems reviewed: Yes Clinical Impression/Diagnosis: Chest pain Qualifiers: Chest pain type: unspecified Qualified Code(s): R07.9 - Chest pain, unspecified - Follow up/Referral - Patient Discharge Instructions - Post Discharge Activity
[2020-05-20 22:15] LABS: BASO % 0.3 % (0-2.0); EOS % 1.6 % (0-4.5); HEMATOCRIT 36.8 % (32.4-45.2); HEMOGLOBIN 12.2 GM/dL (10.7-15.3); LYMPH % 25.8 % (8-40); MCH 26.6 pg (25.7-33.7); MCHC 33.1 g/dl (32.0-36.0); MEAN CELL VOLUME 80.3 fl (80-96); MEAN PLT VOLUME 11.2 fl (7.5-11.1); MONO % 4.9 % (3.8-10.2); NEUT % 67.4 % (42.8-82.8); PLATELET COUNT 122 K/MM3 (134-434); RBC 4.58 M/mm3 (3.60-5.2); RDW 15.9 % (11.6-15.6)
[2020-05-20 22:21] LABS: INR 1.17 (0.83-1.09); PROTHROMBIN TIME (PATIENT) 13.8 SEC (9.7-13.0)
[2020-05-20 22:24] LABS: ACTIVATED PTT 25.8 SECONDS (25.2-36.5)
[2020-05-20 22:53] LABS: ALBUMIN 2.6 g/dl (3.4-5.0); ALK PHOS 86 U/L (45-117); ANION GAP 8 MMOL/L (8-16); BILIRUBIN,TOTAL 0.2 mg/dL (0.2-1); BLOOD UREA NITROGEN 11.4 mg/dL (7-18); CALCIUM 8.7 mg/dL (8.5-10.1); CHLORIDE 108 mmol/L (98-107); CO2 22 mmol/L (21-32); CREATININE 0.9 mg/dL (0.55-1.3); GLUCOSE,RANDOM 100 mg/dL (74-106); LIPASE 135 U/L (73-393); MAGNESIUM 2.1 mg/dL (1.8-2.4); POTASSIUM 3.6 mmol/L (3.5-5.1); SGOT/AST 11 U/L (15-37); SGPT/ALT 17 U/L (13-61); SODIUM 139 mmol/L (136-145); TOT PROT 6.5 g/dl (6.4-8.2)
--- NOTE | 2020-05-20 22:55 | PDOC ---
*Physical Exam - Vital Signs Last Vital Signs Temp Pulse Resp BP Pulse Ox 98.6 F 62 19 125/59 L 100 05/20/20 20:52 05/20/20 20:52 05/20/20 20:52 05/20/20 20:52 05/20/20 20:52 - Physical Exam General Appearance: Yes: Appropriately Dressed. No: Apparent Distress Respiratory/Chest: positive: Lungs Clear, Normal Breath Sounds. negative: Chest Tender, Respiratory Distress, Accessory Muscle Use Cardiovascular: positive: Regular Rhythm, Regular Rate, S1, S2. negative: Edema, Murmur Heart Score/ECG Review - History History: Slightly suspicious - Electrocardiogram EKG: Normal - Age Age: </= 45 - Risk Factors Risk Factors Heart Score: Yes Hx Obesity Based on the list above the patient has:: 1-2 risk factors - Troponin Troponin: </= normal limit - Score Heart Score - Total: 1 ED Treatment Course - LABORATORY CBC & Chemistry Diagram: 05/20/20 21:39 05/20/20 21:39 - ADDITIONAL ORDERS Additional order review: Laboratory Results 05/20/20 05/20/20 05/20/20 21:39 21:39 21:30 PT with INR 13.80 H INR 1.17 H PTT (Actin FS) 25.8 Sodium 139 Potassium 3.6 Chloride 108 H Carbon Dioxide 22 Anion Gap 8 BUN 11.4 Creatinine 0.9 Est GFR (CKD-EPI)AfAm 102.28 Est GFR (CKD-EPI)NonAf 88.25 Random Glucose 100 Calcium 8.7 Magnesium 2.1 Total Bilirubin 0.2 AST 11 L ALT 17 Alkaline Phosphatase 86 Creatine Kinase 88 Troponin I < 0.02 Total Protein 6.5 Albumin 2.6 L Lipase 135 Urine Color Yellow Urine Appearance Cloudy Urine pH 6.5 Ur Specific [place] 1.035 Urine Protein Negative Urine Glucose (UA) Negative Urine Ketones Trace H Urine Blood Negative Urine Nitrite Negative Urine Bilirubin Negative Urine Urobilinogen 1.0 Ur Leukocyte Esterase Trace Urine WBC (Auto) 46 Urine Casts (Auto) 6 U Epithel Cells (Auto) >36 Urine Bacteria (Auto) 1150 Urine HCG, Qual Positive 05/20/20 21:39 RBC 4.58 MCV 80.3 MCHC 33.1 RDW 15.9 H MPV 11.2 H Neutrophils % 67.4 Lymphocytes % 25.8 Monocytes % 4.9 Eosinophils % 1.6 Basophils % 0.3 ED Progress Note - Progress Note Progress Note: 05/20/20 22:54 Received patient from NEL Tuttle. Briefly this is a 24-year-old woman is currently 17 weeks gestation who presents emergency department for evaluation of bilateral breast pain radiating to her sternum. Patient's pain is mildly reproducible and patient is unable to identify any aggravating or alleviating factors. EKG was unremarkable Laboratory testing is pending Disposition pending laboratory test Medical Decision Making - Medical Decision Making 05/20/20 23:14 Laboratory Tests 05/20/20 05/20/20 05/20/20 21:30 21:39 21:39 WBC 7.0 RBC 4.58 Hgb 12.2 Hct 36.8 MCV 80.3 MCH 26.6 MCHC 33.1 RDW 15.9 H Plt Count 122 L MPV 11.2 H Absolute Neuts (auto) 4.7 Neutrophils % 67.4 Lymphocytes % 25.8 Monocytes % 4.9 Eosinophils % 1.6 Basophils % 0.3 Nucleated RBC % 0 PT with INR 13.80 H INR 1.17 H PTT (Actin FS) 25.8 Sodium Potassium Chloride Carbon Dioxide Anion Gap BUN Creatinine Est GFR (CKD-EPI)AfAm Est GFR (CKD-EPI)NonAf Random Glucose Calcium Magnesium Total Bilirubin AST ALT Alkaline Phosphatase Creatine Kinase Troponin I Total Protein Albumin Lipase Urine Color Yellow Urine Appearance Cloudy Urine pH 6.5 Ur Specific [place] 1.035 Urine Protein Negative Urine Glucose (UA) Negative Urine Ketones Trace H Urine Blood Negative Urine Nitrite Negative Urine Bilirubin Negative Urine Urobilinogen 1.0 Ur Leukocyte Esterase Trace Urine WBC (Auto) 46 Urine Casts (Auto) 6 U Epithel Cells (Auto) >36 Urine Bacteria (Auto) 1150 Urine HCG, Qual Positive 05/20/20 21:39 WBC RBC Hgb Hct MCV MCH MCHC RDW Plt Count MPV Absolute Neuts (auto) Neutrophils % Lymphocytes % Monocytes % Eosinophils % Basophils % Nucleated RBC % PT with INR INR PTT (Actin FS) Sodium 139 Potassium 3.6 Chloride 108 H Carbon Dioxide 22 Anion Gap 8 BUN 11.4 Creatinine 0.9 Est GFR (CKD-EPI)AfAm 102.28 Est GFR (CKD-EPI)NonAf 88.25 Random Glucose 100 Calcium 8.7 Magnesium 2.1 Total Bilirubin 0.2 AST 11 L ALT 17 Alkaline Phosphatase 86 Creatine Kinase 88 Troponin I < 0.02 Total Protein 6.5 Albumin 2.6 L Lipase 135 Urine Color Urine Appearance Urine pH Ur Specific [place] Urine Protein Urine Glucose (UA) Urine Ketones Urine Blood Urine Nitrite Urine Bilirubin Urine Urobilinogen Ur Leukocyte Esterase Urine WBC (Auto) Urine Casts (Auto) U Epithel Cells (Auto) Urine Bacteria (Auto) Urine HCG, Qual Patient's initial troponin is negative and although there is greater than 36 epithelial cells as patient is currently gravid I will treat for asymptomatic bacteriuria. Keflex 500 mg twice daily for the next 7 days Discharge home I discussed the physical exam findings, ancillary test results and final diagnoses with the patient. I answered all of the patient's questions. The patient was satisfied with the care received and felt comfortable with the discharge plan and treatment plan. The patient will call their primary care physician within 24 hours to arrange follow-up and will return to the Emergency Department with any new, persistent or worsening symptoms. Portions of this note have been documented using voice recognition software. As a result, errors may occur in the flexographic printing press operator process. Effort has been made to correct all grammatical and flexographic printing press operator error, but some may have been missed which may produce sporadic inaccurate flexographic printing press operator or nonsensical phrases. Discharge - Discharge Information Problems reviewed: Yes Clinical Impression/Diagnosis: Chest wall pain UTI (urinary tract infection) Qualifiers: Urinary tract infection type: site unspecified Hematuria presence: without hematuria Qualified Code(s): N39.0 - Urinary tract infection, site not specified Condition: Fair Disposition: HOME - Admission No - Additional Discharge Information Prescriptions: Cephalexin Monohydrate [Keflex -] 500 mg PO BID #14 capsule - Follow up/Referral - Patient Discharge Instructions Additional Instructions: Rest, drink lots of fluids: Teas, water, soups Avoid contact with others until fevers and symptoms resolved Lots of handwashing and good hygiene Continue [id number] medications for symptomatic relief Tylenol or Motrin for fever and pain Continue all of antibiotics until completed Followup with private physician in one week for repeat urinalysis/reevaluation Return to emergency department for worsened symptoms, fevers, dehydration - Post Discharge Activity
[2020-05-20 23:47] VITALS: BP 120/60; PULSE 70
--- NOTE | 2020-05-21 11:31 | EKG ---
Test Reason : Blood Pressure : / mmHG Vent. Rate : 072 BPM Atrial Rate : 072 BPM P-R Int : 170 ms QRS Dur : 076 ms QT Int : 390 ms P-R-T Axes : 021 017 010 degrees QTc Int : 427 ms NORMAL SINUS RHYTHM NORMAL ECG NO PREVIOUS ECGS AVAILABLE Confirmed by MARTIR GARCIA MD ([id number]) on 05/21/2020 11:31:15 AM Referred By: Confirmed By:MARTIR GARCIA MD
== END 2020-05-20 23:49 | disposition home or self-care (01) ==
LOC: JER 20:47
DX: R07.9 Chest pain, unspecified (principal); N39.0 Urinary tract infection, site not specified
CPT/HCPCS: 36415; 71046-TC-FY; 80053; 81003; 82550; 83690; 83735; 84484; 84703; 85025; 85610; 85730; 93005; 93010; 99285-25

== ENCOUNTER 2020-06-16 20:04 | Emergency (ER) | payer OTHER ==
[2020-06-16 20:19] VITALS: BP 131/55; PULSE 70; TEMP 98.1; BMI 49.7
[2020-06-16] MEDS: IBUPROFEN 600 MG TABLET (FP) PO ONE ×2 (21:18→21:39)
[2020-06-16] MEDS ORDERED: IBUPROFEN 600 MG TABLET (FP) PO ONE (21:20)
[2020-06-16] MEDS ORDERED: ACETAMINOPHEN 500 MG TABLET (FP) PO ONE (21:21)
[2020-06-16] MEDS ORDERED: ACETAMINOPHEN 325 MG TABLET (FP) ONE (21:22)
--- NOTE | 2020-06-16 21:25 | PDOC ---
History of Present Illness - General Chief Complaint: Ear Problem Stated Complaint: EARACHE Time Seen by Provider: 06/16/20 20:18 - History of Present Illness Initial Comments: 06/16/20 21:22 20 weeks gravid female presents for evaluation of right ear pain. No systemic symptoms. Past History - Medical History Allergies/Adverse Reactions: Allergies Allergy/AdvReac Type Severity Reaction Status Date / Time milk Allergy Severe Difficulty Verified 02/10/20 08:55 Breathing No Known Drug Allergies Allergy Severe Difficulty Verified 02/10/20 08:55 Breathing peanut Allergy Severe Difficulty Verified 02/10/20 08:55 Breathing Home Medications: Ambulatory Orders Cephalexin Monohydrate [Keflex -] 500 mg PO BID #14 capsule 05/20/20 Anemia: Yes Asthma: No Cancer: No Cardiac Disorders: Yes (bradycardia) COPD: No Diabetes: No HTN: Yes Seizures: No Thyroid Disease: No - Surgical History Abdominal Surgery: Yes (Yes- ) - Reproductive History Is Patient Now?: No (#): 1 Para: 0 - Immunization History Immunization Up to Date: No - Psycho-Social/Smoking History Smoking Status: Yes Smoking History: Never smoked Have you smoked in the past 12 months: No Number of Cigarettes Smoked Daily: 10 'Breaking Loose' booklet given: 09/14/16 - Substance Abuse Hx (Audit-C & DAST Scrn) How often the patient has a drink containing alcohol: Never Score: In Men: 4 or > Positive; In Women: 3 or > Positive: 0 Screen Result (Pos requires Nsg. Audit-10AR): Negative Review of Systems - Review of Systems Constitutional: No: Fever HEENTM: Yes: Ear Pain *Physical Exam - Vital Signs Last Vital Signs Temp Pulse Resp BP Pulse Ox 98.1 F 70 20 131/55 L 98 06/16/20 20:14 06/16/20 20:14 06/16/20 20:14 06/16/20 20:14 06/16/20 20:14 - Physical Exam 06/16/20 21:22 GENERAL: The patient is awake, alert, and fully oriented, in no acute distress. HEAD: Normal with no signs of trauma. EYES: sclera anicteric, conjunctiva clear. ENT: Left ear and tympanic membrane are normal. Left ear canal is normal. Right ear canal and external ear is normal. Right ear tympanic membrane is bulging without erythema good light reflex no effusion. normal oropharynx clear uvula midline NECK: Normal range of motion LUNGS: Breath sounds equal, clear to auscultation bilaterally. No wheezes, and no crackles. HEART: S1 and S2 without murmur, rub or gallop. ABDOMEN: Soft, nontender, normoactive bowel sounds. No guarding, no rebound. No masses. EXTREMITIES: Normal range of motion, no edema. No clubbing or cyanosis. No cords, erythema, or tenderness. NEUROLOGICAL: Cranial nerves II through XII grossly intact. PSYCH: Normal mood, normal affect. SKIN: Warm, Dry, normal turgor, no rashes or lesions noted. ED Treatment Course - Medications Given in the ED: ED Medications Discontinued Medications Generic Name Dose Route Start Last Admin Trade Name Freq PRN Reason Stop Dose Admin Ibuprofen 600 mg 06/16/20 21:11 06/16/20 21:18 Motrin - PO 06/16/20 21:12 600 mg ONCE ONE Administration Medical Decision Making - Medical Decision Making 06/16/20 21:23 Most likely a viral upper respiratory infection. Patient admits to me now she i s 20 weeks . Medications Sudafed and antihistamine as well as steroidal nasal spray are counseled. Tylenol for pain follow-up with ENT in 1 to 2 days. I have reviewed the pathophysiology with the patient. They are in agreement with the treatment plan all questions were answered to their satisfaction. Understanding for follow-up without fail was also conveyed to the patient. Again they are in agreement. This is a bulging tympanic membrane which may rupture. I expressed to her the urgency of close follow-up with a specialist. She is in agreement with the plan. Discharge - Discharge Information Problems reviewed: Yes Clinical Impression/Diagnosis: Seasonal allergies, Right ear pain Condition: Stable Disposition: HOME - Admission No - Additional Discharge Information Prescriptions: Budesonide [Rhinocort Allergy] 1 spray NS ONCE #1 bottle Budesonide [Rhinocort Allergy] 1 spray NS ONCE #1 bottle Cetirizine HCl/Pseudoephedrine [Zyrtec-D Tablet] 1 each PO DAILY #30 tab - Follow up/Referral Referrals: Tal Steiner MD [Staff Physician] - - Patient Discharge Instructions Additional Instructions: Tylenol as directed for pain and without fail return to the emergency room for worsening symptoms. Follow-up with ear nose and throat doctor without fail in 1 to 2 days for further evaluation and treatment options.Because of your you cannot take any other medications besides Tylenol. - Post Discharge Activity
== END 2020-06-16 21:47 | disposition home or self-care (01) ==
LOC: JERFT 20:04
DX: H92.01 Otalgia, right ear (principal); J30.2 Other seasonal allergic rhinitis
CPT/HCPCS: 99283-25

== ENCOUNTER 2020-06-17 06:56 | Emergency (ER) | payer OTHER ==
[2020-06-17 07:11] VITALS: BP 116/65; PULSE 80; TEMP 99.1; BMI 49.7
[2020-06-17] MEDS ORDERED: ACETAMINOPHEN 325 MG TABLET (FP) PO ONE (08:02)
--- NOTE | 2020-06-17 08:04 | PDOC ---
History of Present Illness - General Chief Complaint: Ear Problem Stated Complaint: EARACHE Time Seen by Provider: 06/17/20 07:38 History Source: Patient Exam Limitations: No Limitations - History of Present Illness Initial Comments: 06/17/20 08:00 24-year-old female presents to ED with complaints of 3 days of nasal congestion along with sinus pressure and 2 days of right ear pain which she describes a stabbing sensation with decreased hearing. Patient states is taken nothing for the above and was seen here yesterday and was told to return if symptoms worsen Is this a multiple visit Asthma Patient?: No Timing/Duration: reports: other Severity: reports: moderate Possible Cause: Yes: no prior episodes Modifying Factors: improves with: activity Associated Symptoms: reports: earache Past History - Travel History Traveled outside of the country in the last 30 days: No Close contact w/someone who was outside of country & ill: No - Medical History Allergies/Adverse Reactions: Allergies Allergy/AdvReac Type Severity Reaction Status Date / Time milk Allergy Severe Difficulty Verified 06/17/20 07:11 Breathing No Known Drug Allergies Allergy Severe Difficulty Verified 06/17/20 07:11 Breathing peanut Allergy Severe Difficulty Verified 06/17/20 07:11 Breathing Home Medications: Ambulatory Orders Cephalexin Monohydrate [Keflex -] 500 mg PO BID #14 capsule 05/20/20 Anemia: Yes Asthma: No Cancer: No Cardiac Disorders: Yes (bradycardia) COPD: No Diabetes: No HTN: Yes Seizures: No Thyroid Disease: No - Surgical History Abdominal Surgery: Yes (Yes- ) - Reproductive History Is Patient Now?: Yes (#): 1 Para: 0 - Immunization History Immunization Up to Date: No - Psycho-Social/Smoking History Patient Lives Alone: No Lives with/in: spouse/SO Smoking Status: Yes Smoking History: Never smoked Have you smoked in the past 12 months: No Number of Cigarettes Smoked Daily: 10 'Breaking Loose' booklet given: 09/14/16 - Substance Abuse Hx (Audit-C & DAST Scrn) How often the patient has a drink containing alcohol: Never Score: In Men: 4 or > Positive; In Women: 3 or > Positive: 0 Screen Result (Pos requires Nsg. Audit-10AR): Negative Respiratory Specific PMHX - Complaint Specific PMHX Hx Bronchitis: No Hx Pneumonia: No Hx Pulmonary Embolus: No Hx TB (Tuberculosis): No Review of Systems - Review of Systems Able to Perform ROS?: Yes Constitutional: No: Symptoms Reported HEENTM: Yes: Ear Pain, Ear Discharge, Hearing Loss (right ear) Respiratory: No: Symptoms reported Cardiac (ROS): No: Symptoms Reported ABD/GI: No: Symptoms Reported : No: Symptoms Reported Musculoskeletal: No: Symptoms Reported Integumentary: No: Symptoms Reported Neurological: No: Symptoms reported Endocrine: No: Symptoms Reported *Physical Exam - Vital Signs Last Vital Signs Temp Pulse Resp BP Pulse Ox 99.1 F 80 18 116/65 99 06/17/20 07:08 06/17/20 07:08 06/17/20 07:08 06/17/20 07:08 06/17/20 07:08 - Physical Exam General Appearance: Yes: Nourished, Appropriately Dressed. No: Apparent Distress HEENT: positive: JEFF, Other (Ear canal edematous and erythematous with white discharge with whitish flaking skin. TM erythematous no light reflex unable to visualize underlying structures. No visible perforation). negative: Pale Conjunctivae Neck: positive: Supple. negative: Lymphadenopathy (R), Lymphadenopathy (L) Respiratory/Chest: positive: Lungs Clear, Normal Breath Sounds. negative: Respiratory Distress, Accessory Muscle Use Cardiovascular: positive: Regular Rhythm, Regular Rate. negative: Murmur Integumentary: positive: Normal Color, Warm, Moist Neurologic: positive: Motor Strength 5/5 (ambulatory) Medical Decision Making - Medical Decision Making 06/17/20 08:08 chief complaint: Right ear pain for the past day associated with nasal congestion and sinus pressure 2 days prior. Patient is currently 20 weeks . Exam: Patient appears to have asked otitis externa and media to the right ear without visible obvious perforation of the tympanic membrane. Plan: Patient will be discharged home with antibiotics along with eardrops. Patient understands she may take Tylenol which I have given her here since she is tearful and in pain. Discharge - Discharge Information Problems reviewed: Yes Clinical Impression/Diagnosis: Otitis externa, Otitis media Condition: Good Disposition: HOME - Follow up/Referral - Patient Discharge Instructions Patient Printed Discharge Instructions: DI for Otitis Externa, Middle Ear Infection Additional Instructions: For your nasal congestion you can take Claritin and if no improvement you may take 25 to 50 mg of Benadryl but do not operate any heavy machinery while taking this as this may make you drowsy. You may take Tylenol any given time for your discomfort during this . Take antibiotics as prescribed along with eardrops protecting the ear not allowing it to get wet placing items such as ear buds in your ear for the next 5 days. - Post Discharge Activity
[2020-06-17] MEDS ORDERED: ACETAMINOPHEN 325 MG TABLET (FP) ONE (08:29)
== END 2020-06-17 08:46 | disposition home or self-care (01) ==
LOC: JER 06:56
DX: H66.90 Otitis media, unspecified, unspecified ear (principal); H60.90 Unspecified otitis externa, unspecified ear
CPT/HCPCS: 99283-25

== ENCOUNTER 2020-09-18 17:47 | Emergency (ER) | payer OTHER ==
[2020-09-18 17:59] VITALS: BP 125/74; PULSE 85; BMI 51.9
[2020-09-18 18:01] VITALS: TEMP 97.7
== END 2020-09-18 18:20 | disposition home or self-care (01) ==
LOC: JERFT 17:47
DX: Z03.818 Encounter for observation for suspected exposure to other biological agents ruled out (principal)
CPT/HCPCS: 99283-25; C9803; U0003

== ENCOUNTER 2020-09-20 02:08 | Observation (INO) | payer OTHER ==
[2020-09-20] MEDS ORDERED: ONDANSETRON 4 MG/2 ML VIAL IVPUSH ONE (02:24)
[2020-09-20] MEDS ORDERED: SODIUM CHLORIDE 1,000 ML IV STA (02:24)
[2020-09-20] MEDS ORDERED: ONDANSETRON 4 MG/2 ML VIAL ONE (02:37)
[2020-09-20 02:42] VITALS: BMI 51.9
[2020-09-20 03:56] LABS: POTASSIUM 4.5 mmol/L (3.5-5.1)
[2020-09-20 03:58] LABS: ALBUMIN 2.2 g/dl (3.4-5.0); BLOOD UREA NITROGEN 6.5 mg/dL (7-18); CALCIUM 7.8 mg/dL (8.5-10.1)
[2020-09-20 04:01] LABS: CREATININE 0.7 mg/dL (0.55-1.3)
[2020-09-20 04:03] LABS: BILIRUBIN,TOTAL 0.5 mg/dL (0.2-1); TOT PROT 6.1 g/dl (6.4-8.2)
[2020-09-20 04:09] LABS: BASO % 0.8 % (0-2.0); EOS % 0.4 % (0-4.5); HEMATOCRIT 35.9 % (32.4-45.2); HEMOGLOBIN 11.8 GM/dL (10.7-15.3); LYMPH % 27.2 % (8-40); MCH 25.4 pg (25.7-33.7); MCHC 32.9 g/dl (32.0-36.0); MEAN CELL VOLUME 77.4 fl (80-96); MEAN PLT VOLUME 11.3 fl (7.5-11.1); MONO % 3.3 % (3.8-10.2); NEUT % 68.3 % (42.8-82.8); PLATELET COUNT 99 K/MM3 (134-434); RBC 4.64 M/mm3 (3.60-5.2); RDW 15.6 % (11.6-15.6); WHITE BLOOD COUNT 2.8 K/mm3 (4.0-10.0)
[2020-09-20 05:31] LABS: HEMATOCRIT 32.9 % (32.4-45.2); HEMOGLOBIN 10.7 GM/dL (10.7-15.3); MCH 25.8 pg (25.7-33.7); MCHC 32.6 g/dl (32.0-36.0); MEAN PLT VOLUME 11.4 fl (7.5-11.1); PLATELET COUNT 96 K/MM3 (134-434); RBC 4.16 M/mm3 (3.60-5.2); RDW 15.7 % (11.6-15.6); WHITE BLOOD COUNT 2.8 K/mm3 (4.0-10.0)
[2020-09-20 06:24] LABS: PH,URINE 6.5 (5.0-8.0); URINE APPEARANCE CLEAR; URINE BILIRUBIN NEGATIVE (NEGATIVE); URINE COLOR YELLOW; URINE GLUCOSE (UA) NEGATIVE (NEGATIVE); URINE KETONE 2+ (NEGATIVE); URINE LEUK ESTERASE NEGATIVE (NEGATIVE); URINE NITRITE NEGATIVE (NEGATIVE); URINE PROTEIN NEGATIVE (NEGATIVE)
[2020-09-20 11:06] VITALS: BP 129/62; PULSE 84; TEMP 98
== END 2020-09-20 12:00 | disposition short-term general hospital (02) ==
LOC: JER 02:08 → JERBED 06:12 → INTOOBSV 06:12 → UNDOADMOB 06:12 → JERBED 08:35 → JLDR 09:38
PROVIDERS: ADMIT Obstetrics & Gynecology; ATTEND Obstetrics & Gynecology
PROC: 3E033GC Introduction of Other Therapeutic Substance into Peripheral Vein, Percutaneous Approach (ICD-10-PCS; principal; 2020-09-20)
PROC: 3E0337Z Introduction of Electrolytic and Water Balance Substance into Peripheral Vein, Percutaneous Approach (ICD-10-PCS; 2020-09-20)
DX: O99.513 Diseases of the respiratory system complicating pregnancy, third trimester (principal); R06.02 Shortness of breath; R05 Cough; M54.9 Dorsalgia, unspecified; R11.2 Nausea with vomiting, unspecified; R63.0 Anorexia; R00.1 Bradycardia, unspecified; D64.9 Anemia, unspecified; I10 Essential (primary) hypertension; F17.210 Nicotine dependence, cigarettes, uncomplicated; R51.9 Headache, unspecified; D69.6 Thrombocytopenia, unspecified
CPT/HCPCS: 36415; 80053; 81003; 82728; 83615; 85025; 85027; 85651; 86140; 93005; 93010; 96361; 96374; 99285-25; C9803; G0378; U0003

== ENCOUNTER 2020-10-05 13:40 | Emergency (ER) | payer OTHER ==
[2020-10-05 14:00] VITALS: TEMP 98.1; BMI 48.6
[2020-10-05 16:03] LABS: BASO % 0.6 % (0-2.0); EOS % 1.8 % (0-4.5); HEMATOCRIT 33.7 % (32.4-45.2); HEMOGLOBIN 10.7 GM/dL (10.7-15.3); LYMPH % 28.5 % (8-40); MCH 25.3 pg (25.7-33.7); MCHC 31.7 g/dl (32.0-36.0); MEAN CELL VOLUME 79.6 fl (80-96); MEAN PLT VOLUME 10.3 fl (7.5-11.1); MONO % 5.7 % (3.8-10.2); NEUT % 63.4 % (42.8-82.8); PLATELET COUNT 210 K/MM3 (134-434); RBC 4.23 M/mm3 (3.60-5.2); RDW 16.8 % (11.6-15.6)
[2020-10-05 16:17] LABS: POTASSIUM 4.3 mmol/L (3.5-5.1)
[2020-10-05 16:19] LABS: BLOOD UREA NITROGEN 9.3 mg/dL (7-18); CALCIUM 9.1 mg/dL (8.5-10.1)
[2020-10-05 16:20] LABS: ALBUMIN 3.1 g/dl (3.4-5.0); MAGNESIUM 2.2 mg/dL (1.8-2.4)
[2020-10-05 16:23] LABS: CREATININE 0.9 mg/dL (0.55-1.3)
[2020-10-05 16:24] LABS: BILIRUBIN,TOTAL 0.4 mg/dL (0.2-1); TOT PROT 7.1 g/dl (6.4-8.2)
[2020-10-05] MEDS ORDERED: SODIUM CHLORIDE 0.45% 1,000 ML IV ONE (16:43)
[2020-10-05] MEDS ORDERED: METOCLOPRAMIDE HCL INJECTION 10 MG/2 ML VIAL IVPB ONE (16:44)
[2020-10-05 16:57] LABS: EPI CELLS >36 /uL (0-25.1); HYALINE CASTS 1 /uL (0-3.1); URINE APPEARANCE CLEAR; URINE BACTERIA 1054 /uL (0-1359); URINE BILIRUBIN NEGATIVE (NEGATIVE); URINE COLOR YELLOW; URINE GLUCOSE (UA) NEGATIVE (NEGATIVE); URINE KETONE NEGATIVE (NEGATIVE); URINE LEUK ESTERASE 1+ (NEGATIVE); URINE NITRITE NEGATIVE (NEGATIVE); URINE PROTEIN NEGATIVE (NEGATIVE); URINE WBC 47 /uL (0-25.8)
[2020-10-05] MEDS ORDERED: METOCLOPRAMIDE HCL INJECTION 10 MG/2 ML VIAL ONE (16:57)
[2020-10-05 16:59] LABS: INR 1.06 (0.83-1.09)
[2020-10-05 17:02] LABS: ACTIVATED PTT 30.3 SECONDS (25.2-36.5)
[2020-10-05] MEDS ORDERED: ACETAMINOPHEN 325 MG TABLET (FP) PO ONE (17:48)
[2020-10-05 18:08] VITALS: BP 128/78; PULSE 70
[2020-10-05] MEDS ORDERED: ACETAMINOPHEN 325 MG TABLET (FP) ONE (18:08)
[2020-10-05] MEDS ORDERED: ACETAMINOPHEN INJECTION 100 ML IVPB ONE (18:09)
[2020-10-05] MEDS ORDERED: ACETAMINOPHEN 1000 MG/100 ML VIAL (NON FORMULARY) IVPB ONE (18:09)
[2020-10-05 18:58] LABS: POTASSIUM 4.1 mmol/L (3.5-5.1)
[2020-10-05 18:59] LABS: CALCIUM 8.8 mg/dL (8.5-10.1)
[2020-10-05 19:00] LABS: BLOOD UREA NITROGEN 9.4 mg/dL (7-18)
[2020-10-05 19:03] LABS: CREATININE 0.8 mg/dL (0.55-1.3)
[2020-10-05 19:17] LABS: PH,URINE 7.5 (5.0-8.0); URINE APPEARANCE CLEAR; URINE BILIRUBIN NEGATIVE (NEGATIVE); URINE COLOR YELLOW; URINE GLUCOSE (UA) NEGATIVE (NEGATIVE); URINE KETONE NEGATIVE (NEGATIVE); URINE LEUK ESTERASE 2+ (NEGATIVE); URINE NITRITE NEGATIVE (NEGATIVE); URINE PROTEIN NEGATIVE (NEGATIVE)
[2020-10-05 22:46] LABS: EPI CELLS 59.9 /uL (0-25.1); HYALINE CASTS 1.02 /uL (0-3.1); URINE BACTERIA 2116.5 /uL (0-1359); URINE RBC 260.9 /uL (0-23.9)
== END 2020-10-05 19:08 | disposition home or self-care (01) ==
LOC: JER 13:40
PROC: 3E0333Z Introduction of Anti-inflammatory into Peripheral Vein, Percutaneous Approach (ICD-10-PCS; principal; 2020-10-05)
PROC: 3E033GC Introduction of Other Therapeutic Substance into Peripheral Vein, Percutaneous Approach (ICD-10-PCS; 2020-10-05)
DX: R51.9 Headache, unspecified (principal)
CPT/HCPCS: 36415; 70450-TC; 80048; 80053; 81003; 83735; 85025; 85610; 85730; 87086; 93005; 93010; 99285-25; J0131

== ENCOUNTER 2020-10-30 16:26 | Emergency (ER) | payer OTHER ==
[2020-10-30 16:53] VITALS: BP 110/67; PULSE 58; TEMP 99; BMI 47.8
[2020-10-30 18:41] LABS: BASO % 0.9 % (0-2.0); EOS % 1.7 % (0-4.5); HEMATOCRIT 36.7 % (32.4-45.2); LYMPH % 33.8 % (8-40); MCH 25.4 pg (25.7-33.7); MCHC 32.7 g/dl (32.0-36.0); MEAN CELL VOLUME 77.7 fl (80-96); MEAN PLT VOLUME 11.8 fl (7.5-11.1); MONO % 3.8 % (3.8-10.2); NEUT % 59.8 % (42.8-82.8); PLATELET COUNT 181 K/MM3 (134-434); RBC 4.73 M/mm3 (3.60-5.2); RDW 16.2 % (11.6-15.6); WHITE BLOOD COUNT 7.2 K/mm3 (4.0-10.0)
[2020-10-30 18:49] LABS: EPI CELLS >36 /uL (0-25.1); HYALINE CASTS 3 /uL (0-3.1); PH,URINE 6.5 (5.0-8.0); URINE APPEARANCE TURBID; URINE BACTERIA 501 /uL (0-1359); URINE BILIRUBIN NEGATIVE (NEGATIVE); URINE COLOR RED; URINE GLUCOSE (UA) NEGATIVE (NEGATIVE); URINE KETONE NEGATIVE (NEGATIVE); URINE LEUK ESTERASE 1+ (NEGATIVE); URINE NITRITE NEGATIVE (NEGATIVE); URINE PROTEIN 2+ (NEGATIVE); URINE WBC 183 /uL (0-25.8)
[2020-10-30 18:58] LABS: ALBUMIN 3.5 g/dl (3.4-5.0); BLOOD UREA NITROGEN 15.4 mg/dL (7-18); CALCIUM 8.8 mg/dL (8.5-10.1)
[2020-10-30 19:01] LABS: CREATININE 0.9 mg/dL (0.55-1.3)
[2020-10-30 19:03] LABS: BILIRUBIN,TOTAL 0.1 mg/dL (0.2-1); TOT PROT 7.3 g/dl (6.4-8.2)
[2020-10-30 19:19] LABS: HCG,QUALITATIVE URINE Negative
[2020-10-30 20:46] LABS: URINE RBC 1698.3 /uL (0-23.9); YEAST NEGATIVE (NEGATIVE)
== END 2020-10-30 19:32 | disposition home or self-care (01) ==
LOC: JER 16:26
DX: R42 Dizziness and giddiness (principal)
CPT/HCPCS: 36415; 80053; 81003; 84703; 85025; 87086; 93005; 93010; 99284-25

== ENCOUNTER 2021-05-31 06:17 | Emergency (ER) | payer OTHER ==
[2021-05-31 06:32] VITALS: BMI 50.5
[2021-05-31] MEDS ORDERED: SODIUM CHLORIDE 1,000 ML IV STA (07:24)
[2021-05-31] MEDS ORDERED: ACETAMINOPHEN 1000 MG/100 ML VIAL (NON FORMULARY) IVPB ONE (07:24)
[2021-05-31 09:40] LABS: EPI CELLS 13 /uL (0-25.1); HYALINE CASTS 10 /uL (0-3.1); URINE APPEARANCE CLOUDY; URINE BACTERIA >9,000 /uL (0-1359); URINE BILIRUBIN NEGATIVE (NEGATIVE); URINE COLOR YELLOW; URINE GLUCOSE (UA) NEGATIVE (NEGATIVE); URINE KETONE NEGATIVE (NEGATIVE); URINE LEUK ESTERASE 2+ (NEGATIVE); URINE NITRITE NEGATIVE (NEGATIVE); URINE PROTEIN TRACE (NEGATIVE); URINE RBC 33 /uL (0-23.9); URINE UROBILINOGEN 0.2 mg/dL (0.2-1.0); URINE WBC 664 /uL (0-25.8)
[2021-05-31 09:47] LABS: HCG,QUALITATIVE URINE Negative
[2021-05-31] MEDS ORDERED: ACETAMINOPHEN INJECTION 100 ML IVPB ONE (09:52)
[2021-05-31 09:55] LABS: EOS % 1.2 % (0-4.5); HEMATOCRIT 34.4 % (32.4-45.2); HEMOGLOBIN 11.3 GM/dL (10.7-15.3); LYMPH % 22.3 % (8-40); MCH 24.2 pg (25.7-33.7); MCHC 32.9 g/dl (32.0-36.0); MEAN CELL VOLUME 73.4 fl (80-96); MEAN PLT VOLUME 11.4 fl (7.5-11.1); MONO % 6.3 % (3.8-10.2); NEUT % 69.2 % (42.8-82.8); PLATELET COUNT 168 10^3/uL (134-434); RBC 4.68 M/mm3 (3.60-5.2); RDW 17.8 % (11.6-15.6); WHITE BLOOD COUNT 7.5 K/mm3 (4.0-10.0)
[2021-05-31 10:02] LABS: INR 1.18 (0.83-1.09); PROTHROMBIN TIME (PATIENT) 14.4 SEC (9.7-13.0)
[2021-05-31 10:17] LABS: ALBUMIN 3.7 g/dl (3.4-5.0); BLOOD UREA NITROGEN 11.9 mg/dL (7-18); CALCIUM 8.7 mg/dL (8.5-10.1)
[2021-05-31 10:21] LABS: CREATININE 0.7 mg/dL (0.55-1.3)
[2021-05-31 10:23] LABS: TOT PROT 7.6 g/dl (6.4-8.2)
[2021-05-31 10:33] LABS: BILIRUBIN,TOTAL 0.2 mg/dL (0.2-1)
[2021-05-31] MEDS ORDERED: CEFTRIAXONE 1,000 MG in DEXTROSE 5%-WATER - 50 ML IVPB ONE (12:13)
[2021-05-31] MEDS ORDERED: CEFTRIAXONE 1 GM/50 ML BAG ONE (12:20)
[2021-05-31 13:10] VITALS: BP 118/61; PULSE 67; TEMP 98.8
== END 2021-05-31 13:35 | disposition home or self-care (01) ==
LOC: JER 06:17
PROC: 3E0333Z Introduction of Anti-inflammatory into Peripheral Vein, Percutaneous Approach (ICD-10-PCS; principal; 2021-05-31)
PROC: 3E03329 Introduction of Other Anti-infective into Peripheral Vein, Percutaneous Approach (ICD-10-PCS; 2021-05-31)
PROC: 3E0337Z Introduction of Electrolytic and Water Balance Substance into Peripheral Vein, Percutaneous Approach (ICD-10-PCS; 2021-05-31)
DX: N10 Acute pyelonephritis (principal)
CPT/HCPCS: 36415; 74176-TC; 76817-TC; 80053; 81003; 84703; 85025; 85610; 87086; 87186; 96361; 96374; 96375; 99285-25; J0131

== ENCOUNTER 2021-06-01 21:37 | Emergency (ER) | payer OTHER ==
[2021-06-01 21:46] VITALS: BP 98/72; PULSE 88; BMI 50.5
[2021-06-02 00:26] LABS: BASO % 0.7 % (0-2.0); EOS % 0.5 % (0-4.5); HEMATOCRIT 35.4 % (32.4-45.2); HEMOGLOBIN 11.5 GM/dL (10.7-15.3); LYMPH % 28.9 % (8-40); MCH 23.4 pg (25.7-33.7); MCHC 32.5 g/dl (32.0-36.0); MEAN PLT VOLUME 10.8 fl (7.5-11.1); MONO % 9.2 % (3.8-10.2); NEUT % 60.7 % (42.8-82.8); PLATELET COUNT 150 10^3/uL (134-434); RBC 4.91 M/mm3 (3.60-5.2); RDW 17.7 % (11.6-15.6); WHITE BLOOD COUNT 4.4 K/mm3 (4.0-10.0)
[2021-06-02] MEDS ORDERED: CEFTRIAXONE 1,000 MG in DEXTROSE 5%-WATER - 50 ML IVPB ONE (00:46)
[2021-06-02] MEDS ORDERED: ACETAMINOPHEN 500 MG TABLET (FP) PO ONE (00:46)
[2021-06-02] MEDS ORDERED: SODIUM CHLORIDE 1,000 ML IV STA (00:46)
[2021-06-02 00:51] LABS: ALBUMIN 3.6 g/dl (3.4-5.0); BLOOD UREA NITROGEN 12.3 mg/dL (7-18); CALCIUM 8.7 mg/dL (8.5-10.1)
[2021-06-02 00:53] LABS: CREATININE 0.8 mg/dL (0.55-1.3)
[2021-06-02 00:56] LABS: BILIRUBIN,TOTAL 0.4 mg/dL (0.2-1); TOT PROT 7.6 g/dl (6.4-8.2)
[2021-06-02 01:06] LABS: EPI CELLS 20 /uL (0-25.1); HYALINE CASTS 5 /uL (0-3.1); PH,URINE 5.5 (5.0-8.0); URINE APPEARANCE CLOUDY; URINE BACTERIA 16 /uL (0-1359); URINE BILIRUBIN NEGATIVE (NEGATIVE); URINE COLOR YELLOW; URINE GLUCOSE (UA) NEGATIVE (NEGATIVE); URINE KETONE NEGATIVE (NEGATIVE); URINE LEUK ESTERASE TRACE (NEGATIVE); URINE NITRITE NEGATIVE (NEGATIVE); URINE PROTEIN TRACE (NEGATIVE); URINE RBC 297 /uL (0-23.9); URINE WBC 113 /uL (0-25.8)
[2021-06-02] MEDS ORDERED: CEFTRIAXONE 1 GM/50 ML BAG ONE (01:06)
[2021-06-02] MEDS ORDERED: ACETAMINOPHEN 500 MG TABLET (FP) ONE (01:31)
[2021-06-02 02:46] VITALS: TEMP 98
== END 2021-06-02 03:00 | disposition home or self-care (01) ==
LOC: JER 21:37
PROC: 3E03329 Introduction of Other Anti-infective into Peripheral Vein, Percutaneous Approach (ICD-10-PCS; principal; 2021-06-01)
PROC: 3E0337Z Introduction of Electrolytic and Water Balance Substance into Peripheral Vein, Percutaneous Approach (ICD-10-PCS; 2021-06-01)
DX: N10 Acute pyelonephritis (principal)
CPT/HCPCS: 36415; 80053; 81003; 84703; 85025; 87040; 87086; 87186; 99284-25

== ENCOUNTER 2021-08-31 12:48 | Emergency (ER) | payer OTHER ==
[2021-08-31 13:31] VITALS: BP 118/80; PULSE 65; TEMP 97.8; BMI 52.2
[2021-08-31 14:29] LABS: URINE APPEARANCE CLEAR; URINE BILIRUBIN NEGATIVE (NEGATIVE); URINE COLOR YELLOW; URINE GLUCOSE (UA) NEGATIVE (NEGATIVE); URINE KETONE NEGATIVE (NEGATIVE); URINE LEUK ESTERASE NEGATIVE (NEGATIVE); URINE NITRITE NEGATIVE (NEGATIVE); URINE PROTEIN NEGATIVE (NEGATIVE)
== END 2021-08-31 14:41 | disposition home or self-care (01) ==
LOC: JERFT 12:48 → JER 12:48 → JERFT 14:41
DX: R35.0 Frequency of micturition (principal)
CPT/HCPCS: 81003; 84703; 87086; 87186; 99283-25

== ENCOUNTER 2021-09-21 00:23 | Emergency (ER) | payer OTHER ==
[2021-09-21 01:11] VITALS: TEMP 98.2; BMI 51.3
[2021-09-21] MEDS ORDERED: ACETAMINOPHEN 500 MG TABLET (FP) PO ONE (02:15)
[2021-09-21] MEDS ORDERED: ACETAMINOPHEN 500 MG TABLET (FP) ONE (02:30)
[2021-09-21 03:54] VITALS: BP 125/76; PULSE 73
== END 2021-09-21 04:10 | disposition home or self-care (01) ==
LOC: JER 00:23
DX: R51.9 Headache, unspecified (principal); R53.81 Other malaise
CPT/HCPCS: 99283-25

== ENCOUNTER 2022-02-14 05:30 | Emergency (ER) | payer OTHER ==
[2022-02-14 05:44] VITALS: BP 128/89; PULSE 79; TEMP 98; BMI 52.2
[2022-02-14] MEDS ORDERED: DEXAMETHASONE SOD PHOSPHATE 10 MG/1 ML VIAL ONE (06:02)
[2022-02-14] MEDS ORDERED: diphenhydrAMINE HCL 25 MG CAPSULE (FP) PO ONE ×2 (06:02→06:04)
[2022-02-14] MEDS ORDERED: DEXAMETHASONE SOD PHOSPHATE 10 MG/1 ML VIAL IVPUSH ONE (06:04)
== END 2022-02-14 06:36 | disposition home or self-care (01) ==
LOC: JER 05:30
PROC: 3E033GC Introduction of Other Therapeutic Substance into Peripheral Vein, Percutaneous Approach (ICD-10-PCS; principal; 2022-02-14)
DX: R22.0 Localized swelling, mass and lump, head (principal); T78.40XA Allergy, unspecified, initial encounter
CPT/HCPCS: 99284-25; J1100

== ENCOUNTER 2022-03-11 13:06 | Emergency (ER) | payer OTHER ==
[2022-03-11 13:14] VITALS: BP 117/73; PULSE 80; TEMP 98; BMI 43.2
[2022-03-11] MEDS ORDERED: METOCLOPRAMIDE HCL INJECTION 10 MG/2 ML VIAL IVPB STA (14:01)
[2022-03-11] MEDS ORDERED: SODIUM CHLORIDE 1,000 ML IV ONE (14:01)
[2022-03-11] MEDS ORDERED: METOCLOPRAMIDE HCL INJECTION 10 MG/2 ML VIAL ONE (14:17)
[2022-03-11 14:31] LABS: BASO % 1.1 % (0-2.0); HEMATOCRIT 34.1 % (32.4-45.2); HEMOGLOBIN 11.1 GM/dL (10.7-15.3); LYMPH % 26.9 % (8-40); MCH 23.4 pg (25.7-33.7); MCHC 32.6 g/dl (32.0-36.0); MEAN PLT VOLUME 10.8 fl (7.5-11.1); MONO % 3.7 % (3.8-10.2); NEUT % 66.3 % (42.8-82.8); PLATELET COUNT 184 10^3/uL (134-434); RBC 4.74 M/mm3 (3.60-5.2); RDW 17.7 % (11.6-15.6); WHITE BLOOD COUNT 6.5 K/mm3 (4.0-10.0)
[2022-03-11 14:50] LABS: ALBUMIN 3.3 g/dl (3.4-5.0); BLOOD UREA NITROGEN 10.2 mg/dL (7-18); CALCIUM 8.7 mg/dL (8.5-10.1); MAGNESIUM 2.4 mg/dL (1.8-2.4)
[2022-03-11 14:53] LABS: CREATININE 0.8 mg/dL (0.55-1.3)
[2022-03-11 14:55] LABS: BILIRUBIN,TOTAL 0.5 mg/dL (0.2-1); TOT PROT 7.1 g/dl (6.4-8.2)
[2022-03-11 16:19] LABS: EPI CELLS 13 /uL (0-25.1); HYALINE CASTS 1 /uL (0-3.1); PH,URINE 8.5 (5.0-8.0); URINE APPEARANCE CLOUDY; URINE BACTERIA >9,000 /uL (0-1359); URINE BILIRUBIN NEGATIVE (NEGATIVE); URINE COLOR RED; URINE GLUCOSE (UA) NEGATIVE (NEGATIVE); URINE KETONE TRACE (NEGATIVE); URINE LEUK ESTERASE TRACE (NEGATIVE); URINE NITRITE NEGATIVE (NEGATIVE); URINE PROTEIN 1+ (NEGATIVE); URINE RBC 7530 /uL (0-23.9); URINE WBC 21 /uL (0-25.8)
== END 2022-03-11 16:05 | disposition home or self-care (01) ==
LOC: JER 13:06
PROC: 3E033GC Introduction of Other Therapeutic Substance into Peripheral Vein, Percutaneous Approach (ICD-10-PCS; principal; 2022-03-11)
PROC: 3E0337Z Introduction of Electrolytic and Water Balance Substance into Peripheral Vein, Percutaneous Approach (ICD-10-PCS; 2022-03-11)
DX: R42 Dizziness and giddiness (principal); G44.219 Episodic tension-type headache, not intractable
CPT/HCPCS: 36415; 80053; 81003; 83735; 84703; 85025; 87086; 87186; 99284-25

== ENCOUNTER 2022-03-27 08:18 | Emergency (ER) | payer OTHER ==
[2022-03-27 08:23] VITALS: BP 101/72; PULSE 74; TEMP 98.1; BMI 52.2
[2022-03-27] MEDS ORDERED: METOCLOPRAMIDE HCL INJECTION 10 MG/2 ML VIAL IVPUSH ONE (09:21)
[2022-03-27] MEDS ORDERED: SODIUM CHLORIDE 0.9% 500 ML INFUS.BAG IV ONE (09:21)
[2022-03-27] MEDS ORDERED: KETOROLAC TROMETHAMINE 30 MG/1 ML VIAL IVPB ONE (09:21)
[2022-03-27] MEDS ORDERED: KETOROLAC TROMETHAMINE 30 MG/1 ML VIAL ONE (09:29)
[2022-03-27] MEDS ORDERED: METOCLOPRAMIDE HCL INJECTION 10 MG/2 ML VIAL ONE (09:29)
== END 2022-03-27 10:50 | disposition left against medical advice (07) ==
LOC: JER 08:18
PROC: 3E0333Z Introduction of Anti-inflammatory into Peripheral Vein, Percutaneous Approach (ICD-10-PCS; principal; 2022-03-27)
PROC: 3E033GC Introduction of Other Therapeutic Substance into Peripheral Vein, Percutaneous Approach (ICD-10-PCS; 2022-03-27)
DX: R51.9 Headache, unspecified (principal)
CPT/HCPCS: 99284-25

== ENCOUNTER 2022-05-27 23:38 | Emergency (ER) | payer OTHER ==
[2022-05-27 23:48] VITALS: BP 144/90; PULSE 95; RESP 20; TEMP 102.2; BMI 52.2
[2022-05-28] MEDS ORDERED: ACETAMINOPHEN 325 MG TABLET (FP) PO ONE (01:06)
[2022-05-28] MEDS ORDERED: CEFTRIAXONE 1,000 MG in DEXTROSE 5%-WATER - 50 ML IVPB ONE (01:34)
[2022-05-28 02:17] LABS: EPI CELLS 17 /uL (0-25.1); HYALINE CASTS 21 /uL (0-3.1); PH,URINE 6.5 (5.0-8.0); URINE APPEARANCE CLOUDY; URINE BACTERIA 8603 /uL (0-1359); URINE BILIRUBIN NEGATIVE (NEGATIVE); URINE COLOR YELLOW; URINE GLUCOSE (UA) NEGATIVE (NEGATIVE); URINE KETONE NEGATIVE (NEGATIVE); URINE LEUK ESTERASE 3+ (NEGATIVE); URINE NITRITE NEGATIVE (NEGATIVE); URINE PROTEIN TRACE (NEGATIVE); URINE RBC 41 /uL (0-23.9); URINE WBC 847 /uL (0-25.8)
[2022-05-28] MEDS ORDERED: CEPHALEXIN MONOHYDRATE 500 MG CAPSULE (UD) PO ONE (02:45)
[2022-05-28] MEDS ORDERED: ACETAMINOPHEN 325 MG TABLET (FP) ONE (02:48)
[2022-05-28] MEDS ORDERED: CEPHALEXIN MONOHYDRATE 500 MG CAPSULE (UD) ONE (02:48)
[2022-05-28 02:50] LABS: HEMATOCRIT 35.1 % (32.4-45.2); HEMOGLOBIN 11.5 GM/dL (10.7-15.3); MCH 23.8 pg (25.7-33.7); MCHC 32.7 g/dl (32.0-36.0); MEAN CELL VOLUME 72.8 fl (80-96); MEAN PLT VOLUME 10.6 fl (7.5-11.1); PLATELET COUNT 115 10^3/uL (134-434); RBC 4.82 M/mm3 (3.60-5.2); RDW 18.6 % (11.6-15.6)
[2022-05-28 03:12] LABS: CALCIUM 9.1 mg/dL (8.5-10.1)
[2022-05-28 03:13] LABS: ALBUMIN 3.5 g/dl (3.4-5.0); BLOOD UREA NITROGEN 11.1 mg/dL (7-18)
[2022-05-28 03:16] LABS: CREATININE 0.9 mg/dL (0.55-1.3)
[2022-05-28 03:17] LABS: BILIRUBIN,TOTAL 0.2 mg/dL (0.2-1); TOT PROT 7.5 g/dl (6.4-8.2)
[2022-05-28 04:24] LABS: WHITE BLOOD COUNT 10.6 K/mm3 (4.0-10.0)
[2022-05-28 08:04] LABS: ANISOCYTOSIS 3+; MACROCYTOSIS 0; OVALOCYTE 1+
== END 2022-05-28 05:45 | disposition home or self-care (01) ==
LOC: JER 23:38
DX: N39.0 Urinary tract infection, site not specified (principal)
CPT/HCPCS: 36415; 76775-TC; 80053; 81003; 84703; 85025; 87086; 87186; 99284-25

== ENCOUNTER 2022-06-30 21:44 | Emergency (ER) | payer OTHER ==
[2022-06-30 21:53] VITALS: BP 111/76; PULSE 77; RESP 18; TEMP 98.2; BMI 53.6
[2022-06-30] MEDS ORDERED: ACETAMINOPHEN 1000 MG/100 ML BAG IVPB ONE (22:21)
[2022-06-30] MEDS ORDERED: FAMOTIDINE 20 MG/50 ML IVPB 20 MG/50 ML MG IVPB ONE ×2 (22:21→22:43)
[2022-06-30] MEDS ORDERED: MAG HYDROX/AL HYDROX/SIMETH 30 ML UNIT-DOSE CUP PO ONE (22:21)
[2022-06-30] MEDS ORDERED: ALBUTEROL SO4 2.5/IPRATROPIUM 0.5 INH SOL 3 ML VIAL.NEB. NEB ONE (22:41)
[2022-06-30] MEDS ORDERED: NITROGLYCERIN 2% OINTMENT - 1GM PACKET TD ONE (22:41)
[2022-06-30] MEDS ORDERED: methylPREDNISolone NA SUCC 125 MG/2 ML VIAL ONE (22:42)
[2022-06-30] MEDS ORDERED: ACETAMINOPHEN INJECTION 100 ML IVPB ONE (22:43)
[2022-06-30] MEDS ORDERED: MAG HYDROX/AL HYDROX/SIMETH 30 ML UNIT-DOSE CUP ONE (22:43)
[2022-06-30 22:57] LABS: BASO % 0.5 % (0-2.0); EOS % 3.8 % (0-4.5); HEMATOCRIT 36.5 % (32.4-45.2); HEMOGLOBIN 11.9 GM/dL (10.7-15.3); LYMPH % 45.4 % (8-40); MCH 24.1 pg (25.7-33.7); MCHC 32.5 g/dl (32.0-36.0); MEAN CELL VOLUME 74.1 fl (80-96); MEAN PLT VOLUME 11.3 fl (7.5-11.1); MONO % 4.6 % (3.8-10.2); NEUT % 45.7 % (42.8-82.8); PLATELET COUNT 150 10^3/uL (134-434); RBC 4.93 M/mm3 (3.60-5.2); RDW 17.7 % (11.6-15.6); WHITE BLOOD COUNT 6.2 K/mm3 (4.0-10.0)
[2022-06-30 23:16] LABS: CALCIUM 8.7 mg/dL (8.5-10.1)
[2022-06-30 23:17] LABS: ALBUMIN 3.5 g/dl (3.4-5.0)
[2022-06-30 23:20] LABS: CREATININE 0.8 mg/dL (0.55-1.3)
[2022-06-30 23:21] LABS: TOT PROT 7.3 g/dl (6.4-8.2)
[2022-06-30 23:22] LABS: BILIRUBIN,TOTAL 0.2 mg/dL (0.2-1)
== END 2022-07-01 00:49 | disposition home or self-care (01) ==
LOC: JER 21:44
PROC: 3E0333Z Introduction of Anti-inflammatory into Peripheral Vein, Percutaneous Approach (ICD-10-PCS; principal; 2022-06-30)
PROC: 3E033GC Introduction of Other Therapeutic Substance into Peripheral Vein, Percutaneous Approach (ICD-10-PCS; 2022-06-30)
DX: K80.80 Other cholelithiasis without obstruction (principal)
CPT/HCPCS: 36415; 76705-TC; 80053; 83690; 84484; 84703; 85025; 93005; 93010; 99285-25

== ENCOUNTER 2022-11-22 08:44 | Emergency (ER) | payer OTHER ==
[2022-11-22 08:53] VITALS: BP 118/65; PULSE 78; RESP 20; TEMP 98.6; BMI 53.3
[2022-11-22 10:33] LABS: EPI CELLS 25 /uL (0-25.1); HCG,QUALITATIVE URINE Positive; HYALINE CASTS 1 /uL (0-3.1); PH,URINE 5.5 (5.0-8.0); URINE APPEARANCE CLEAR; URINE BACTERIA 477 /uL (0-1359); URINE BILIRUBIN NEGATIVE (NEGATIVE); URINE COLOR YELLOW; URINE GLUCOSE (UA) NEGATIVE (NEGATIVE); URINE KETONE NEGATIVE (NEGATIVE); URINE LEUK ESTERASE NEGATIVE (NEGATIVE); URINE NITRITE NEGATIVE (NEGATIVE); URINE PROTEIN TRACE (NEGATIVE); URINE WBC 50 /uL (0-25.8)
[2022-11-22 10:42] LABS: URINE RBC 55.5 /uL (0-23.9)
[2022-11-22 12:07] LABS: BASO % 0.3 % (0-2.0); EOS % 1.7 % (0-4.5); HEMATOCRIT 36.9 % (32.4-45.2); HEMOGLOBIN 11.8 GM/dL (10.7-15.3); LYMPH % 33.4 % (8-40); MCH 24.2 pg (25.7-33.7); MEAN CELL VOLUME 75.6 fl (80-96); MEAN PLT VOLUME 11.2 fl (7.5-11.1); MONO % 5.1 % (3.8-10.2); NEUT % 59.5 % (42.8-82.8); PLATELET COUNT 169 10^3/uL (134-434); RBC 4.88 M/mm3 (3.60-5.2); RDW 16.9 % (11.6-15.6); WHITE BLOOD COUNT 6.8 K/mm3 (4.0-10.0)
[2022-11-22 12:32] LABS: ALBUMIN 3.7 g/dl (3.4-5.0); BLOOD UREA NITROGEN 13.1 mg/dL (7-18); CALCIUM 9.1 mg/dL (8.5-10.1)
[2022-11-22 12:35] LABS: CREATININE 0.7 mg/dL (0.55-1.3)
[2022-11-22 12:37] LABS: BILIRUBIN,TOTAL 0.3 mg/dL (0.2-1); TOT PROT 7.7 g/dl (6.4-8.2)
== END 2022-11-22 14:05 | disposition home or self-care (01) ==
LOC: JERFT 08:44 → JER 08:44 → JERFT 14:05
DX: N93.8 Other specified abnormal uterine and vaginal bleeding (principal)
CPT/HCPCS: 36415; 76817-TC; 80053; 81003; 84702; 84703; 85025; 87086; 87186; 99284-25

== ENCOUNTER 2022-12-27 10:20 | Emergency (ER) | payer OTHER ==
[2022-12-27 10:29] VITALS: BMI 51.5
[2022-12-27] MEDS ORDERED: LACTATED RINGERS SOLUTION 1000 ML INFUS.BAG IV ONE (12:31)
[2022-12-27] MEDS ORDERED: DEXTROSE 50%-WATER - 25 GM/50 ML VIAL IVPUSH ONE (13:19)
[2022-12-27 13:35] LABS: BASO % 0.5 % (0-2.0); EOS % 2.4 % (0-4.5); LYMPH % 38.2 % (8-40); MCH 23.3 pg (25.7-33.7); MCHC 31.6 g/dl (32.0-36.0); MEAN CELL VOLUME 73.9 fl (80-96); MEAN PLT VOLUME 10.6 fl (7.5-11.1); MONO % 4.7 % (3.8-10.2); NEUT % 54.2 % (42.8-82.8); PLATELET COUNT 162 10^3/uL (134-434); RBC 5.14 M/mm3 (3.60-5.2); WHITE BLOOD COUNT 5.5 K/mm3 (4.0-10.0)
[2022-12-27 13:36] LABS: PH,URINE 5.5 (5.0-8.0); URINE APPEARANCE CLEAR; URINE BILIRUBIN NEGATIVE (NEGATIVE); URINE COLOR YELLOW; URINE GLUCOSE (UA) NEGATIVE (NEGATIVE); URINE KETONE NEGATIVE (NEGATIVE); URINE LEUK ESTERASE NEGATIVE (NEGATIVE); URINE NITRITE NEGATIVE (NEGATIVE); URINE PROTEIN NEGATIVE (NEGATIVE); URINE UROBILINOGEN 0.2 mg/dL (0.2-1.0)
[2022-12-27 13:48] LABS: CALCIUM 8.9 mg/dL (8.5-10.1)
[2022-12-27 13:49] LABS: ALBUMIN 3.5 g/dl (3.4-5.0); BLOOD UREA NITROGEN 14.2 mg/dL (7-18)
[2022-12-27 13:51] LABS: CREATININE 0.7 mg/dL (0.55-1.3)
[2022-12-27 13:53] LABS: BILIRUBIN,TOTAL 0.2 mg/dL (0.2-1); TOT PROT 7.4 g/dl (6.4-8.2)
[2022-12-27 16:59] VITALS: BP 121/69; PULSE 73; RESP 20; TEMP 98.1
== END 2022-12-27 16:59 | disposition home or self-care (01) ==
LOC: JER 10:20
DX: R42 Dizziness and giddiness (principal)
CPT/HCPCS: 0241U-QW; 36415; 80053; 81003; 82962; 84484; 84703; 85025; 86850; 86900; 86901; 93005; 93010; 99283-25

== ENCOUNTER 2023-06-30 15:34 | Emergency (ER) | payer OTHER ==
[2023-06-30 15:45] VITALS: BP 147/78; PULSE 86; RESP 20; TEMP 98; BMI 52.2
[2023-06-30] MEDS ORDERED: KETOROLAC TROMETHAMINE 30 MG/1 ML VIAL IVPUSH ONE (17:06)
[2023-06-30] MEDS ORDERED: ACETAMINOPHEN 500 MG TABLET (FP) PO ONE (17:10)
[2023-06-30] MEDS ORDERED: ACETAMINOPHEN 325 MG TABLET (FP) ONE (17:32)
[2023-06-30 17:43] LABS: PH,URINE 6.5 (5.0-8.0); URINE APPEARANCE CLOUDY; URINE BILIRUBIN NEGATIVE (NEGATIVE); URINE COLOR YELLOW; URINE GLUCOSE (UA) NEGATIVE (NEGATIVE); URINE KETONE TRACE (NEGATIVE); URINE LEUK ESTERASE NEGATIVE (NEGATIVE); URINE NITRITE NEGATIVE (NEGATIVE); URINE PROTEIN NEGATIVE (NEGATIVE)
[2023-06-30 17:45] LABS: HCG,QUALITATIVE URINE Negative
[2023-06-30] MEDS ORDERED: KETOROLAC TROMETHAMINE 30 MG/1 ML VIAL IM ONE (18:35)
[2023-06-30] MEDS ORDERED: KETOROLAC TROMETHAMINE 30 MG/1 ML VIAL ONE (18:52)
== END 2023-06-30 20:13 | disposition left against medical advice (07) ==
LOC: JER 15:34
PROC: 3E0233Z Introduction of Anti-inflammatory into Muscle, Percutaneous Approach (ICD-10-PCS; principal; 2023-06-30)
DX: R07.9 Chest pain, unspecified (principal); R10.13 Epigastric pain
CPT/HCPCS: 71046-TC-FY; 81003; 84703; 93005; 93010; 99285-25

== ENCOUNTER 2023-07-22 13:14 | Emergency (ER) | payer OTHER ==
[2023-07-22 13:30] VITALS: BP 125/72; PULSE 96; RESP 18; TEMP 98.1; BMI 53.1
[2023-07-22] MEDS ORDERED: KETOROLAC TROMETHAMINE 30 MG/1 ML VIAL IM ONE (13:51)
[2023-07-22] MEDS ORDERED: KETOROLAC TROMETHAMINE 30 MG/1 ML VIAL ONE (13:52)
== END 2023-07-22 14:23 | disposition home or self-care (01) ==
LOC: JERFT 13:14 → JER 13:14 → JERFT 14:23
PROC: 3E0233Z Introduction of Anti-inflammatory into Muscle, Percutaneous Approach (ICD-10-PCS; principal; 2023-07-22)
DX: J02.9 Acute pharyngitis, unspecified (principal)
CPT/HCPCS: 99284-25

== ENCOUNTER 2023-09-04 10:47 | Emergency (ER) | payer OTHER ==
[2023-09-04 10:57] VITALS: BP 104/50; PULSE 77; RESP 18; TEMP 98.7; BMI 52.2
[2023-09-04] MEDS ORDERED: ACETAMINOPHEN 500 MG TABLET (FP) PO ONE (12:12)
[2023-09-04] MEDS ORDERED: ACETAMINOPHEN 500 MG TABLET (FP) ONE (12:45)
[2023-09-04 13:15] LABS: HCG,QUALITATIVE URINE Positive
[2023-09-04 13:21] LABS: BASO % 0.4 % (0-2.0); EOS % 2.3 % (0-4.5); HEMATOCRIT 37.8 % (32.4-45.2); HEMOGLOBIN 12.6 GM/dL (10.7-15.3); LYMPH % 33.6 % (8-40); MCH 25.9 pg (25.7-33.7); MCHC 33.5 g/dl (32.0-36.0); MEAN CELL VOLUME 77.4 fl (80-96); MONO % 5.7 % (3.8-10.2); PLATELET COUNT 153 10^3/uL (134-434); RBC 4.88 M/mm3 (3.60-5.2); RDW 16.8 % (11.6-15.6); WHITE BLOOD COUNT 6.8 K/mm3 (4.0-10.0)
[2023-09-04 13:25] LABS: PH,URINE 5.5 (5.0-8.0); URINE APPEARANCE Clear; URINE BILIRUBIN Negative (NEGATIVE); URINE COLOR Yellow; URINE GLUCOSE (UA) Negative (NEGATIVE); URINE KETONE 1+ (NEGATIVE); URINE LEUK ESTERASE Negative (NEGATIVE); URINE NITRITE Negative (NEGATIVE); URINE PROTEIN Negative (NEGATIVE)
[2023-09-04 13:34] LABS: POTASSIUM 4.3 mmol/L (3.5-5.1)
[2023-09-04 13:37] LABS: ALBUMIN 3.2 g/dl (3.4-5.0); BLOOD UREA NITROGEN 12.7 mg/dL (7-18)
[2023-09-04 13:40] LABS: CREATININE 0.8 mg/dL (0.55-1.3)
[2023-09-04 13:41] LABS: BILIRUBIN,TOTAL 0.2 mg/dL (0.2-1); TOT PROT 7.1 g/dl (6.4-8.2)
[2023-09-04 13:50] LABS: INR 1.17 (0.83-1.09); PROTHROMBIN TIME (PATIENT) 13.5 SEC (9.7-13.0)
== END 2023-09-04 15:50 | disposition home or self-care (01) ==
LOC: JER 10:47
DX: O26.891 Other specified pregnancy related conditions, first trimester (principal); R10.30 Lower abdominal pain, unspecified; R10.2 Pelvic and perineal pain; Z3A.00 Weeks of gestation of pregnancy not specified
CPT/HCPCS: 36415; 76817-TC; 80053; 81003; 84702; 84703; 85025; 85610; 86850; 86900; 86901; 87086; 87186; 99284-25

== ENCOUNTER 2023-10-04 10:43 | Emergency (ER) | payer OTHER ==
[2023-10-04 11:28] VITALS: BMI 53.3
[2023-10-04] MEDS ORDERED: ONDANSETRON 4 MG/2 ML VIAL IVPUSH ONE (11:43)
[2023-10-04] MEDS ORDERED: FAMOTIDINE 20 MG/50 ML IVPB 20 MG/50 ML MG IVPB ONE ×2 (11:43→12:26)
[2023-10-04] MEDS ORDERED: DEXTROSE 5%-LACTATED RINGERS 1,000 ML IV SCH (11:45)
[2023-10-04] MEDS ORDERED: ONDANSETRON 4 MG/2 ML VIAL ONE (12:26)
[2023-10-04 12:37] LABS: BASO % 0.4 % (0-2.0); EOS % 2.3 % (0-4.5); HEMATOCRIT 37.3 % (32.4-45.2); HEMOGLOBIN 12.3 GM/dL (10.7-15.3); LYMPH % 28.5 % (8-40); MCH 25.7 pg (25.7-33.7); MEAN CELL VOLUME 77.9 fl (80-96); MEAN PLT VOLUME 10.4 fl (7.5-11.1); NEUT % 64.8 % (42.8-82.8); PLATELET COUNT 141 10^3/uL (134-434); RBC 4.78 M/mm3 (3.60-5.2); RDW 15.8 % (11.6-15.6); WHITE BLOOD COUNT 6.5 K/mm3 (4.0-10.0)
[2023-10-04 12:45] LABS: EPI CELLS >36 /uL (0-25.1); HYALINE CASTS 2 /uL (0-3.1); PH,URINE 5.5 (5.0-8.0); URINE APPEARANCE CLOUDY; URINE BACTERIA 3482 /uL (0-1359); URINE BILIRUBIN NEGATIVE (NEGATIVE); URINE COLOR YELLOW; URINE GLUCOSE (UA) NEGATIVE (NEGATIVE); URINE KETONE NEGATIVE (NEGATIVE); URINE LEUK ESTERASE TRACE (NEGATIVE); URINE NITRITE NEGATIVE (NEGATIVE); URINE PROTEIN NEGATIVE (NEGATIVE); URINE RBC 14 /uL (0-23.9); URINE WBC 156 /uL (0-25.8)
[2023-10-04 12:53] LABS: POTASSIUM 3.7 mmol/L (3.5-5.1)
[2023-10-04 12:55] LABS: CALCIUM 8.6 mg/dL (8.5-10.1)
[2023-10-04 12:56] LABS: ALBUMIN 2.8 g/dl (3.4-5.0)
[2023-10-04 12:59] LABS: CREATININE 0.7 mg/dL (0.55-1.3)
[2023-10-04 13:00] LABS: TOT PROT 6.8 g/dl (6.4-8.2)
[2023-10-04 13:01] LABS: BILIRUBIN,TOTAL 0.2 mg/dL (0.2-1)
[2023-10-04] MEDS ORDERED: CEFTRIAXONE 1,000 MG in DEXTROSE 5%-WATER - 50 ML IVPB ONE (13:05)
[2023-10-04] MEDS ORDERED: CEFTRIAXONE 1 GM/50 ML BAG ONE (13:25)
[2023-10-04 15:03] VITALS: BP 125/67; PULSE 79; RESP 17; TEMP 98.5
== END 2023-10-04 14:45 | disposition home or self-care (01) ==
LOC: JER 10:43
PROC: 3E03329 Introduction of Other Anti-infective into Peripheral Vein, Percutaneous Approach (ICD-10-PCS; principal; 2023-10-04)
PROC: 3E033GC Introduction of Other Therapeutic Substance into Peripheral Vein, Percutaneous Approach (ICD-10-PCS; 2023-10-04)
PROC: 3E033GC Introduction of Other Therapeutic Substance into Peripheral Vein, Percutaneous Approach (ICD-10-PCS; 2023-10-04)
DX: O26.891 Other specified pregnancy related conditions, first trimester (principal); R10.30 Lower abdominal pain, unspecified; O23.11 Infections of bladder in pregnancy, first trimester; N30.00 Acute cystitis without hematuria; O21.9 Vomiting of pregnancy, unspecified; Z3A.10 10 weeks gestation of pregnancy
CPT/HCPCS: 36415; 80053; 81003; 84702; 85025; 87086; 87186; 99284-25

== ENCOUNTER 2023-11-13 18:14 | Emergency (ER) | payer OTHER ==
[2023-11-13 18:48] VITALS: BP 131/80; PULSE 91; RESP 18; TEMP 98; BMI 53.6
[2023-11-13 19:22] LABS: BASO % 0.5 % (0-2.0); EOS % 2.3 % (0-4.5); HEMATOCRIT 36.3 % (32.4-45.2); LYMPH % 24.4 % (8-40); MCH 25.9 pg (25.7-33.7); MCHC 32.9 g/dl (32.0-36.0); MEAN CELL VOLUME 78.6 fl (80-96); MONO % 4.5 % (3.8-10.2); NEUT % 68.3 % (42.8-82.8); PLATELET COUNT 142 10^3/uL (134-434); RBC 4.62 M/mm3 (3.60-5.2); RDW 15.9 % (11.6-15.6); WHITE BLOOD COUNT 7.8 K/mm3 (4.0-10.0)
[2023-11-13 19:38] LABS: HCG,QUALITATIVE URINE Positive
[2023-11-13 19:39] LABS: URINE APPEARANCE CLEAR; URINE BILIRUBIN NEGATIVE (NEGATIVE); URINE COLOR YELLOW; URINE GLUCOSE (UA) NEGATIVE (NEGATIVE); URINE KETONE TRACE (NEGATIVE); URINE LEUK ESTERASE NEGATIVE (NEGATIVE); URINE NITRITE NEGATIVE (NEGATIVE); URINE PROTEIN NEGATIVE (NEGATIVE)
[2023-11-13 19:55] LABS: ALBUMIN 2.5 g/dl (3.4-5.0); BLOOD UREA NITROGEN 7.8 mg/dL (7-18)
[2023-11-13 19:57] LABS: CREATININE 0.8 mg/dL (0.55-1.3)
[2023-11-13 19:58] LABS: BILIRUBIN,TOTAL 0.2 mg/dL (0.2-1)
[2023-11-13 19:59] LABS: TOT PROT 6.5 g/dl (6.4-8.2)
[2023-11-13] MEDS ORDERED: SODIUM CHLORIDE 0.9% 500 ML INFUS.BAG IV ONE (20:37)
[2023-11-13] MEDS ORDERED: ONDANSETRON 4 MG/2 ML VIAL IVPUSH ONE (20:37)
[2023-11-13] MEDS ORDERED: ONDANSETRON 4 MG/2 ML VIAL ONE (20:46)
[2023-11-13] MEDS ORDERED: METOCLOPRAMIDE HCL INJECTION 10 MG/2 ML VIAL IVPUSH ONE (22:12)
[2023-11-13] MEDS ORDERED: METOCLOPRAMIDE HCL INJECTION 10 MG/2 ML VIAL ONE (22:16)
[2023-11-13] MEDS ORDERED: FAMOTIDINE 20 MG TABLET PO ONE (22:19)
[2023-11-13] MEDS ORDERED: FAMOTIDINE 20 MG TABLET ONE (22:21)
== END 2023-11-13 22:53 | disposition home or self-care (01) ==
LOC: JER 18:14
PROC: 3E033NZ Introduction of Analgesics, Hypnotics, Sedatives into Peripheral Vein, Percutaneous Approach (ICD-10-PCS; principal; 2023-11-13)
PROC: 3E033GC Introduction of Other Therapeutic Substance into Peripheral Vein, Percutaneous Approach (ICD-10-PCS; 2023-11-13)
DX: O21.0 Mild hyperemesis gravidarum (principal); Z3A.17 17 weeks gestation of pregnancy
CPT/HCPCS: 36415; 76801-TC; 80053; 81003; 84702; 84703; 85025; 86850; 86900; 86901; 87086; 99284-25

== ENCOUNTER 2024-04-14 11:57 | Emergency (ER) | payer OTHER ==
[2024-04-14 12:06] VITALS: BP 126/50; PULSE 84; RESP 18; TEMP 98.4; BMI 56.7
[2024-04-14 13:03] LABS: THROAT:GRP A STREP NOT DETECTED (NOTDETECTED)
== END 2024-04-14 13:37 | disposition home or self-care (01) ==
LOC: JER 11:57
DX: O98.513 Other viral diseases complicating pregnancy, third trimester (principal); B34.9 Viral infection, unspecified; O99.891 Other specified diseases and conditions complicating pregnancy; R20.2 Paresthesia of skin; H92.03 Otalgia, bilateral; O99.513 Diseases of the respiratory system complicating pregnancy, third trimester; J02.9 Acute pharyngitis, unspecified; Z20.822 Contact with and (suspected) exposure to COVID-19; Z3A.00 Weeks of gestation of pregnancy not specified
CPT/HCPCS: 0241U-QW; 87651; 99283-25

== ENCOUNTER 2024-04-18 23:00 | Inpatient (IN) | payer OTHER ==
[2024-04-18] MEDS: NIFEdipine 10 MG CAPSULE (FP) PO ONE (23:35)
[2024-04-18] MEDS: ELECTROLYTE-148 SOLN 1,000 ML IV SCH (23:45)
[2024-04-18 23:49] VITALS: RESP 17
[2024-04-19] MEDS: MAGNESIUM 4GM/H20 - 4 GM/100 ML IVPB IVPB ONE (00:07)
[2024-04-19 00:10] VITALS: BMI 56.7
[2024-04-19 00:24] LABS: BASO % 0.4 % (0-2.0); EOS % 1.3 % (0-4.5); HEMATOCRIT 31.9 % (32.4-45.2); HEMOGLOBIN 10.6 GM/dL (10.7-15.3); MCH 24.5 pg (25.7-33.7); MCHC 33.2 g/dl (32.0-36.0); MEAN CELL VOLUME 73.8 fl (80-96); MEAN PLT VOLUME 10.5 fl (7.5-11.1); MONO % 4.7 % (3.8-10.2); NEUT % 67.6 % (42.8-82.8); PLATELET COUNT 113 10^3/uL (134-434); RBC 4.32 M/mm3 (3.60-5.2); RDW 16.5 % (11.6-15.6); RETICULOCYTES 1.98 % (0.5-1.5); WHITE BLOOD COUNT 5.1 K/mm3 (4.0-10.0)
[2024-04-19] MEDS ORDERED: ONDANSETRON 4 MG/2 ML VIAL IVPB PRN (00:24)
[2024-04-19 00:36] LABS: INR 1.03 (0.83-1.09); PROTHROMBIN TIME (PATIENT) 11.8 SEC (9.7-13.0)
[2024-04-19 00:37] LABS: POTASSIUM 3.7 mmol/L (3.5-5.1)
[2024-04-19 00:38] LABS: ACTIVATED PTT 27.8 SECONDS (25.2-36.5)
[2024-04-19 00:39] LABS: ALBUMIN 2.3 g/dl (3.4-5.0); CALCIUM 8.4 mg/dL (8.5-10.1)
[2024-04-19 00:40] LABS: BLOOD UREA NITROGEN 8.9 mg/dL (7-18)
[2024-04-19] MEDS: MAGNESIUM SULFATE 20GM/500ML - 20 GM/500 ML INFUS.BAG IVPB SCH (00:40)
[2024-04-19 00:41] LABS: URIC ACID 5.2 mg/dL (2.6-7.2)
[2024-04-19 00:43] LABS: CREATININE 0.8 mg/dL (0.55-1.3)
[2024-04-19 00:44] LABS: BILIRUBIN,TOTAL 0.3 mg/dL (0.2-1); TOT PROT 6.1 g/dl (6.4-8.2)
[2024-04-19 00:54] LABS: URINE APPEARANCE CLEAR; URINE BILIRUBIN NEGATIVE (NEGATIVE); URINE COLOR YELLOW; URINE GLUCOSE (UA) NEGATIVE (NEGATIVE); URINE KETONE NEGATIVE (NEGATIVE); URINE LEUK ESTERASE NEGATIVE (NEGATIVE); URINE NITRITE NEGATIVE (NEGATIVE); URINE PROTEIN NEGATIVE (NEGATIVE)
[2024-04-19 01:05] LABS: HEPATITIS B SURFACE AG MATERN NON-REACTIVE (NONREACTIVE)
[2024-04-19 01:33] LABS: HIV INTERPRETATION NEGATIVE (NEGATIVE)
[2024-04-19 01:43] LABS: URINE AMPHETAMINES NEGATIVE (NEGATIVE)
[2024-04-19 01:44] LABS: METHADONE, UR NEGATIVE (NEGATIVE); PHENCYCLIDINE,URINE NEGATIVE (NEGATIVE); URINE BENZODIAZEPINES NEGATIVE (NEGATIVE)
[2024-04-19 01:45] LABS: URINE BARBITURATES NEGATIVE (NEGATIVE)
[2024-04-19 01:55] LABS: COCAINE, UR NEGATIVE (NEGATIVE); OPIATES, URI NEGATIVE (NEGATIVE)
[2024-04-19] MEDS ORDERED: ACETAMINOPHEN 325 MG TABLET (FP) ONE (03:16)
[2024-04-19] MEDS: ACETAMINOPHEN 325 MG TABLET (FP) PO ONE (03:18)
[2024-04-19 03:39] VITALS: BP 109/69; PULSE 94; TEMP 98.3
== END 2024-04-19 03:26 | disposition short-term general hospital (02) | DRG 566 ==
LOC: JDEL 23:00 → JLDR 23:30 → JDEL 23:30 → JLDR 23:51
PROVIDERS: ADMIT Obstetrics & Gynecology; ATTEND Obstetrics & Gynecology
DX: O34.219 Maternal care for unspecified type scar from previous cesarean delivery (principal); O14.94 Unspecified pre-eclampsia, complicating childbirth; Z3A.39 39 weeks gestation of pregnancy
CPT/HCPCS: 36415; 59025; 80053; 80307; 81003; 82570; 82977; 83010; 83735; 84156; 84450; 84460; 84550; 85025; 85045; 85610; 85730; 86780; 86803; 86850; 86900; 86901; 87340; 87389; 87635

== ENCOUNTER 2024-06-04 23:36 | Emergency (ER) | payer OTHER ==
[2024-06-04 23:49] VITALS: PULSE 59; RESP 20; TEMP 98.4; BMI 50.5
[2024-06-05 00:34] VITALS: BP 133/56
[2024-06-05] MEDS ORDERED: ACETAMINOPHEN INJECTION 100 ML IVPB ONE (00:50)
[2024-06-05] MEDS ORDERED: METOCLOPRAMIDE HCL INJECTION 10 MG/2 ML VIAL ONE (00:50)
[2024-06-05 00:54] LABS: BASO % 0.7 % (0-2.0); EOS % 3.1 % (0-4.5); HEMATOCRIT 36.2 % (32.4-45.2); HEMOGLOBIN 11.8 GM/dL (10.7-15.3); LYMPH % 39.2 % (8-40); MCH 24.2 pg (25.7-33.7); MCHC 32.5 g/dl (32.0-36.0); MEAN CELL VOLUME 74.4 fl (80-96); PLATELET COUNT 145 10^3/uL (134-434); RBC 4.87 M/mm3 (3.60-5.2); RDW 18.3 % (11.6-15.6); WHITE BLOOD COUNT 5.8 K/mm3 (4.0-10.0)
[2024-06-05] MEDS: METOCLOPRAMIDE HCL INJECTION 10 MG/2 ML VIAL IVPB ONE (01:09)
[2024-06-05] MEDS: SODIUM CHLORIDE 0.9% 500 ML INFUS.BAG IV ONE (01:09)
[2024-06-05] MEDS: ACETAMINOPHEN 1000 MG/100 ML BAG IVPB ONE (01:11)
[2024-06-05 01:19] LABS: EPI CELLS 9 /uL (0-25.1); HYALINE CASTS 0 /uL (0-3.1); PH,URINE 6.5 (5.0-8.0); URINE APPEARANCE CLEAR; URINE BACTERIA 90 /uL (0-1359); URINE BILIRUBIN NEGATIVE (NEGATIVE); URINE COLOR YELLOW; URINE GLUCOSE (UA) NEGATIVE (NEGATIVE); URINE KETONE NEGATIVE (NEGATIVE); URINE LEUK ESTERASE NEGATIVE (NEGATIVE); URINE NITRITE NEGATIVE (NEGATIVE); URINE PROTEIN NEGATIVE (NEGATIVE); URINE RBC 523 /uL (0-23.9); URINE WBC 8 /uL (0-25.8)
[2024-06-05 01:20] LABS: POTASSIUM 3.7 mmol/L (3.5-5.1)
[2024-06-05 01:22] LABS: CALCIUM 8.6 mg/dL (8.5-10.1)
[2024-06-05 01:23] LABS: ALBUMIN 3.2 g/dl (3.4-5.0); BLOOD UREA NITROGEN 15.9 mg/dL (7-18)
[2024-06-05 01:27] LABS: BILIRUBIN,TOTAL 0.2 mg/dL (0.2-1); TOT PROT 6.5 g/dl (6.4-8.2)
== END 2024-06-05 02:57 | disposition home or self-care (01) ==
LOC: JER 23:36
PROC: 3E033NZ Introduction of Analgesics, Hypnotics, Sedatives into Peripheral Vein, Percutaneous Approach (ICD-10-PCS; principal; 2024-06-05)
PROC: 3E033GC Introduction of Other Therapeutic Substance into Peripheral Vein, Percutaneous Approach (ICD-10-PCS; 2024-06-05)
DX: O99.893 Other specified diseases and conditions complicating puerperium (principal); R51.9 Headache, unspecified; R42 Dizziness and giddiness; Z3A.00 Weeks of gestation of pregnancy not specified
CPT/HCPCS: 36415; 80053; 81003; 85025; 99284-25; J0131

== ENCOUNTER 2024-08-03 08:53 | Emergency (ER) | payer OTHER ==
[2024-08-03 09:18] VITALS: BP 131/55; PULSE 74; RESP 20; TEMP 98.6; BMI 49.9
[2024-08-03] MEDS ORDERED: ACETAMINOPHEN INJECTION 100 ML ONE (09:52)
[2024-08-03 10:02] LABS: BASO % 0.7 % (0-2.0); EOS % 3.7 % (0-4.5); HEMATOCRIT 33.4 % (32.4-45.2); LYMPH % 30.3 % (8-40); MCH 25.4 pg (25.7-33.7); MEAN CELL VOLUME 76.7 fl (80-96); MEAN PLT VOLUME 10.6 fl (7.5-11.1); MONO % 4.1 % (3.8-10.2); NEUT % 61.2 % (42.8-82.8); PLATELET COUNT 169 10^3/uL (134-434); RBC 4.35 M/mm3 (3.60-5.2); WHITE BLOOD COUNT 5.7 K/mm3 (4.0-10.0)
[2024-08-03] MEDS: ACETAMINOPHEN 1000 MG/100 ML BAG IVPB ONE (10:02)
[2024-08-03 10:11] LABS: INR 1.06 (0.83-1.09); PROTHROMBIN TIME (PATIENT) 12.2 SEC (9.7-13.0)
[2024-08-03 10:14] LABS: ACTIVATED PTT 28.5 SECONDS (25.2-36.5)
[2024-08-03 10:16] LABS: POTASSIUM 3.9 mmol/L (3.5-5.1)
[2024-08-03 10:20] LABS: CALCIUM 8.4 mg/dL (8.5-10.1)
[2024-08-03 10:21] LABS: ALBUMIN 3.1 g/dl (3.4-5.0); BLOOD UREA NITROGEN 11.4 mg/dL (7-18); MAGNESIUM 2.1 mg/dL (1.8-2.4)
[2024-08-03 10:24] LABS: CREATININE 0.7 mg/dL (0.55-1.3)
[2024-08-03 10:25] LABS: BILIRUBIN,TOTAL 0.2 mg/dL (0.2-1); TOT PROT 6.5 g/dl (6.4-8.2)
== END 2024-08-03 12:35 | disposition home or self-care (01) ==
LOC: JER 08:53
PROC: 3E033NZ Introduction of Analgesics, Hypnotics, Sedatives into Peripheral Vein, Percutaneous Approach (ICD-10-PCS; principal; 2024-08-03)
DX: O04.80 (Induced) termination of pregnancy with unspecified complications (principal); R07.89 Other chest pain; R10.2 Pelvic and perineal pain; R10.30 Lower abdominal pain, unspecified
CPT/HCPCS: 36415; 71045-TC-FY; 80053; 83735; 84484; 84702; 85025; 85610; 85730; 86850; 86900; 86901; 93005; 93010; 99285-25; J0131

== ENCOUNTER 2025-05-18 01:22 | Observation (INO) | payer OTHER ==
[2025-05-18 01:29] VITALS: BMI 51.6
[2025-05-18] MEDS ORDERED: ACETAMINOPHEN INJECTION 100 ML ONE (01:55)
[2025-05-18] MEDS: ACETAMINOPHEN 1000 MG/100 ML BAG IVPB ONE (03:38)
[2025-05-18 03:59] LABS: ABSOLUTE IMMATURE GRANULOCYTES 0.07 x10^3/uL (0.0-0.031); BASOPHILS # 0.04 x10^3/uL (0.01-0.08); EOSINOPHIL % 4.3 % (0.7-5.8); EOSINOPHILS # 0.21 x10^3/uL (0.04-0.36); MCHC 30.3 g/dl (32.2-35.5); MEAN CELL VOLUME 75.8 fl (79.4-94.8); MONOCYTE # 0.22 x10^3/uL (0.24-0.86); MONOCYTE % 4.5 % (4.7-12.5); RDW 16.5 % (12.1-16.8)
[2025-05-18 04:17] LABS: CO2 26.0 mmol/L (21-32); GLUCOSE,RANDOM 91.0 mg/dL (74-106)
[2025-05-18 04:20] LABS: CREATININE 0.8 mg/dL (0.55-1.3); SGOT/AST 25.0 U/L (15-37); SGPT/ALT 29.0 U/L (13-61)
[2025-05-18 04:21] LABS: TOT PROT 7.9 g/dl (6.4-8.2)
[2025-05-18 04:23] LABS: ALK PHOS 92.0 U/L (45-117)
[2025-05-18] MEDS ORDERED: ASPIRIN 325 MG TABLET ONE ×2 (05:04→05:09)
[2025-05-18 05:09] LABS: HCV DIAGNOSTIC IN-HOUSE W/RFLX NON-REACTIVE (NONREACTIVE)
[2025-05-18 05:10] LABS: HIV INTERPRETATION NEGATIVE (NEGATIVE)
[2025-05-18] MEDS ORDERED: KETOROLAC TROMETHAMINE 15 MG/ML VIAL IVPUSH PRN (05:11)
[2025-05-18] MEDS: ASPIRIN 81 MG CHEWABLE TABLETS PO ONE (05:13)
[2025-05-18] MEDS: ACETAMINOPHEN 325 MG TABLET (FP) PO ONE (05:16)
[2025-05-18] MEDS: ASPIRIN COATED 81 MG TABLET.EC PO SCH (10:30)
[2025-05-18 10:36] VITALS: BP 128/72; PULSE 78; RESP 16; TEMP 98.8
[2025-05-18] MEDS ORDERED: ATORVASTATIN CA 40 MG TABLET (FP) PO SCH (22:00)
== END 2025-05-18 10:27 | disposition home or self-care (01) ==
LOC: JER 01:22 → JERBED 04:24
PROVIDERS: ADMIT Hospitalist; ATTEND Internal Medicine
DX: R07.89 Other chest pain (principal); R94.31 Abnormal electrocardiogram [ECG] [EKG]; S09.90XA Unspecified injury of head, initial encounter; T76.11XA Adult physical abuse, suspected, initial encounter; I15.9 Secondary hypertension, unspecified; E66.01 Morbid (severe) obesity due to excess calories; Z68.43 Body mass index [BMI] 50.0-59.9, adult; Z63.0 Problems in relationship with spouse or partner; Y04.2XXA Assault by strike against or bumped into by another person, initial encounter; Y92.009 Unspecified place in unspecified non-institutional (private) residence as the place of occurrence of the external cause
CPT/HCPCS: 36415; 70450-TC; 71045-TC-FY; 80053; 84484; 84703; 85025; 86803; 87389; 93005; 93010; 96374; 96375; 99285-25; G0378